=== PATIENT | female | born 1935 | race Caucasian/White ===

== ENCOUNTER 2016-12-14 13:47 | Inpatient (IN) | payer MEDICARE, MEDICAID ==
[~2016-12-14] VITALS: Ht 165.1 cm; Wt 53.5 kg
--- NOTE | 2016-12-14 13:50 | NUR ---
BIBRA 89 FROM HOME C/O GENERALIZED WEAKNESS AND SOB, PATIENT IS AAO4. APPEARS IN NO APPARENT DISTRESS. RESPIRATION EVEN AND UNLABORED. ON O2 VIA NC @2LPM. SKIN IS WARM TO TOUCH AND NON FDIAPHORETIC. AFEBRILE. VSS. 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 PATIENT DID NOT HAVE HD TODAY.
--- NOTE | 2016-12-14 14:26 | NUR ---
DESULFURIZER HAND AT BEDSIDE
[2016-12-14] MEDS ORDERED: VALS80TA2 PO (14:39)
[2016-12-14] MEDS ORDERED: AMIO200T2 PO (14:39)
[2016-12-14] MEDS ORDERED: RASA1TAB4 PO (14:39)
[2016-12-14] MEDS ORDERED: BUME1TAB4 PO (14:39)
[2016-12-14] MEDS ORDERED: CALC500T52 PO (14:39)
[2016-12-14] MEDS ORDERED: BUME1TAB16 PO (14:39)
[2016-12-14] MEDS ORDERED: UBIQ200C PO (14:39)
[2016-12-14] MEDS ORDERED: PRAM0.253 PO (14:39)
[2016-12-14] MEDS ORDERED: ACID1TAB12 PO (14:39)
[2016-12-14] MEDS ORDERED: ONDA4TAB5 PO (14:39)
[2016-12-14] MEDS ORDERED: CINA30TA PO (14:39)
[2016-12-14] MEDS ORDERED: SEVE800T8 PO (14:39)
[2016-12-14 14:48] LABS: CALCIUM, SERUM 9.1 mg/dL (8.5-10.1); CARBON DIOXIDE 29 mmol/L (21-32); CHLORIDE 96 mmol/L (98-107); CREATININE 3.5 mg/dL (0.6-1.3); GLUCOSE 98 mg/dL (74-106); POTASSIUM 4.4 mmol/L (3.5-5.1); SODIUM SERUM 129 mmol/L (136-145); UREA NITROGEN, BLOOD 30 mg/dL (7-18)
[2016-12-14 14:53] LABS: ALBUMIN 2.3 g/dL (3.4-5.0); ALKALINE PHOSPHATASE 126 U/L (46-116); ASPARTATE AMINOTRANSFERASE 17 U/L (15-37); BILIRUBIN,DIRECT 0.1 mg/dL (0.0-0.2); BILIRUBIN,TOTAL 0.4 mg/dL (0.2-1.0); TOTAL PROTEIN, SERUM 5.8 g/dL (6.4-8.2)
[2016-12-14 15:05] LABS: EOSINOPHILS % (AUTO) 0.3 % (0.0-6.0); HEMATOCRIT 29 % (33-45); HEMOGLOBIN 8.8 g/dL (11.5-14.8); LYMPHOCYTES # (AUTO) 1.1 /CMM (0.8-4.8); LYMPHOCYTES % (AUTO) 9.2 % (20.0-44.0); MEAN CORPUSCULAR HEMOGLOBIN 28 PG (26.0-33.0); MEAN CORPUSCULAR HGB CONC 31 g/dl (31.0-36.0); MEAN CORPUSCULAR VOLUME 92 fL (82-100); MONOCYTES # (AUTO) 0.6 /CMM (0.1-1.30); NEUTROPHILS # (AUTO) 10.5 /CMM (1.8-8.9); NEUTROPHILS % (AUTO) 85.5 % (43.0-81.0); PLATELET COUNT (AUTO) 333 /CMM (150-450); RDW COEFFICIENT OF VARIATION 17.1 (11.5-15.0); RED BLOOD CELL COUNT(AUTO) 3.11 MIL/uL (4.0-5.2); WHITE BLOOD COUNT (AUTO) 12.3 K/uL (4.3-11.0)
[2016-12-14 15:16] LABS: ALANINE AMINOTRANSFERASE 6 U/L (12-78)
--- NOTE | 2016-12-14 15:38 | NUR ---
PAGED CHRISSY PINON
--- NOTE | 2016-12-14 15:41 | NUR ---
NURSING WEAVE DEFECT CHARTING CLERK NOTIFIED ME THAT PATIENT IS ASSIGNED TO JOSE 119-2 HOWEVER BED WILL NOT BE AVAIALABLE UNTIL 1700
[2016-12-14 16:03] LABS: APPEARANCE,URINE Clear (CLEAR); BILIRUBIN,URINE Negative (NEGATIVE); BLOOD, URINE Small Ery/uL (NEGATIVE); COLOR,URINE Yellow (YELLOW); KETONES,URINE Trace (NEGATIVE); LEUKOCYTE ESTERASE ,URINE Small (NEGATIVE); NITRITE, URINE Negative (NEGATIVE); PROTEIN,URINE >=300 mg/dl (NEGATIVE); UGLUCOSE Negative (NEGATIVE); UROBILINOGEN,URINE 0.2 EU/dL (0.2)
[2016-12-14 16:07] LABS: INR 1.15 (0.87-1.13); PROTHROMBIN TIME 12.1 SECS (9.5-12.7)
[2016-12-14 16:15] LABS: BACTERIA,URINE Few /HPF (None Seen); SQUAMOUS EPITHELIAL CELL,UR Few /HPF (None Seen)
--- NOTE | 2016-12-14 16:33 | NUR ---
REPORT GIVEN TO SAROJ CARLISLE FOR ANDRA
--- NOTE | 2016-12-14 17:00 | NUR ---
ADMISSION NOTE RECEIVED PATIENT FROM [facility] IN ER VIA [facility]. DAUGHTER KAMILAH AT PATIENT'S BEDSIDE PROVIDING HISTORY. A+O X2, FOLLOWS SIMPLE COMMANDS. O2 NC 2L, SAT 95%, breathing even and unlabored no chest pain. L chest wall pacemaker, A pacing- 60bpm. generalized edema. wound assessment documented, photos in chart. L wrist iv patent. swallowing without aspiration. oriented to unit, discussed plan of care.
--- NOTE | 2016-12-14 18:19 | NUR ---
PT'S DAUGHTER KAMILAH SAID PATIENTS TAKES SINEMET 50/200 1 TAB TID, MED NOT IN RECON. NOTIFIED CHRISSY WITH 1 NEW TELEPHONE ORDER TO CONTINUE THAT HOME MED.
[2016-12-14 18:45] VITALS: BP 121/53
--- NOTE | 2016-12-14 19:30 | NUR ---
JOSE RN OPENING NOTES: RECEIVED PT ON BED AWAKE ALOX2-3 AND VERBALLY RESPONSIVE ON O2 VIA NC AT 2LPM, TOLERATED WELL, NOT IN APPARENT DISTRESS. CURRENTLY HAVING DIALYSIS AT THIS TIME, WITH DAUGHTER KAMILAH AT BEDSIDE. AFIB CONTROLLED ON MONITOR A PACING AT 60 BPM. IRMA AV SHUNT, WITH IV ACCES ON L WRIST G20 INTACT, KEPT SL. SAFETY MEASURES ENSURED. CALL LIGHT WITHIN REACH. CONTINUOUSLY MONITORED PATIENT.
[2016-12-14 20:00] VITALS: BP 152/61
[2016-12-14 20:29] VITALS: BP 152/61
--- NOTE | 2016-12-14 20:30 | NUR ---
RN NOTES: HD DONE, PATIENT NOT IN APPARENT DISTRESS. VITALS DOCUMENTED. 2LITERS OUTPUT. CONTINUOUSLY MONITORED.
--- NOTE | 2016-12-14 22:00 | NUR ---
RN NOTES: NOTED IV ACCESS INFILTRATED. PATIENT IS A HARD STICK UNABLE TO INSERT AFTER 2 ATTEMPTS. FAMILY AT BEDSIDE VERY CONCERNED. CALLED DR SARAH HARRIS IF OK TO GET MIDLINE ORDERS. ORDER OBTAINED. ALTAGRACIA PICC RN IN TO PERFORM MIDLINE INSERTION. SUCCESSFUL INSERTION NOTED. CONTINUOUSLY MONITORED SITE.
[2016-12-15] VITALS (8 sets, daily range): BP systolic 122–144; BP diastolic 49–63
[2016-12-15 06:31] LABS: HEMATOCRIT 28 % (33-45); HEMOGLOBIN 8.6 g/dL (11.5-14.8); MEAN CORPUSCULAR HEMOGLOBIN 28 PG (26.0-33.0); MEAN CORPUSCULAR HGB CONC 31 g/dl (31.0-36.0); MEAN CORPUSCULAR VOLUME 92 fL (82-100); PLATELET COUNT (AUTO) 279 /CMM (150-450); RDW COEFFICIENT OF VARIATION 17.4 (11.5-15.0); RED BLOOD CELL COUNT(AUTO) 3.03 MIL/uL (4.0-5.2); WHITE BLOOD COUNT (AUTO) 10.3 K/uL (4.3-11.0)
[2016-12-15 06:37] LABS: CALCIUM, SERUM 8.6 mg/dL (8.5-10.1); CARBON DIOXIDE 31 mmol/L (21-32); CHLORIDE 99 mmol/L (98-107); CREATININE 2.8 mg/dL (0.6-1.3); GLUCOSE 89 mg/dL (74-106); MAGNESIUM 1.7 mg/dL (1.8-2.4); PHOSPHORUS 3.4 mg/dL (2.5-4.9); POTASSIUM 4.1 mmol/L (3.5-5.1); SODIUM SERUM 134 mmol/L (136-145); UREA NITROGEN, BLOOD 23 mg/dL (7-18)
[2016-12-15 06:51] LABS: CHOLESTEROL 160 mg/dL (<200); HDL CHOLESTEROL 107 mg/dL (40-60); LDL 45 mg/dL (0-99); TRIGLYCERIDES 47 mg/dL (30-150)
--- NOTE | 2016-12-15 07:00 | NUR ---
RN NOTES: PATIENT NOT IN APPARENT DISTRESS. SKIN CARE RENDERED. AM LABS DRAWN, PENDING. FAMILY REMAINED AT BEDSIDE.CONTINUOUSLY MONITORED. ENDORSED TO AM SHIFT RN.
--- NOTE | 2016-12-15 07:20 | NUR ---
JOSE INITIAL NOTE RECEIVED PT IN BED, AWAKE, A/O X4, ABLE TO MAKE NEEDS KNOWN, ABLE TO FOLLOW COMMANDS, PT IS ON 2L NC, SATING WELL, NO S/S OF RESP. DISTRESS OR SOB NOTED AT THIS TIME, PT IS ON TELE MONITOR SHOWING A PACING W/BBB @60 BPM, NO C/O OF CHEST PAIN OR DISCOMFORT AT THIS TIME, PT HAS MULTIPLE SKIN ISSUES NOTED, TREATMENTS CARRIED OUT, PT HAS ALYSSA MIDLINE,RUNNING TKO, C/D/I/PATENT, FLUSHING WELL, NO S/S OF INFECTION/ INFILTRATION NOTED AT THIS TIME, IRMA AV SHUNT, DRESSING INTACT/CLEAN, DAUGHTERS AT BEDSIDE AT THIS TIME,ALL SAFETY MEASURES IN PLACE AT ALL TIMES, CALL LIGHT WITHIN EASY REACH, ALL NEEDS MET, WILL MONITOR PT CLOSELY FOR CHANGES
[2016-12-15 09:10] LABS: LYMPHOCYTES % (MANUAL) 5 % (16-48); MONOCYTES % (MANUAL) 6 % (0-11.0); NEUTROPHILS % (MANUAL) 89 (42-76)
--- NOTE | 2016-12-15 12:36 | NUR ---
JOSE NOTE MANUALLY ADMINISTERED MEDICATION, D/T SCANNER BROKEN, NOTIFIED IT X 4.
[2016-12-15 12:56] LABS: IRON, SERUM 27 ug/dl (50-175); TOTAL IRON BINDING CAPACITY 136 ug/dl (250-450)
[2016-12-15 13:10] LABS: FERRITIN 194 ng/mL (8-388)
--- NOTE | 2016-12-15 14:42 | NUR ---
consuelo note informed dr. henry regarding new consult. Addendum: 12/15/16 at 1444 by DUNG CHAN RN wrong pt
[2016-12-15 17:42] LABS: ABG BASE EXCESS 10.3 mmol/L; ABG OXYGEN SATURATION 94.4 % (92.0-98.5); ABG PCO2 72.6 mmHg (35.0-45.0); ABG PH 7.337 (7.350-7.450); ABG PO2 103.5 mmHg (75.0-100.0); AaDO2 25.1 mmHg; COHb 0.2 % (0.5-1.5); MetHb 0.3 % (0.0-1.5); O2Hb 93.9 % (94.0-97.0); SITE, ABG Left Radial; VENT MODE, BG 3/L NASAL CANNULA
--- NOTE | 2016-12-15 19:33 | NUR ---
RN INITIAL NOTE; PT ON THE BED RESTING , FAMILY AT THE BED SIDE . A/O X 3 , HARD OF HEARING . BREATHING EVEN AND UNLABORED ON 2 LPM VIA NC . TELE MONITOR SHOWING A-PACING 60 . ALYSSA MIDLINE INTACT AND PATENT . IRMA AV SHUNT INTACT . BRUIT AND THRILL PRESENT . PT IS ANURIC . CONTINENT TO BOWEL . BED IN THE LOWEST AND LOCKED POSITION . SAFETY MEASURES APPLIED. DENIED ANY PAIN AT THIS TIME . WILL CONTINUE TO MONITOR .
[2016-12-16] VITALS (8 sets, daily range): BP systolic 146–167; BP diastolic 47–65
--- NOTE | 2016-12-16 01:05 | NUR ---
RN NOTE; PRN ZOFRAN 4 MG IV GIVEN FOR C/O NAUSEA . TOLERATED WELL AT THIS TIME . WILL REASSESS.
[2016-12-16 06:32] LABS: HEMATOCRIT 29 % (33-45); HEMOGLOBIN 9.2 g/dL (11.5-14.8); MEAN CORPUSCULAR HEMOGLOBIN 29 PG (26.0-33.0); MEAN CORPUSCULAR HGB CONC 32 g/dl (31.0-36.0); MEAN CORPUSCULAR VOLUME 91 fL (82-100); PLATELET COUNT (AUTO) 303 /CMM (150-450); RDW COEFFICIENT OF VARIATION 17.7 (11.5-15.0); RED BLOOD CELL COUNT(AUTO) 3.19 MIL/uL (4.0-5.2); WHITE BLOOD COUNT (AUTO) 11.1 K/uL (4.3-11.0)
--- NOTE | 2016-12-16 07:13 | NUR ---
RN EOS NOTE; PT REMAINED STABLE DURING THE SHIFT. NO ANY DISTRESS NOTED . ALL NEEDS ATTENDED PROMPTLY. ATB CONTINUE . WILL ENDORSE TO NEXT SHIFT RN FOR CONTINUITY OF CARE .
--- NOTE | 2016-12-16 07:30 | NUR ---
INDEPENDENT JEWELER AM NOTE; PT IN BED, ASLEEP, RESPONDS TO NAME AND TOUCH, FAMILY AT THE BED SIDE . A/O X 3 , HARD OF HEARING . BREATHING EVEN AND UNLABORED ON 2 LPM VIA NC . TELE MONITOR SHOWING A-PACING 60 . DENIED ANY PAIN AT THIS TIME . ALYSSA MIDLINE INTACT AND PATENT . IRMA AV SHUNT INTACT. BRUIT AND THRILL PRESENT . PT IS OLIGURIC, CONTINENT OF BOWEL . 2 GM NA, GLUTEN, LAST HD 12/15/16 2.5 L OUT. BED IN THE LOWEST AND LOCKED POSITION . SAFETY MEASURES APPLIED. WILL CONTINUE TO MONITOR .
[2016-12-16 08:31] LABS: CARBON DIOXIDE 34 mmol/L (21-32); CHLORIDE 97 mmol/L (98-107); CREATININE 2.6 mg/dL (0.6-1.3); GLUCOSE 82 mg/dL (74-106); MAGNESIUM 1.8 mg/dL (1.8-2.4); POTASSIUM 4.4 mmol/L (3.5-5.1); SODIUM SERUM 133 mmol/L (136-145); UREA NITROGEN, BLOOD 20 mg/dL (7-18)
--- NOTE | 2016-12-16 09:30 | NUR ---
MULTIPLE DRUM SANDER NOTES ADMINISTERED DUE MEDS.
[2016-12-16 12:20] LABS: BAND % (MANUAL) 1 % (0.0-5.0); EOSINOPHILS % (MANUAL) 2 % (0-4); LYMPHOCYTES % (MANUAL) 13 % (16-48); MONOCYTES % (MANUAL) 6 % (0-11.0); NEUTROPHILS % (MANUAL) 78 (42-76)
--- NOTE | 2016-12-16 13:09 | NUR ---
ELECTRIC MOTOR FITTER NOTES STARTED ZOSYN IV.
--- NOTE | 2016-12-16 16:37 | NUR ---
BENCH CARPENTER NOTES STARTED ISIAH RAZA.
--- NOTE | 2016-12-16 18:30 | NUR ---
DIMENSION WAREHOUSE SUPERVISOR NOTES PATIENT RESTING COMFORTABLY IN BED, NOT IN ANY DISTRESS, DENIES PAIN. ALYSSA MIDLINE IN PLACE, FLUSHES WELL, SITE CLEAR, CDI DRESSING. ALL NEEDS MET. NO OTHER SIGNIFICANT CHANGE IN CONDITION. CALL LIGHT WITHIN REACH. FAMILY AT BEDSIDE. SAFETY MEASURES IN PLACE. WILL ENDORSE TO NEXT SHIFT FOR ANDRA.
--- NOTE | 2016-12-16 19:05 | NUR ---
SERVICE ORDER EXPEDITER OPENING NOTES: RECEIVED PT IN BED RESTING COMFORTABLY WITH FAMILY AT BEDSIDE. PT IS ON 2LPM VIA NC AND IS TOLERATING WELL. PT HAS ALYSSA MIDLINE AND IRMA AV SHUNT WELL. CALL LIGHT WITHIN PT'S REACH. NO S/S OF DISTRESS NOTED AT THIS TIME. BED KEPT IN LOW, LOCKED POSITION, AND SIDE RAILS X 2 UP. WILL CONTINUE TO MONITOR PT.
--- NOTE | 2016-12-16 22:00 | NUR ---
PT REFUSES BIPAP
--- NOTE | 2016-12-16 22:10 | NUR ---
PREPRESS SUPERVISOR NOTES: PT ALONG WITH DAUGHTER AT BEDSIDE REFUSED BIPAP. PT IS CLAUSTROPHOBIC AND DAUGHTER SAID SHE WILL NOT COOPERATE.
[2016-12-17] VITALS: BP 162/75
--- NOTE | 2016-12-17 | NUR ---
LINE O SCRIBE OPERATOR NOTES: PT DENIES OF ANY PAIN. NO S/S OF DISTRESS NOTED AT THIS TIME. WILL CONTINUE TO MONITOR PT.
[2016-12-17 04:00] VITALS: BP 168/57
--- NOTE | 2016-12-17 05:51 | NUR ---
PLATER SUPERVISOR NOTES: RECHECKED BP AND IS NOW 160/63 HR 62. PT STILL DENIES OF ANY DISCOMFORT OR PAIN.
[2016-12-17 06:27] LABS: HEMATOCRIT 31 % (33-45); HEMOGLOBIN 9.7 g/dL (11.5-14.8); MEAN CORPUSCULAR HEMOGLOBIN 29 PG (26.0-33.0); MEAN CORPUSCULAR HGB CONC 31 g/dl (31.0-36.0); MEAN CORPUSCULAR VOLUME 91 fL (82-100); PLATELET COUNT (AUTO) 328 /CMM (150-450); RDW COEFFICIENT OF VARIATION 18.1 (11.5-15.0); RED BLOOD CELL COUNT(AUTO) 3.41 MIL/uL (4.0-5.2); WHITE BLOOD COUNT (AUTO) 11.6 K/uL (4.3-11.0)
--- NOTE | 2016-12-17 06:36 | NUR ---
MANAGER PEST NOTES: PT COMPLAINED OF NAUSEA. PT WAS ADMINISTERED ONDANSETRON IV. WILL CONTINUE TO MONITOR PT.
[2016-12-17 07:02] LABS: CALCIUM, SERUM 9.4 mg/dL (8.5-10.1); CARBON DIOXIDE 32 mmol/L (21-32); CHLORIDE 95 mmol/L (98-107); GLUCOSE 78 mg/dL (74-106); MAGNESIUM 1.7 mg/dL (1.8-2.4); PHOSPHORUS 3.6 mg/dL (2.5-4.9); POTASSIUM 4.5 mmol/L (3.5-5.1); SODIUM SERUM 131 mmol/L (136-145); UREA NITROGEN, BLOOD 24 mg/dL (7-18)
--- NOTE | 2016-12-17 07:15 | NUR ---
GERONTOLOGY AIDE CLOSING NOTES: ALL NEEDS WERE ATTENDED AND ANTICIPATED FOR. PT IS IN BED RESTING WITH DAUGHTER AT BEDSIDE. PT IS ON 2LPM VIA NC AND IS TOLERATING WELL. PT HAS ALYSSA MIDLINE. MIDLINE IS FLUSHING WELL. PT ALSO HAS IRMA AV SHUNT WELL. CALL LIGHT WITHIN PT'S REACH. NO S/S OF DISTRESS NOTED AT THIS TIME. BED KEPT IN LOW, LOCKED POSITION, AND SIDE RAILS X 2 UP. ENDORSED TO AM NURSE FOR ANDRA.
--- NOTE | 2016-12-17 07:40 | NUR ---
RN NOTES REPORT RECV'D FROM NOC RN. PT AWAKE. NONVERBAL. VENT SETTINGS AC 12, TV 5, FIO2 30%, PEEP 5. NON LABORED BREATHING. SUCTION NEEDED. HOB ELEVATED. MALFUNCTIONING HD CATH. TELE NSR 80'S. MULTIPLE SACRAL AND THIGH PRESSURE SORES SPECIALTY MATRESS ORDERED AND MEPILEX DRSGS CDI. WBC 11.6. WOUND CARE NURSE NOTIFIED. RH 20G IV PATENT. BED IN LOW LOCKED POSITION. WILL CONT TO MONITOR CLOSELY.
--- NOTE | 2016-12-17 07:59 | NUR ---
INSIDE TRUCKER INITIAL NOTE RN RECEIVED PT IN BED RESTING COMFORTABLY WITH DAUGHTER AT BEDSIDE. PT IS ON 2LPM VIA NC AND IS TOLERATING WELL. PT HAS ALYSSA MIDLINE AND IRMA AV SHUNT WELL. CALL LIGHT WITHIN PT'S REACH. NO S/S OF DISTRESS NOTED AT THIS TIME. BED IN LOW, LOCKED POSITION, AND SIDE RAILS X 2 UP. RN WILL CONTINUE TO MONITOR PT THROUGHOUT THE DAY . Addendum: 12/17/16 at 0802 by DEBI TREVIÑO RN PT IS ON TELE MONITOR AND IS A PACING WITH BBB.
[2016-12-17 08:00] VITALS: BP 141/48
[2016-12-17 10:18] LABS: LYMPHOCYTES % (MANUAL) 14 % (16-48); MONOCYTES % (MANUAL) 6 % (0-11.0); NEUTROPHILS % (MANUAL) 80 (42-76)
[2016-12-17 12:00] VITALS: BP_SYST 120; BP_SYST 141; BP_DIAS 54; BP_DIAS 55
[2016-12-17 16:00] VITALS: BP_SYST 151; BP_DIAS 44; BP_DIAS 72
--- NOTE | 2016-12-17 19:20 | NUR ---
RN NOTES RECEIVED PT ASLEEP ON BED. DAUGHTER AT BEDSIDE. PT IS AOX 3 ABLE TO VERBALIZED NEEDS. RESPONSIVE TO TACTILE AND VERBAL STIMULI. NO ACUTE RESP DISTRESS. TELE MONITOR REVEALS A- PACING WITH BBB HR 60'S. DENIES PAIN. NOTED LEFT FOREARM SKIN TEAR OUT OF DRESSING PLACED STERILE STRIPS. IV SITE ON ALYSSA MIDLINE INTACT AND PATENT. AND IRMA AV SHUNT WITH POSITIVE BRUIT AND THRILL. . KEPT PT CLEAN AND DRY. WILL MONITORED FREQ.
--- NOTE | 2016-12-17 19:26 | NUR ---
CUSHION SPRING ASSEMBLER CLOSING NOTES: ALL NEEDS MEET ATTENDED PT IS IN BED RESTING PT DAUGHTER AT BEDSIDE. PT IS ON 2LPM VIA NC AND IS TOLERATING WELL. PT HAS ALYSSA MIDLINE. MIDLINE IS FLUSHING WELL. PT ALSO HAS IRMA AV SHUNT WELL HD TODAY 1L REMOVED . CALL LIGHT WITHIN PT'S REACH. NO S/S OF DISTRESS NOTED AT THIS TIME. BED KEPT IN LOW, LOCKED POSITION, AND SIDE RAILS X 2 UP. ENDORSED TO PM NURSE FOR ANDRA.
[2016-12-17 20:00] VITALS: BP_SYST 152; BP_DIAS 45; BP_DIAS 75
[2016-12-18] VITALS: BP 141/42
[2016-12-18 04:00] VITALS: BP 138/41
--- NOTE | 2016-12-18 07:00 | NUR ---
RN NOTE RECEIVED PT ON BED, A/Ox3, ON O2 2L N/C , RESPIRATION EVEN AND UNLABORED, NO SOB NOTED, L UA MIDLINE CDI, SUPPORTIVE FAMILY AT THE BEDSIDE, CALL LIGHT WITHIN EASY REACH. BED LOCKED AND IN LOWEST POSITION , SIDE RAILS X 3 UP. CONTINUE TO MONITOR PT CLOSELY AND NOTIFY MD FOR ANY SIGNIFICANT CHANGES.
--- NOTE | 2016-12-18 07:07 | NUR ---
RN NOTES PT ASLEEP WELL ON BED. WITH O2 2LPM VIA NC SATING 98%. NO ACUTE RESP DISTRESS. AFEBRILE. VS STABLE. DAUGHTER AT BEDSIDE. BREATH SOUND CLEAR.IV SITE REMAINED INTACT AND PATENT. USED BEDPAN FOR BLADDER/ NO BOWEL AT THIS TIME. SUPPOSITORY GIVEN ORDERED PER DAUGHTER REQUESTED. KEPT PT CLEAN AND DRY. WILL ENDORSED CONTINUITY OF CARE TO AM NURSE.
[2016-12-18 07:10] LABS: HEMATOCRIT 30 % (33-45); HEMOGLOBIN 9.2 g/dL (11.5-14.8); MEAN CORPUSCULAR HEMOGLOBIN 28 PG (26.0-33.0); MEAN CORPUSCULAR HGB CONC 31 g/dl (31.0-36.0); MEAN CORPUSCULAR VOLUME 91 fL (82-100); PLATELET COUNT (AUTO) 270 /CMM (150-450); RDW COEFFICIENT OF VARIATION 17.3 (11.5-15.0); RED BLOOD CELL COUNT(AUTO) 3.25 MIL/uL (4.0-5.2); WHITE BLOOD COUNT (AUTO) 13.3 K/uL (4.3-11.0)
[2016-12-18 07:51] LABS: CALCIUM, SERUM 9.1 mg/dL (8.5-10.1); CARBON DIOXIDE 30 mmol/L (21-32); CHLORIDE 94 mmol/L (98-107); GLUCOSE 75 mg/dL (74-106); POTASSIUM 4.7 mmol/L (3.5-5.1); SODIUM SERUM 130 mmol/L (136-145); UREA NITROGEN, BLOOD 25 mg/dL (7-18)
[2016-12-18 08:00] VITALS: BP 148/64
[2016-12-18 09:01] LABS: LYMPHOCYTES % (MANUAL) 5 % (16-48); MONOCYTES % (MANUAL) 3 % (0-11.0); NEUTROPHILS % (MANUAL) 92 (42-76)
[2016-12-18 09:02] LABS: BASOPHILS % (MANUAL) 0 % (0.0-2.0); EOSINOPHILS % (MANUAL) 0 % (0-4)
[2016-12-18 12:00] VITALS: BP 158/58
--- NOTE | 2016-12-18 14:00 | NUR ---
RN NOTES SUPPORTIVE FAMILY AT THE BEDSIDE, PT HAS NOT HAVE BM YET, BETTY ALVARADO TOWER OBSERVER NOTIFIED, NEW ORDER GIVEN FOE CT OF ABDOMEN, CONTINUE TO MONITOR PT CLOSELY.
[2016-12-18 16:00] VITALS: BP 162/52
--- NOTE | 2016-12-18 18:30 | NUR ---
RN NOTES PT TWYLA ANY DISTRESS AT THIS TIME , SUPPORTIVE DAUGHTER AT THE BEDSIDE , NO RESULTS FROM FLEETS ENEMA YET , WILL ENDORCE TO BUS GREASER NURSE FOR CONTINUITY OF CARE .
--- NOTE | 2016-12-18 19:45 | NUR ---
DRY KILN OPERATOR HELPER DISCUSSED W/FAMILY WHERE TO TAKE BP PT HAS AV FISTULA ON RIGHT ARM AND MIDLINE ON LEFT ARM. AGREED TO TAKE BP ON LEG. PT DAUGHTER THEN SPOKE TO CHARGE NURSE THAT BP SHOULD NOT BE TAKEN ON LEG PER STEELSCOPE OPERATOR. RETOOK BP OVER MIDLINE PER FAMILY REQUEST. CONTINUE TO MONITOR.
[2016-12-18 20:00] VITALS: BP 133/56
--- NOTE | 2016-12-18 20:00 | NUR ---
RN NOTEs - RECEIVED PT ON BED, A/Ox3, ON O2 2L N/C , RESPIRATION EVEN AND UNLABORED, NO SOB NOTED, ALYSSA MIDLINE CDI, SUPPORTIVE FAMILY AT THE BEDSIDE, CALL LIGHT WITHIN EASY REACH. PT HAS NOT HAD A BOWEL MOVEMENT SINCE 0 BED LOCKED AND IN LOWEST POSITION, SIDE RAILS X 3 UP. CONTINUE TO MONITOR PT CLOSELY AND NOTIFY MD FOR ANY SIGNIFICANT CHANGES.
--- NOTE | 2016-12-18 22:00 | NUR ---
pt had small amount of mucoid stool, but no bowel movement, pt was given some prune juice and some tea to try to help pt have a bowel movement.
[2016-12-19] VITALS (8 sets, daily range): BP systolic 101–146; BP diastolic 43–78
[2016-12-19 07:28] LABS: EOSINOPHILS # (AUTO) 0.1 /CMM (0.0-0.7); EOSINOPHILS % (AUTO) 0.4 % (0.0-6.0); HEMATOCRIT 30 % (33-45); HEMOGLOBIN 9.2 g/dL (11.5-14.8); LYMPHOCYTES # (AUTO) 1.1 /CMM (0.8-4.8); LYMPHOCYTES % (AUTO) 7.8 % (20.0-44.0); MEAN CORPUSCULAR HEMOGLOBIN 28 PG (26.0-33.0); MEAN CORPUSCULAR HGB CONC 31 g/dl (31.0-36.0); MEAN CORPUSCULAR VOLUME 91 fL (82-100); MONOCYTES # (AUTO) 0.7 /CMM (0.1-1.30); MONOCYTES % (AUTO) 5.2 % (2.0-12.0); NEUTROPHILS # (AUTO) 11.7 /CMM (1.8-8.9); NEUTROPHILS % (AUTO) 86.6 % (43.0-81.0); PLATELET COUNT (AUTO) 260 /CMM (150-450); RDW COEFFICIENT OF VARIATION 17.5 (11.5-15.0); RED BLOOD CELL COUNT(AUTO) 3.27 MIL/uL (4.0-5.2); WHITE BLOOD COUNT (AUTO) 13.5 K/uL (4.3-11.0)
--- NOTE | 2016-12-19 07:45 | NUR ---
Tele/RN - Initial Notes Received pt awake in bed with daughters assisting pt to bed abernathy. Pt alert and oriented x3, with confusion. On tele AV-pacing 61 with BBB. Safety and comfort measures in place. Will continue to monitor pt closely.
[2016-12-19 07:50] LABS: CALCIUM, SERUM 9.5 mg/dL (8.5-10.1); CARBON DIOXIDE 29 mmol/L (21-32); CHLORIDE 93 mmol/L (98-107); CREATININE 3.5 mg/dL (0.6-1.3); POTASSIUM 4.8 mmol/L (3.5-5.1); SODIUM SERUM 128 mmol/L (136-145); UREA NITROGEN, BLOOD 31 mg/dL (7-18)
[2016-12-19 07:51] LABS: GLUCOSE 50 mg/dL (74-106)
--- NOTE | 2016-12-19 08:10 | NUR ---
Tele/RN - Notes Upon reviewing AM labs, glucose level 50. Fingerstick blood glucose obtained with result 57. Pt awake and responsive with daughter's at bedside. Given pt orange juice mixed with sugar. Will reassess accordingly.
[2016-12-19 08:51] LABS: ABG BASE EXCESS 4.6 mmol/L; ABG OXYGEN SATURATION 89.3 % (92.0-98.5); ABG PCO2 59.6 mmHg (35.0-45.0); ABG PO2 62.7 mmHg (75.0-100.0); AaDO2 66.6 mmHg; MetHb 0.3 % (0.0-1.5); O2Hb 88.1 % (94.0-97.0); SITE, ABG Left Radial; VENT MODE, BG Nasal Cannula
--- NOTE | 2016-12-19 09:00 | NUR ---
Tele/RN - Notes ABG results relayed to Dr Bhagat, with no new orders received at this time.
--- NOTE | 2016-12-19 09:05 | NUR ---
Tele/RN - Notes BP medication held, pt will have Hemodialysis today.
--- NOTE | 2016-12-19 09:20 | NUR ---
Tele/RN - Notes Fingerstick blood glucose reassessed, 62. Pt given another orange juice mixed with sugar. Pt awake and alert. Will reassess accordingly.
--- NOTE | 2016-12-19 11:05 | NUR ---
Tele/RN- Notes Blood sugar reassessed, 72.
--- NOTE | 2016-12-19 13:00 | NUR ---
Tele/RN - Notes Pt on hemodialysis at this time. Daughters at bedside. Pt in no acute distress.
--- NOTE | 2016-12-19 15:30 | NUR ---
Tele/RN - Notes Hemodialysis completed with 1.5 L output. Vital signs stable.
[2016-12-20] VITALS (10 sets, daily range): BP systolic 112–154; BP diastolic 44–68
--- NOTE | 2016-12-20 01:39 | NUR ---
CREPE SOLE SCOURER PT GIVEN FINAL DOSE OF LACTULOSE SHE DID NOT HAVE BM. CONTINUE TO MONITOR.
--- NOTE | 2016-12-20 07:02 | NUR ---
RELATIONS MGR PT HAD WALNUT SIZE BOWEL MOVEMENTS. ALL DOSES OF LACTULOSE ADMINISTERED. PTS DAUGHTER HANDLES ALL PT CARE INCLUDING REPOSITIONING AND BEDPANS.
[2016-12-20 07:28] LABS: HEMATOCRIT 29 % (33-45); HEMOGLOBIN 9.1 g/dL (11.5-14.8); MEAN CORPUSCULAR HEMOGLOBIN 28 PG (26.0-33.0); MEAN CORPUSCULAR HGB CONC 31 g/dl (31.0-36.0); MEAN CORPUSCULAR VOLUME 91 fL (82-100); PLATELET COUNT (AUTO) 258 /CMM (150-450); RDW COEFFICIENT OF VARIATION 18.4 (11.5-15.0); RED BLOOD CELL COUNT(AUTO) 3.23 MIL/uL (4.0-5.2); WHITE BLOOD COUNT (AUTO) 16.5 K/uL (4.3-11.0)
[2016-12-20 07:37] LABS: CALCIUM, SERUM 9.5 mg/dL (8.5-10.1); CARBON DIOXIDE 32 mmol/L (21-32); CHLORIDE 96 mmol/L (98-107); CREATININE 3.1 mg/dL (0.6-1.3); GLUCOSE 67 mg/dL (74-106); POTASSIUM 4.4 mmol/L (3.5-5.1); SODIUM SERUM 130 mmol/L (136-145); UREA NITROGEN, BLOOD 24 mg/dL (7-18)
--- NOTE | 2016-12-20 08:03 | NUR ---
CHIEF LEGAL OFFICER INITIAL NOTE RN RECEIVED PT IN BED RESTING COMFORTABLY WITH DAUGHTER AT BEDSIDE. PT IS ON 2LPM VIA NC AND IS TOLERATING WELL. PT HAS ALYSSA MIDLINE AND IRMA AV SHUNT WELL. CALL LIGHT WITHIN PT'S REACH. NO S/S OF DISTRESS NOTED AT THIS TIME. BED IN LOW, LOCKED POSITION, AND SIDE RAILS X 2 UP. RN WILL CONTINUE TO MONITOR PT THROUGHOUT THE DAY. LOUIE PERFORMED RN AWAITING RESULTS
[2016-12-20 08:46] LABS: BAND % (MANUAL) 1 % (0.0-5.0); EOSINOPHILS % (MANUAL) 1 % (0-4); LYMPHOCYTES % (MANUAL) 5 % (16-48); MONOCYTES % (MANUAL) 1 % (0-11.0); NEUTROPHILS % (MANUAL) 92 (42-76)
--- NOTE | 2016-12-20 11:20 | NUR ---
RN NOTE PATIENT DISIMPACTED MEDIUM SIZE ROUND STOOL REMOVED RN ALSO ADMINISTERED PRN SUPPOSITORY PATIENT ABDOMEN DISTENDED PATIENT STATES DISCOMFORT. PATIENT ALSO GIVEN ZOFRAN FOR NAUSEA AFTER MEDICATION ADMINISTRATION. RN WILL CONTINUE TO FOLLOW .
[2016-12-20 13:25] LABS: APPEARANCE,URINE CLOUDY (CLEAR); BILIRUBIN,URINE NEGATIVE (NEGATIVE); BLOOD, URINE TRACE Ery/uL (NEGATIVE); COLOR,URINE YELLOW (YELLOW); KETONES,URINE NEGATIVE (NEGATIVE); LEUKOCYTE ESTERASE ,URINE 2+ (NEGATIVE); NITRITE, URINE NEGATIVE (NEGATIVE); PROTEIN,URINE 2+ mg/dl (NEGATIVE); UGLUCOSE NEGATIVE (NEGATIVE); UROBILINOGEN,URINE 0.2 EU/dL (0.2)
[2016-12-20 14:26] LABS: BACTERIA,URINE Few /HPF (None Seen); SQUAMOUS EPITHELIAL CELL,UR Moderate /HPF (None Seen); YEAST,URINE Few /HPF (None Seen)
[2016-12-20 14:27] LABS: CALCIUM OXALATE CRYSTALS,UR RARE /HPF (None Seen)
--- NOTE | 2016-12-20 16:06 | NUR ---
RN NOTE PATIENT HAVING SOME DIFFICULTY WITH BOWEL MOVEMENT SMALL AMOUNT , RN CONTINUE MONITOR ALSO PATIENT HAS SCHEDULED 1 X DOSE VANCOMYCIN PER PHARMACY ADMINISTRATION LATE DUE TO PHARMACY MIXING THE MEDICATION RN CONTACTED PHARMACY AND AWAITING MEDICATION RN , UPDATED THE PATIENTS FAMILY IN REGARDS TO THE PLAN RN WILL CONTINUE TO MONITOR PATIENT
--- NOTE | 2016-12-20 19:12 | NUR ---
RN NOTE PATIENT STABLE THROUGHOUT THE DAY PATIENT HAS HAD MULTIPLE BOWEL MOVEMENTS ALL SMALL IN NATURE , PATIENT STATES SOME RELIEF , PATIENT ALSO RECEIVED A THORACENTESIS TODAY WITH 700ML REMOVED , PATIENT STILL ON 2L NASAL CANNULA AND IS STABLE AT THIS TIME DAUGHTERS AT BEDSIDE . RN WILL ENDORSE CONTINUATION OF CARE TO PM RN
--- NOTE | 2016-12-20 19:30 | NUR ---
RN OPENING NTOES; RECEIVED PT ON BED AWAKE ALERT X1-2. ON O2 VIA NC AT 2LPM, NOT IN APPARENT DISTRESS. APACING ON MONITOR SR AT 67 BPM. IV ACCES ON ALYSSA MIDLINE INTACT FLUSHING WELL. IRMA AV SHUNT, WITH BRUITS AND THRILLS. WITH DAUGHTER KAMILAH AT BEDSIDE. DAUGHTER REPORTED SHE HAS HAD FREQUENT MEDIUM TO LARGE BOWEL MOVEMENTS SINCE 6PM. RENDERED SKIN CARE PATIENT REQUESTING TO BE ON BED FIGUEROA FOR BOWEL MOVEMENT. REPORTED PATIENT WAS GIVEN LAXATIVES IN THE MORNING. TO MONITOR BM AND OUTPUT. INSTRUCTED AND ENCOURAGED PATIENT TO HAVE INCREASE IN ORAL INTAKE. SAFETY MEASURES ENSURED.
--- NOTE | 2016-12-20 20:00 | NUR ---
RN NOTES; PATIENT CONTINUOUSLY HAVING BOWEL MOVEMENTS. EXPLAINED TO KAMILAH PATIENT'S DAUGHTER AND CAREGIVER THAT THERE IS NEW ORDER FOR ENEMA. KAMILAH REFUSING PATIENT HAS HER BOWELS MOVING ALREADY AND SHE HAS HAD APPROXIMATELY 8 BM'S JUST TONIGHT. CONCEDED TO PATIENT/ FAMILY'S REQUEST AT THIS TIME. STOOL NOW NOTED TO BE VERY SOFT ALMOST LIQUID OF LARGE AMOUNTS. CONTINUOUSLY MONITORED.
[2016-12-21] VITALS: BP 119/38
[2016-12-21 04:00] VITALS: BP 123/39
[2016-12-21 06:38] LABS: BASOPHILS % (AUTO) 0.1 % (0.0-2.0); EOSINOPHILS # (AUTO) 0.1 /CMM (0.0-0.7); EOSINOPHILS % (AUTO) 0.6 % (0.0-6.0); HEMATOCRIT 29 % (33-45); LYMPHOCYTES # (AUTO) 0.9 /CMM (0.8-4.8); LYMPHOCYTES % (AUTO) 4.7 % (20.0-44.0); MEAN CORPUSCULAR HEMOGLOBIN 28 PG (26.0-33.0); MEAN CORPUSCULAR HGB CONC 31 g/dl (31.0-36.0); MEAN CORPUSCULAR VOLUME 92 fL (82-100); MONOCYTES # (AUTO) 0.5 /CMM (0.1-1.30); MONOCYTES % (AUTO) 2.5 % (2.0-12.0); NEUTROPHILS # (AUTO) 17.2 /CMM (1.8-8.9); NEUTROPHILS % (AUTO) 92.1 % (43.0-81.0); PLATELET COUNT (AUTO) 268 /CMM (150-450); RDW COEFFICIENT OF VARIATION 18.5 (11.5-15.0); RED BLOOD CELL COUNT(AUTO) 3.16 MIL/uL (4.0-5.2); WHITE BLOOD COUNT (AUTO) 18.6 K/uL (4.3-11.0)
--- NOTE | 2016-12-21 06:45 | NUR ---
RN CLOSING NOTES: PATIENT REMAINED IN BED NOT IN APPARENT DISTRESS. KEPT ON O2 THERAPY. IV ACCESS REMAINED INTACT. SKIN CARE RENDERED. SAFETY MEASURES ENSURED. DAUGHTER AT BEDSIDE. AM LABS DRAWN, RESULTS PENDING. CONTINUOUSLY MONITORED. TO ENDORSE TO AM SHIFT RN.
--- NOTE | 2016-12-21 07:05 | NUR ---
RN NOTES RECV'D REPORT FROM NOC CARLA KYLE. PT A&OX3. NO DISTRESS AT PRESENT TIME. VENT TRACH ABLE TO VERBALIZE SOMEWHAT. PORTEX #8 AC 12, TV 500, FIO2 30%, PEEP 5. HOB ELEVATED. PEG NO RESIDUALS NOVASOURCE 40ML/HR RUNNING. RUE 20G PIV TKO. LAB GLUCOSE 5:55AM = 47. 0600 FINGERSTICK = 152 AND RECHECKED AT 0730 = 157. PT DENIES SYMPOTMS OF HYPOGLYCEMIA. SPECIALTY BED. WBC 18 IV ABX. ELIQUIS. PENDING REPLACEMENT OF HD CATH. TELE ST 103. MRSA NARES ISOLATION PRECAUTIONS. BED IN LOW LOCKED POSITION. WILL CONT TO MONITOR CLOSELY.
[2016-12-21 07:09] LABS: CALCIUM, SERUM 9.7 mg/dL (8.5-10.1); CARBON DIOXIDE 30 mmol/L (21-32); CHLORIDE 96 mmol/L (98-107); CREATININE 3.5 mg/dL (0.6-1.3); POTASSIUM 4.5 mmol/L (3.5-5.1); SODIUM SERUM 130 mmol/L (136-145); UREA NITROGEN, BLOOD 31 mg/dL (7-18); VANCOMYCIN,TROUGH 17 ug/ml (12-20)
--- NOTE | 2016-12-21 07:15 | NUR ---
ONLINE COMMUNICATIONS MANAGER INITIAL NOTE RN RECEIVED PT IN BED RESTING COMFORTABLY WITH DAUGHTER AT BEDSIDE. PT IS ON 2LPM VIA NC AND IS TOLERATING WELL. PT HAS ALYSSA MIDLINE AND IRMA AV SHUNT WELL. CALL LIGHT WITHIN PT'S REACH. NO S/S OF DISTRESS NOTED AT THIS TIME. BED IN LOW, LOCKED POSITION, AND SIDE RAILS X 2 UP. RN WILL CONTINUE TO MONITOR PT THROUGHOUT THE DAY. PTS FAMILY STATED PATIENT HAD MULTIPLE BOWEL MOVEMENTS THROUGHOUT THE NIGHT. PATIENTS ABDOMEN SIGNIFICANTLY SMALLER
[2016-12-21 07:18] LABS: GLUCOSE 47 mg/dL (74-106)
--- NOTE | 2016-12-21 07:34 | NUR ---
RN NOTE RN RECEIVED CALL IN REGARDS TO LOW CBG LEVELS. PATIENT CBG CHECKED MANUALLY AND FOUND TO BE 39 RN PROVIDED 2 ORANGE JUICE WITH TWO PACKS OF SUGAR WHILE AWAITING MD RETURN CALL. GARDEN IMPLEMENT MECHANIC NOTIFIED AND CHARGE NURSE NOTIFIED
--- NOTE | 2016-12-21 07:46 | NUR ---
RN NOTE BETTY ALVARADO HAND CULTIVATOR. NOTIFIED IN REGARDS TO LOW CBG , AND PLAN OF CARE PATIENT IS ASYMPTOMATIC AT THIS TIME RN WILL CONTINUE TK FOLLOW
[2016-12-21 08:00] VITALS: BP 176/54
--- NOTE | 2016-12-21 10:32 | NUR ---
RN NOTE PATIENT ASPIRATION SPECIMEN THROWN OUT YESTERDAY UNABLE TO SEND OFF TO THE LAB FOR CULTURE , MD BETTY ALVARADO SUPERVISOR VINE FRUIT FARMING ASSOCIATE NOTIFIED AND STATES SHE WILL UPDATE THE TEAM WITHING A HR
--- NOTE | 2016-12-21 19:49 | NUR ---
RN CLOSING NOTE PATIENT STABLE THROUGHOUT THE DAY PATIENT HAS HAD MINIMAL BOWEL MOVEMENTS ALL SMALL IN NATURE , PATIENT STATES RELIEF ,AND EXPRESSED THAT SHE NO LONGER WANTS STOOL SOFTNER PATIENT STILL ON 2L NASAL CANNULA AND IS STABLE AT THIS TIME DAUGHTERS AT BEDSIDE . RN WILL ENDORSE CONTINUATION OF CARE TO PM RN
[2016-12-21 20:00] VITALS: BP 138/74
--- NOTE | 2016-12-21 20:00 | NUR ---
RN NOTES RECEIVED PATIENT AWAKE IN BED WITH NO DISTRESS NOTED. BREATHING EVEN AND UNLABORED. O2 @2LPM VIA NASAL CANNULA WELL TOLERATED. HOB ELEVATED. ALERT AND ORIENTED. VERBALLY ABLE TO COMMUNICATE NEEDS. FAMILY AT BEDSIDE. NO COMPLAINT OF PAIN OF THIS TIME. ABDOMEN SOFT AND NON TENDER. BOWEL SOUNDS PRESENT IN ALL FOUR QUADRANTS. KEPT CLEAN AND DRY. WILL CONTINUE TO MONITOR.
--- NOTE | 2016-12-22 06:38 | NUR ---
RN CLOSING NOTES RESTING COMFORTABLY IN BED, EYES CLOSE. NO SIGNIFICANT CHANGE OF CONDITION. REFUSED BED BATH. WILL ENDORSE TO AM SHIFT FOR CONTINUITY OF CARE.
--- NOTE | 2016-12-22 07:10 | NUR ---
RN INITIAL NOTES: REC'D PT AWAKE ON BED, A/O X 2 W/ PERIOD OF FORGETFULNESS, NOT IN ANY DISTRESS. HAS ALYSSA MIDLINE, SL, FLUSHED, PATENT & INTACT W/ NO S/SX OF INFECTION/INFILTRATION NOTED. HAS IRMA AV SHUNT W/ + THRILL & BRUIT. PROVIDED COMFORT & SAFETY MEASURES. BED KEPT LOW & IN LOCKED POS. CALL LIGHT PLACED W/IN REACH. DAUGHTER AT BEDSIDE. WILL CONTINUE TO MONITOR AND ATTEND NEEDS.
[2016-12-22 07:31] LABS: HEMATOCRIT 31 % (33-45); HEMOGLOBIN 9.4 g/dL (11.5-14.8); MEAN CORPUSCULAR HEMOGLOBIN 28 PG (26.0-33.0); MEAN CORPUSCULAR HGB CONC 31 g/dl (31.0-36.0); MEAN CORPUSCULAR VOLUME 92 fL (82-100); PLATELET COUNT (AUTO) 289 /CMM (150-450); RDW COEFFICIENT OF VARIATION 18.4 (11.5-15.0); RED BLOOD CELL COUNT(AUTO) 3.33 MIL/uL (4.0-5.2); WHITE BLOOD COUNT (AUTO) 18.8 K/uL (4.3-11.0)
[2016-12-22 07:48] LABS: CARBON DIOXIDE 35 mmol/L (21-32); CHLORIDE 97 mmol/L (98-107); GLUCOSE 75 mg/dL (74-106); POTASSIUM 4.2 mmol/L (3.5-5.1); SODIUM SERUM 132 mmol/L (136-145); UREA NITROGEN, BLOOD 25 mg/dL (7-18)
[2016-12-22 08:00] VITALS: BP 148/42
[2016-12-22 08:38] LABS: BAND % (MANUAL) 2 % (0.0-5.0); EOSINOPHILS % (MANUAL) 1 % (0-4); LYMPHOCYTES % (MANUAL) 5 % (16-48); MONOCYTES % (MANUAL) 3 % (0-11.0); NEUTROPHILS % (MANUAL) 89 (42-76)
--- NOTE | 2016-12-22 10:27 | NUR ---
CLARIFIED WITH DR. CARLIN ABOUT PLEURAL FLUIDS,PER MD ONLY FOR THERAPEUTIC PURPOSES AND D/C LABS WORK UP.
[2016-12-22 16:00] VITALS: BP 140/40
--- NOTE | 2016-12-22 17:00 | NUR ---
RN NOTES: PT DAUGHTER CONCERNED THAT PT SEEMS TO SLEEP MORE TODAY AND PT IS VERBALIZING THAT SHE FELT SHE IS OVERMEDICATED. ASSESSED PT CONDITION, PT ABLE TO RESPOND TO VERBAL & TACTILE STIMULI, NOT IN ANY FORM OF DISTRESS, VS WNL. DTR MADE AWARE WHILE SHE WAS AWAY, PT HAD PHYSICAL THERAPY THIS AFTERNOON. WILL CONTINUE TO MONITOR.
--- NOTE | 2016-12-22 18:50 | NUR ---
RN CLOSING NOTES: NO ACUTE CHANGES W/IN SHIFT. PT TOLERATED 2-3LPM/NC, NO SOB. ALYSSA MIDLINE AND IRMA AV SHUNT KEPT IN PLACE AND INTACT W/ NO S/SX OF INFECTION/ INFILTRATION NOTED. HAD 2X LOOSE BM TODAY BUT PER DR. CHASE CONTINUE GIVING ROUTINE LAXATIVES (SENNA AND COLACE) TO THE PT AND MIRALAX PRN. DTR IS AWARE. KEPT WELL RESTED. NEEDS ATTENDED. BED KEPT LOW & IN LOCKED POS. CALL LIGHT W/IN REACH. WILL ENDORSE TO PM RN FOR ANDRA. Addendum: 12/22/16 at 1953 by NAY TRACY RN ADDENDUM: 5 AND 6 PM GIVEN TO THE PT PER DTR REQUEST, MEDICATIONS WERE CRUSHED W/ APPLE SAUCE. PER DTR TO DC OSCAL MEDICATION. ENDORSED TO PM RN.
--- NOTE | 2016-12-22 19:35 | NUR ---
MS RN INITIAL NOTE PT RECEIVED RESTING IN BED WITH DAUGHTERS AT BEDSIDE. A/O X 2 WITH EPISODES OF LETHARGY AND CONFUSION. ON 2L OF O2 VIA NASAL CANNULA AND SATURATING WELL. BREATHING IS REGULAR, EVEN AND UNLABORED. NO C/O PAIN OR DISCOMFORT AT THIS TIME. IV SITE ALYSSA MIDLINE IN PLACE, CLEAN, PATENT AND FLUSHING WELL. R AV SHUNT THRILL AND BRUIT FELT AND AUSCULTATED. BED IN LOWEST POSITION AND LOCKED IN PLACE. CALL LIGHT WITHIN REACH. WILL CONTINUE TO MONITOR.
[2016-12-22 20:00] VITALS: BP 137/53
[2016-12-23 04:00] VITALS: BP_SYST 120; BP_SYST 136; BP_DIAS 71; BP_DIAS 80
--- NOTE | 2016-12-23 06:58 | NUR ---
MS RN CLOSING NOTE PT REMAINED STABLE DURING SHIFT. DAUGHTER AT BEDSIDE. KEPT PT CLEAN AND DRY. NO ACUTE DISTRESS NOTED. REPOSITIONED Q2H. ASSISTED PT TO BEDPAN. IV SITE AND AV FISTULA IN PLACE. ALL SAFETY MEASURES IN PLACE. CALL LIGHT WITHIN REACH. WILL ENDORSE TO NEXT SHIFT FOR CONTINUITY OF CARE.
--- NOTE | 2016-12-23 07:10 | NUR ---
RN INITIAL NOTES: REC'D PT ASLEEP ON BED, AROUSABLE BY VERBAL AND TACTILE STIMULI, A/O X 2 W/ PERIODS OF FORGETFULNESS, NOT IN ANY DISTRESS. HAS ALYSSA MIDLINE, SL, FLUSHED, PATENT & INTACT W/ NO S/SX OF INFECTION/INFILTRATION NOTED. HAS IRMA AV SHUNT W/ + THRILL & BRUIT. PROVIDED COMFORT & SAFETY MEASURES. BED KEPT LOW & IN LOCKED POS. CALL LIGHT PLACED W/IN REACH. DAUGHTER AT BEDSIDE. PT'S OWN MEDICATION (SINEMET AND MIRAPEX) SENT TO PHARMACY PER DTR'S REQUEST, REC'D BY ISABEL. WILL CONTINUE TO MONITOR AND ATTEND NEEDS.
[2016-12-23 07:30] LABS: EOSINOPHILS # (AUTO) 0.2 /CMM (0.0-0.7); EOSINOPHILS % (AUTO) 1.3 % (0.0-6.0); HEMATOCRIT 29 % (33-45); HEMOGLOBIN 8.9 g/dL (11.5-14.8); LYMPHOCYTES # (AUTO) 1.3 /CMM (0.8-4.8); LYMPHOCYTES % (AUTO) 7.9 % (20.0-44.0); MEAN CORPUSCULAR HEMOGLOBIN 28 PG (26.0-33.0); MEAN CORPUSCULAR HGB CONC 30 g/dl (31.0-36.0); MEAN CORPUSCULAR VOLUME 92 fL (82-100); MONOCYTES # (AUTO) 0.6 /CMM (0.1-1.30); MONOCYTES % (AUTO) 3.5 % (2.0-12.0); NEUTROPHILS % (AUTO) 87.3 % (43.0-81.0); PLATELET COUNT (AUTO) 265 /CMM (150-450); RDW COEFFICIENT OF VARIATION 18.1 (11.5-15.0); RED BLOOD CELL COUNT(AUTO) 3.19 MIL/uL (4.0-5.2)
[2016-12-23 07:48] LABS: CALCIUM, SERUM 10.3 mg/dL (8.5-10.1); CARBON DIOXIDE 34 mmol/L (21-32); CHLORIDE 97 mmol/L (98-107); CREATININE 3.3 mg/dL (0.6-1.3); GLUCOSE 70 mg/dL (74-106); POTASSIUM 4.7 mmol/L (3.5-5.1); SODIUM SERUM 133 mmol/L (136-145); UREA NITROGEN, BLOOD 29 mg/dL (7-18)
[2016-12-23 08:00] VITALS: BP 130/55
--- NOTE | 2016-12-23 09:00 | NUR ---
RN NOTES: PT IS SCHED TO HAVE HD TODAY. WILL HOLD ANTI-HTN MEDS AT THIS TIME. WILL CONTINUE TO MONITOR. Addendum: 12/23/16 at 1459 by NAY TRACY RN ADDENDUM: CALLED MEGAN THOMPSON RN AND VERIFIED W/ HIM IF PT IS SCHED TO BE DIALYZE TODAY, HE SAID IT WILL BE TOMORROW PER 'S ORDER. PT & DTR MADE AWARE.
--- NOTE | 2016-12-23 10:00 | NUR ---
RN NOTES: PER DTR, DC PLACEMENT OF CHOICE - ROEL KENNEY. ZI HERNÁNDEZ MADE AWARE. ALSO APPLICATION SECURITY ENGINEER MADE AWARE THAT PT'S DTR WANTED TO DC OSCAL MEDICATION. PER BETTY, HE WILL REVIEW PT'S CHART.
[2016-12-23 16:00] VITALS: BP 136/71
--- NOTE | 2016-12-23 17:02 | NUR ---
RN NOTES: BLADDER SCAN DONE >227. AFTER DOING SCAN, PT PEED USING BEDPAN. PT'S DAUGHTER AT BEDSIDE. WILL CONTINUE TO MONITOR.
--- NOTE | 2016-12-23 18:57 | NUR ---
RN CLOSING NOTES: NO ACUTE CHANGES W/IN SHIFT. PT TOLERATED 2LPM/NC, NO SOB. ALYSSA MIDLINE KEPT PATENT & INTACT W/ NO S/SX OF INFECTION/ INFILTRATION NOTED. IRMA AVF KEPT IN PLACE. KEPT WELL RESTED. NEEDS ATTENDED. BED KEPT LOW & IN LOCKED POS. CALL LIGHT W/IN REACH. WILL ENDORSE TO PM RN FOR ANDRA.
--- NOTE | 2016-12-23 19:30 | NUR ---
RN NOTES: -RECEIVED AWAKE LYING COMFORTABLY IN BED, DAUGHTER PRESENT AT BED SIDE,ON 02 AT 2L/MIN VIA NC,RESPONDING TO VERBAL COMMAND,A/OX1,WITH PERIODS OF FORGETFULNESS,NO SIGN OF RESPIRATORY DEPRESSION OR SOB,FALL,SAFETY AND ASPIRATION PRECAUTION OBSERVE, CALL LIGHT WITHIN EASY REACH,ALYSSA MID LINE INTACT,NO SIGN OF INFILTRATION NOTED,IRMA AV SHUNT(+ FOR THRILL AND BRUIT),CALLS AND NEEDS ATTENDED.
[2016-12-23 20:00] VITALS: BP 141/63
--- NOTE | 2016-12-23 22:00 | NUR ---
RN NOTES: PER DAUGHTER SHE WAS ABLE TO PASS URINE IN THE BED FIGUEROA, ABDOMEN CHECK, SOFT AND NOT DISTENDED, ABLE TO PEE AROUND 30-40CC OF URINE,INSTRUCT DAUGHTER TO CALL IF PATIENT HAS ANY PAIN OR DISCOMFORT, AT THIS TIME.SHE IS COMFORTABLY LYING IN BED.WILL CONTINUE TO MONITOR, CALL LIGHT WITHIN EASY REACH.
[2016-12-24 04:00] VITALS: BP 121/77
--- NOTE | 2016-12-24 04:28 | NUR ---
RN NOTES: DAUGHTER INSTRUCT NOT TO WAKE UP HER MOTHER FOR MORNING CARE.SHE REQUEST IT TO BE DONE IN THE MORNING ONLY HER MOTHER IS IN DEEP SLEEP, NO SIGN OF RESPIRATORY DISTRESS NOTED.KEPT ON CLOSE WATCH.
[2016-12-24 07:16] LABS: BASOPHILS % (AUTO) 0.1 % (0.0-2.0); HEMATOCRIT 29 % (33-45); LYMPHOCYTES # (AUTO) 1.1 /CMM (0.8-4.8); LYMPHOCYTES % (AUTO) 7.2 % (20.0-44.0); MEAN CORPUSCULAR HEMOGLOBIN 28 PG (26.0-33.0); MEAN CORPUSCULAR HGB CONC 31 g/dl (31.0-36.0); MEAN CORPUSCULAR VOLUME 91 fL (82-100); MONOCYTES # (AUTO) 0.4 /CMM (0.1-1.30); MONOCYTES % (AUTO) 2.9 % (2.0-12.0); NEUTROPHILS # (AUTO) 13.4 /CMM (1.8-8.9); NEUTROPHILS % (AUTO) 89.8 % (43.0-81.0); PLATELET COUNT (AUTO) 292 /CMM (150-450); RDW COEFFICIENT OF VARIATION 17.6 (11.5-15.0); RED BLOOD CELL COUNT(AUTO) 3.19 MIL/uL (4.0-5.2); WHITE BLOOD COUNT (AUTO) 14.9 K/uL (4.3-11.0)
[2016-12-24 07:30] LABS: CALCIUM, SERUM 10.4 mg/dL (8.5-10.1); CARBON DIOXIDE 32 mmol/L (21-32); CHLORIDE 96 mmol/L (98-107); CREATININE 3.4 mg/dL (0.6-1.3); GLUCOSE 67 mg/dL (74-106); SODIUM SERUM 131 mmol/L (136-145); UREA NITROGEN, BLOOD 34 mg/dL (7-18)
--- NOTE | 2016-12-24 07:30 | NUR ---
RN NOTES: MORNING CARE DONE, CLEAN AND CHANGE,Z GUARD APPLIED ON [place] AREA,BLADDER SCAN DONE =257,ENCOURAGE TO PEE, ENDORSED FOR CONTINUITY OF CARE, FOR HD TODAY.
[2016-12-24 07:33] LABS: VANCOMYCIN,RANDOM 24 ug/ml (18-26)
[2016-12-24 07:37] LABS: ALANINE AMINOTRANSFERASE < 6 U/L (12-78); ALBUMIN 1.9 g/dL (3.4-5.0); ALKALINE PHOSPHATASE 109 U/L (46-116); ASPARTATE AMINOTRANSFERASE 22 U/L (15-37); BILIRUBIN,TOTAL 0.4 mg/dL (0.2-1.0); MAGNESIUM 2.3 mg/dL (1.8-2.4); PHOSPHORUS 4.8 mg/dL (2.5-4.9); TOTAL PROTEIN, SERUM 5.3 g/dL (6.4-8.2)
[2016-12-24 08:00] VITALS: BP 159/53
--- NOTE | 2016-12-24 08:04 | NUR ---
RN MS NOTES PATIENT ALERT AND ORIENTED X2-3, DAUGHTERS AT BEDSIDE, NO DISTRESS NOTED, BREATHING EVEN AND UNLABORED ON O2 AT 2LPM VIA NC, DENIES PAIN OR DISCOMFORT, ALYSSA MIDLINE PATENT AND FLUSHES WELL, NEEDS ATTENDED AND MET, CALL LIGHT WITHIN REACH, SAFETY MEASURES IN PLACED, BLADDER SCAN DONE BY REQUISITION APPROVER NURSE WHICH SHOWS 256 RESIDUAL, OFFERED BEDPAN AND WILL CONTINUE TO MONITOR.
--- NOTE | 2016-12-24 08:37 | NUR ---
RN MS NOTES BP MEDS HELD REQUESTED BY FAMILY DUE TO PATIENT'S HEMODIALYSIS SCHEDULE TODAY.
--- NOTE | 2016-12-24 09:30 | NUR ---
RN MS NOTES PATIENT'S HEMODIALYSIS STARTED, PER INFORMATION CLERK CASHIER, HOLD AM MEDICATIONS FOR NOW TIL AFTER DIALYSIS.
--- NOTE | 2016-12-24 14:00 | NUR ---
RN MS NOTES PATIENT ALERT AND ORIENTED, NO DISTRESS NOTED, FAMILY AT BEDSIDE, HEMODIALYSIS COMPLETED WITH 1500CC OUTPUT, PATIENT TRANSFERRED TO ROOM 201, REPORT GIVEN TO FANY KYLE. BETTY PINON MADE AWARE OF TRANSFER AND BLADDER SCAN RESULT OF 256 THIS AM, PER PRIMER INSERTING MACHINE OPERATOR, INSERT A STRAIGHT CATHETER, ENDORSED TO FANY KYLE.
--- NOTE | 2016-12-24 14:09 | NUR ---
MS ROPE CUTTER NOTE RECEIVED PATIENT FROM [place]. RECEIVED REPORT FROM SAROJ BRODERICK. PATIENT IS ALERT AND ORIENTED x2-3. NO PAIN AT THIS TIME. NO SOB OR DISTRESS NOTED. ON 2L/MIN OF OXYGEN VIA NASAL CANNULA. ON 2 GM SODIUM DIET. ASPIRATION PRECAUTIONS IN PLACE. HAS EDEMA. RIGHT UPPER AV FISTULA, LEFT CHESTWALL PACEMAKER, AND LEFT UPPER MIDLINE INTACT. DISCHARGE PLANNING TOMORROW 12/25. IF URINE OUTPUT MORE THAN 300 ML, USE BLADDER SCANNER AND STRAIGHT CATH PER MD ORDER. HAD DIALYSIS TODAY, 1.5L OUTPUT. WILL CONTINUE TO MONITOR PATIENT THROUGHOUT SHIFT
[2016-12-24 16:00] VITALS: BP 130/48
--- NOTE | 2016-12-24 18:40 | NUR ---
MS RN CLOSING NOTE PATIENT IS ALERT AND ORIENTED x2-3. NO PAIN AT THIS TIME. NO SOB OR DISTRESS NOTED. CALL LIGHT WITHIN REACH AT ALL TIMES. SAFETY MEASURES IMPLEMENTED. ALL DUE MEDICATIONS GIVEN ORDERED. FAMILY AT BEDSIDE. BLADDER SCANNING TO BE DONE EVERY 4 HOURS, IF MORE THAN 300 ML OF URINE OUTPUT MUST BE STRAIGHT CATH PER ZI ALVARADO. HAS RIGHT AV FISTULA NO BP ON RIGHT ARM OR BILATERAL LEGS. HAD DIALYSIS TODAY-1.5 OUTPUT. ABLE TO COMMUNICATE NEEDS. LEFT UPPER MIDLINE INTACT AND PATENT NO FLUIDS AT THIS TIME. WILL ENDORSE TO SUPERVISOR FIBER LOCKING FOR ANDRA
--- NOTE | 2016-12-24 19:30 | NUR ---
MS RN NOTE RECEIVED PATIENT AWAKE, ALERT AND ORIENTED X2. NO RESPIRATORY DISTRESS NOTED. RECEIVING 2L OXYGEN VIA NASAL CANNULA. NO S/S OF PAIN OR DISCOMFORT. DAUGHTERS AT BEDSIDE. IV SITE INTACT, WITH FLUIDS RUNNING ORDERED. BED LOCKED AND IN LOWEST POSITION. SIDE RAILS UP, CALL LIGHT WITHIN REACH. WILL CONTINUE TO MONITOR.
[2016-12-24 20:00] VITALS: BP 134/73
[2016-12-24 22:00] VITALS: BP 134/73
[2016-12-25] VITALS (29 sets, daily range): BP systolic 96–174; BP diastolic 17–96
--- NOTE | 2016-12-25 | NUR ---
MS RN NOTE BLADDER SCAN DONE. 120ML OF URINE SCANNED.
--- NOTE | 2016-12-25 05:00 | NUR ---
MS RN NOTE BLADDER SCANNED. 128ML OF URINE SCANNED.
[2016-12-25 06:35] LABS: EOSINOPHILS % (AUTO) 0.1 % (0.0-6.0); HEMATOCRIT 31 % (33-45); HEMOGLOBIN 9.4 g/dL (11.5-14.8); LYMPHOCYTES # (AUTO) 0.9 /CMM (0.8-4.8); MEAN CORPUSCULAR HEMOGLOBIN 28 PG (26.0-33.0); MEAN CORPUSCULAR HGB CONC 30 g/dl (31.0-36.0); MEAN CORPUSCULAR VOLUME 92 fL (82-100); MONOCYTES # (AUTO) 0.5 /CMM (0.1-1.30); MONOCYTES % (AUTO) 3.7 % (2.0-12.0); NEUTROPHILS # (AUTO) 11.3 /CMM (1.8-8.9); NEUTROPHILS % (AUTO) 89.2 % (43.0-81.0); PLATELET COUNT (AUTO) 314 /CMM (150-450); RDW COEFFICIENT OF VARIATION 17.6 (11.5-15.0); RED BLOOD CELL COUNT(AUTO) 3.38 MIL/uL (4.0-5.2); WHITE BLOOD COUNT (AUTO) 12.7 K/uL (4.3-11.0)
[2016-12-25 06:40] LABS: CALCIUM, SERUM 9.9 mg/dL (8.5-10.1); CARBON DIOXIDE 29 mmol/L (21-32); CHLORIDE 98 mmol/L (98-107); CREATININE 2.9 mg/dL (0.6-1.3); GLUCOSE 64 mg/dL (74-106); POTASSIUM 4.6 mmol/L (3.5-5.1); SODIUM SERUM 133 mmol/L (136-145); UREA NITROGEN, BLOOD 28 mg/dL (7-18)
--- NOTE | 2016-12-25 06:55 | NUR ---
MS RN NOTE PATIENT STABLE. DAUGHTERS AT BEDSIDE. NO RESPIRATORY DISTRESS OR SOB NOTED. NO S/S OF PAIN OR DISCOMFORT. ALL NEEDS MET AND ATTENDED TO. WILL ENDORSE TO DAY SHIFT FOR ANDRA.
--- NOTE | 2016-12-25 07:18 | NUR ---
RN OPEN NOTES RECEIVED REPORT FROM DINKEY ENGINE FIRER NURSE. WILL CONTINUE TO MONITOR AND ASSESS PATIENT THROUGH OUT MY SHIFT
--- NOTE | 2016-12-25 09:30 | NUR ---
DR CARLIN AT BEDSIDE. NEW ORDERS RECEIVED (ABG AND CHEST XRAY STAT)
[2016-12-25 10:13] LABS: ABG PCO2 72.3 mmHg (35.0-45.0); ABG PH 7.217 (7.350-7.450); ABG PO2 73.1 mmHg (75.0-100.0); AaDO2 55.9 mmHg; COHb 0.6 % (0.5-1.5); MetHb 0.3 % (0.0-1.5); O2Hb 91.2 % (94.0-97.0); SITE, ABG Left Radial; VENT MODE, BG Nasal Cannula
--- NOTE | 2016-12-25 10:20 | NUR ---
PATIENT TRANSFERRED TO ICU, ROOM [address] CARLIN ORDER
--- NOTE | 2016-12-25 10:20 | NUR ---
REPORT GAVE TO DIETARY ASSISTANT AT BEDSIDE
--- NOTE | 2016-12-25 10:30 | NUR ---
ICU/RN: Pt received from Med/surg via bed requiring BiPAP per Dr Bhagat's orders. Pt noted to be A&OX2, pale, lethargic, skin cool to touch, breathing with accessory muscle use. Lung sounds diminished with rhochi throughout. ALYSSA Midline flushed and patent; R UA AV shunt + bruit and thrill. L CW pacemaker noted, V-pacing at 60 bpm. Abd distention noted, pt denies constipation. Bilat lower extremiy +4 noted, off loaded. Daughters at bedside; updated and educated on POC and unit. Verbalized understanding. Alarm sounds audible. Will cont to monitor pt.
--- NOTE | 2016-12-25 10:45 | NUR ---
PT PLACED ON BIPAP PER DR. CARLIN UPON TRANSFER TO ICU. MEPILEX PLACED UNDER MASK, NO SKIN BREAKDOWN NOTED. BIPAP ALARMS CHECKED, AUDIBLE. BIPAP IN RED OUTLET.
--- NOTE | 2016-12-25 10:50 | NUR ---
ICU/RN: Dr Nichols at bedside; updated on pt status, abn labs, abd distention and edema. Per MD, will schedule for HD later today.
--- NOTE | 2016-12-25 12:08 | NUR ---
ICU/RN: PO meds held dt pt lethargy; high risk for aspiration. Remains on bipap, tolerating current settings. No distress noted.
[2016-12-25 12:50] LABS: ABG BASE EXCESS 1.4 mmol/L; ABG OXYGEN SATURATION 91.9 % (92.0-98.5); ABG PCO2 61.3 mmHg (35.0-45.0); ABG PH 7.288 (7.350-7.450); ABG PO2 71.1 mmHg (75.0-100.0); AaDO2 70.8 mmHg; COHb 0.3 % (0.5-1.5); O2Hb 91.6 % (94.0-97.0); SITE, ABG Left Radial; VENT MODE, BG BIPAP ST15/5 12
--- NOTE | 2016-12-25 14:50 | NUR ---
ICU/RN: Jagdeep Mclean, HOOKER LASTER at bedside, lengthy dw family regarding POC. Family in agreement with plan. No need for FC, NGT insertion at this time, per HOOKER LASTER, "Leave her be, do not insert anything at this time." Continue current monitoring. Pt comfortable, VSS.
--- NOTE | 2016-12-25 15:00 | NUR ---
ICU/RN: Pt off HD; 2500cc out. Hemodynamically stable. Family at bedside and updated.
--- NOTE | 2016-12-25 16:00 | NUR ---
ICU/RN: Wound care and hygienic care rendered. Pt has weeping edema on L upper extremity. No BM noted. Kept clean and dry. Daughters at bedside.
--- NOTE | 2016-12-25 17:00 | NUR ---
ICU/RN: Pt in bed, awake and alert, communicating needs via notepad. Pt with periods of restlessness and agitation, attempting to pull out mask. Family at bedside providing reassurance to pt. Family planning to meet and discuss code status.
--- NOTE | 2016-12-25 17:51 | NUR ---
ICU/RN: Spoke with Jagdeep Mclean NP. Pt is restless, anxious and agitated, states that she wants BiPAP off and "I want to be done with it." Family is currently discussing code status and probable comfort care, is currently waiting for pt's son to arrive prior to making final decision along with pt. New order for Ativan noted and carried out. Family updated on POC. Will administer as ordered and reassess effectiveness.
--- NOTE | 2016-12-25 18:30 | NUR ---
ICU/RN: Pt coughing out thick clear secretions; suctioned airway for clearance. Oral care rendered.
--- NOTE | 2016-12-25 19:12 | NUR ---
ICU/RN: Pt resting in bed, calm, comfortable, no distress noted, VS WNL. ALYSSA ML patent and intact. Bilat heels offloaded. Endorsed to pm rn for ANDRA.
--- NOTE | 2016-12-25 19:38 | NUR ---
OPERATING ROOM REGISTERED NURSE NOTES RECEIVED PT IN BED, ASLEEP. A/OX 2-3. ON BIPAP AT ORDERED SETTINGS, VU WELL. TELE READS SR WITH BBB AND V-PACING WITH LCW PACEMAKER. IRMA AV SHUNT PRESENT WITH PRESSURE DRESSINGS IN PLACE. ALYSSA MIDLINE, SALINE LOCKED. HOB ELEVATED, SIDE RAILS X3. CALL LIGHT WITHIN REACH. ALL NEEDS MET. TURNED AND REPOSITIONED. Addendum: 12/26/16 at 0633 by ELIZABETH DURANT RN CORRECTION: PACEMAKER IS A-PACING.
[2016-12-26] VITALS (50 sets, daily range): BP systolic 84–162; BP diastolic 28–92
--- NOTE | 2016-12-26 01:00 | NUR ---
MANAGER OF EXHIBITIONS AND COLLECTIONS NOTES PT IS ASLEEP. DAUGHTER AT BEDSIDE. TURNED AND REPOSITIONED, NO S/S OF PAIN OR DISTRESS.
[2016-12-26 04:50] LABS: BASOPHILS # (AUTO) 0.1 /CMM (0.0-0.2); BASOPHILS % (AUTO) 0.6 % (0.0-2.0); EOSINOPHILS % (AUTO) 0.1 % (0.0-6.0); HEMATOCRIT 28 % (33-45); HEMOGLOBIN 8.4 g/dL (11.5-14.8); LYMPHOCYTES % (AUTO) 8.5 % (20.0-44.0); MEAN CORPUSCULAR HEMOGLOBIN 28 PG (26.0-33.0); MEAN CORPUSCULAR HGB CONC 30 g/dl (31.0-36.0); MEAN CORPUSCULAR VOLUME 91 fL (82-100); MONOCYTES # (AUTO) 0.5 /CMM (0.1-1.30); MONOCYTES % (AUTO) 4.4 % (2.0-12.0); NEUTROPHILS # (AUTO) 9.7 /CMM (1.8-8.9); NEUTROPHILS % (AUTO) 86.4 % (43.0-81.0); PLATELET COUNT (AUTO) 329 /CMM (150-450); RDW COEFFICIENT OF VARIATION 17.9 (11.5-15.0); RED BLOOD CELL COUNT(AUTO) 3.05 MIL/uL (4.0-5.2); WHITE BLOOD COUNT (AUTO) 11.3 K/uL (4.3-11.0)
[2016-12-26 05:17] LABS: CALCIUM, SERUM 9.9 mg/dL (8.5-10.1); CARBON DIOXIDE 30 mmol/L (21-32); CHLORIDE 101 mmol/L (98-107); CREATININE 2.5 mg/dL (0.6-1.3); GLUCOSE 54 mg/dL (74-106); MAGNESIUM 2.2 mg/dL (1.8-2.4); PHOSPHORUS 4.2 mg/dL (2.5-4.9); POTASSIUM 4.6 mmol/L (3.5-5.1); SODIUM SERUM 135 mmol/L (136-145); UREA NITROGEN, BLOOD 26 mg/dL (7-18)
--- NOTE | 2016-12-26 05:40 | NUR ---
BLAST FURNACE TENDER NOTES PT IS ASLEEP. DAUGHTER AT BEDSIDE. PT TURNED AND REPOSITIONED. OFFLOADED EXTREMITIES. NO BOWEL MOVEMENT OR URINE OUTPUT.
--- NOTE | 2016-12-26 06:35 | NUR ---
CASH APPLICATIONS SPECIALIST NOTES PT IS MILDLY AGITATED. ONE FAMILY MEMBER REQUESTED ATIVAN PRN BUT ANOTHER FAMILY MEMBER IS REFUSING IN ORDER FOR THE PT TO BE ALERT DURING THE DAY. FAMILY IS DISCUSSING THE ISSUE AT THIS TIME AT THE BEDSIDE.
--- NOTE | 2016-12-26 06:58 | NUR ---
SYSTEMS REQUIREMENTS PLANNER NOTES FAMILY HAS NOT REACHED A DECISION ABOUT THE ATIVAN PRN DOSE. CURRENTLY CHANGE OF SHIFT. WASTED THE DRAWN UP 0.5 MG ATIVAN DOSE, WITNESSED BY NANCY KYLE.
--- NOTE | 2016-12-26 07:35 | NUR ---
RN NOTES RECEIVED PT RESTING IN BED, CURRENTLY ON BIPAP AT PRESCRIBED SETTINGS, TOLERATING WELL. DAUGHTER AT BEDSIDE, PT IS AWAKE, ALERT TO NAME AND PLACE. TELE READS SR WITH BBB AND V-PACING WITH LEFT CW PACEMAKER. IRMA AV SHUNT PRESENT WITH PRESSURE DRESSINGS IN PLACE. ALYSSA MIDLINE, ONGOING IV NS TKO. HOB ELEVATED, SIDE RAILS X3. REPOSITIONED FOR COMFORT, SAFETY MAINTAINED, CALL LIGHT WITHIN REACH. WILL CONT TO MONITOR.
[2016-12-26 10:12] LABS: ABG BASE EXCESS 1.6 mmol/L; ABG OXYGEN SATURATION 90.8 % (92.0-98.5); ABG PCO2 65.2 mmHg (35.0-45.0); ABG PH 7.272 (7.350-7.450); ABG PO2 65.2 mmHg (75.0-100.0); AaDO2 57.5 mmHg; COHb 0.6 % (0.5-1.5); MetHb 0.3 % (0.0-1.5); SITE, ABG Left Radial; VENT MODE, BG N/C 2 L/MIN
--- NOTE | 2016-12-26 10:30 | NUR ---
RN NOTES REPORTED TO DR CARLIN ABG RESULT, PER MONITOR PT ON O2@2LPM VIA NC, THEN CHECK ABG @1300. ALL ORDERS READ BACK NOTED AND CARRIED OUT. LUCILLE HENDERSON AWARE.
--- NOTE | 2016-12-26 11:08 | NUR ---
RN NOTES DR NEWMAN AT BEDSIDE, PT WAS SEEN AND EVALUATED. DAUGHTERS AND SON AT BEDSIDE, PLAN OF CARE DISCUSSED WITH PT AND FAMILY MEMBERS. FAMILY MEMBERS ABLE TO EXPRESS THEIR CONCERNS.
--- NOTE | 2016-12-26 15:27 | NUR ---
RN NOTES MILANA FROM [employer] AT BEDSIDE TO CHECK PATIENTS PACEMAKER. HD STILL ONGOING. PER JODIE ADKINS AFTER HD.
--- NOTE | 2016-12-26 15:31 | NUR ---
RN NOTES HD COMPLETED, 1.3L OUT. BP 113/69 HR 71 BPM AT THIS TIME
[2016-12-26 16:47] LABS: ABG BASE EXCESS 3.6 mmol/L; ABG OXYGEN SATURATION 92.9 % (92.0-98.5); ABG PCO2 51.4 mmHg (35.0-45.0); ABG PH 7.376 (7.350-7.450); ABG PO2 74.7 mmHg (75.0-100.0); AaDO2 64.3 mmHg; COHb 0.4 % (0.5-1.5); MetHb 0.1 % (0.0-1.5); O2Hb 92.4 % (94.0-97.0); SITE, ABG Left Radial; VENT MODE, BG nasal cannula
--- NOTE | 2016-12-26 16:52 | NUR ---
RN NOTES DR CARLIN NOTIFIED OF ABG RESULT, PER DR CARLIN OKAY TO KEEP PT ON O2@2LPM VIA NC, THEN BIPAP AT NIGHT. FAMILY NOTIFIED AT BEDSIDE
--- NOTE | 2016-12-26 18:38 | NUR ---
RN NOTES PT RESTING IN BED, HOB ELEVATED. AWAKE ALERT ORIENTED TO NAME, PLACE, AND IMMEDIATE SURROUNDINGS. FAMILY AT BEDSIDE. ON O2@2LPM VIA NC, TOLERATING WELL SATING 99% AT THIS TIME. VS CONTINUOUSLY MONITORED. DENIES PAIN AT THIS TIME. KEPT PT CLEAN AND COMFORTABLE, ALL DUE MEDS GIVEN. NEEDS ATTENDED AND MET, WILL ENDORSE TO [facility] NURSE FOR CONTINUITY OF CARE.
--- NOTE | 2016-12-26 19:58 | NUR ---
FULL ROLL INSPECTOR. INITIAL ASSESSMENT. RECEIVED THE PT REST ON THE BED. AWAKE, ALERT. OXYGEN 2L VIA NASAL CANNULA. SAT 98%. AWARD CLERK SHOWING CONTROLLED AFIB. IV RT UPPER ARM AV SHUNT.LT UPPER ARM MID LINE. HOB ELEVATED. FC PATENT TURN AND REPOSITION Q2H. WILL CONTINUE TO MONITOR VITALS.
[2016-12-27] VITALS (43 sets, daily range): BP systolic 81–183; BP diastolic 25–104
--- NOTE | 2016-12-27 03:52 | NUR ---
MOUNTED POLICE. AM CARE, ORAL CARE, BED BATH GIVEN. LINEN CHANGED, REMAINING SAME BIPAP SETTING TOLERATED WELL. SAT 98%NO ACUTE DISTRESS NOTED. OVEN EQUIPMENT REPAIRER SHOWING NSR. IV LT UPPER ARM MID LINE. DRESSING INTACT. HOB ELEVATED. TURN AND REPOSITION Q2H. WILL CONTINUE TO MONITOR VITALS.
[2016-12-27 04:58] LABS: BASOPHILS % (AUTO) 0.4 % (0.0-2.0); HEMATOCRIT 29 % (33-45); HEMOGLOBIN 8.8 g/dL (11.5-14.8); LYMPHOCYTES # (AUTO) 1.1 /CMM (0.8-4.8); MEAN CORPUSCULAR HEMOGLOBIN 28 PG (26.0-33.0); MEAN CORPUSCULAR HGB CONC 30 g/dl (31.0-36.0); MEAN CORPUSCULAR VOLUME 91 fL (82-100); MONOCYTES # (AUTO) 0.6 /CMM (0.1-1.30); MONOCYTES % (AUTO) 5.5 % (2.0-12.0); NEUTROPHILS # (AUTO) 9.6 /CMM (1.8-8.9); NEUTROPHILS % (AUTO) 84.1 % (43.0-81.0); PLATELET COUNT (AUTO) 282 /CMM (150-450); RDW COEFFICIENT OF VARIATION 17.5 (11.5-15.0); WHITE BLOOD COUNT (AUTO) 11.4 K/uL (4.3-11.0)
[2016-12-27 05:12] LABS: CALCIUM, SERUM 9.9 mg/dL (8.5-10.1); CARBON DIOXIDE 32 mmol/L (21-32); CHLORIDE 102 mmol/L (98-107); CREATININE 2.2 mg/dL (0.6-1.3); GLUCOSE 75 mg/dL (74-106); MAGNESIUM 1.9 mg/dL (1.8-2.4); PHOSPHORUS 3.4 mg/dL (2.5-4.9); POTASSIUM 4.1 mmol/L (3.5-5.1); SODIUM SERUM 138 mmol/L (136-145); UREA NITROGEN, BLOOD 20 mg/dL (7-18)
--- NOTE | 2016-12-27 08:00 | NUR ---
ICU/RN INITIAL NOTES,AM RECEIVED REPORT FROM NIGHT NURSE. PT RESTING IN BED, PLACED ON NASAL CANULA FROM BIPAP, TOLERATING WELL, NO ACUTE DISTRESS NOTED, ABG SCHEDULED FOR 1000. PT IS CONFUSED, FOLLOWS COMMANDS. DAUGHTER AT BEDSIDE. PT ON TELE, PACEMAKER IN PLACE. SWALLOW EVAL ORDERED. NPO EXCEPT MEDS AT THIS TIME. POSSIBLE HD AGAIN TODAY. ALL NEEDS WILL BE MET, SAFETY MEASURES TAKEN, BED IN LOW POSITION, SIDE RAILS UP, CALL LIGHT WITHIN REACH.
[2016-12-27 10:15] LABS: ABG BASE EXCESS 5.2 mmol/L; ABG OXYGEN SATURATION 93.7 % (92.0-98.5); ABG PCO2 59.9 mmHg (35.0-45.0); ABG PH 7.345 (7.350-7.450); ABG PO2 77.9 mmHg (75.0-100.0); AaDO2 51.1 mmHg; COHb 0.3 % (0.5-1.5); O2Hb 93.4 % (94.0-97.0); SITE, ABG Left Radial; VENT MODE, BG NASAL CANNULA
--- NOTE | 2016-12-27 13:00 | NUR ---
ICU/RN: HEMODIALYSIS STARTED, VSS. WILL CONTINUE TO MONITOR. BP MEDICATIONS HELD.
--- NOTE | 2016-12-27 17:30 | NUR ---
ICU/RN: PT BATHE, LINENS CHANGED, TURNED AND REPOSITIONED. FAMILY AT BEDSIDE. EDUCATED AND ANSWERED QUESTIONS
--- NOTE | 2016-12-27 18:41 | NUR ---
ICU/RN ENDING NOTES,AM REPORT WILL BE ENDORSED TO NIGHT NURSE FOR CONTINUATION OF CARE. PT ON NASAL CANULA, NO ACUTE DISTRESS NOTED. SINUS ON TELE CONVERTS TO A PACING AT TIMES. FAMILY AT BEDSIDE. HD DONE TODAY, 1 LITER OUT. PT NOW ON MECHANICAL SOFT DIET, TOLERATING WELL. ALL NEEDS MET, SAFETY MEASURES TAKEN, BED IN LOW POSITION, SIDE RAILS UP, CALL LIGHT WITHIN REACH. WILL CONTINUE CARE
--- NOTE | 2016-12-27 22:00 | NUR ---
GYPSUM CALCINER -REC'D PT. CONFUSED,FIDGETY, ATTEMPTING TO TAKE OFF ICU WIRING. PT. WAS JUST PLACED ON BIPAP. I:E=20/5, RATE OF 12 & 30%. LUNG WATSON ARE CLEAR ON AUSC. PT'S DAUGHTER IS AT PT'S BS, ASSISTING W/ADL'S. HEART MONITOR SHOWS A PACING/60-70'S. VSS. LOW GRADE TEMPS=99'S. LUE MIDLINE/HL'D & RUE AV FISTULA. GOOD BRUIT & GOOD THRILL. CONT. POC.
[2016-12-28] VITALS (14 sets, daily range): BP systolic 46–154; BP diastolic 27–84
--- NOTE | 2016-12-28 03:17 | NUR ---
PT IS CONFUSED AND PULLS/REMOVES BIPAP. DAUGHTER IS IN ROOM AND DIDN'T WANT THE BIPAP TO BE ON FOR THE REMAINDER OF THE NIGHT.
[2016-12-28 04:49] LABS: EOSINOPHILS # (AUTO) 0.1 /CMM (0.0-0.7); EOSINOPHILS % (AUTO) 0.8 % (0.0-6.0); HEMATOCRIT 30 % (33-45); LYMPHOCYTES # (AUTO) 1.5 /CMM (0.8-4.8); LYMPHOCYTES % (AUTO) 12.8 % (20.0-44.0); MEAN CORPUSCULAR HEMOGLOBIN 28 PG (26.0-33.0); MEAN CORPUSCULAR HGB CONC 30 g/dl (31.0-36.0); MEAN CORPUSCULAR VOLUME 91 fL (82-100); MONOCYTES # (AUTO) 0.8 /CMM (0.1-1.30); NEUTROPHILS # (AUTO) 9.3 /CMM (1.8-8.9); NEUTROPHILS % (AUTO) 79.4 % (43.0-81.0); PLATELET COUNT (AUTO) 267 /CMM (150-450); RDW COEFFICIENT OF VARIATION 17.4 (11.5-15.0); RED BLOOD CELL COUNT(AUTO) 3.26 MIL/uL (4.0-5.2); WHITE BLOOD COUNT (AUTO) 11.7 K/uL (4.3-11.0)
[2016-12-28 04:56] LABS: CALCIUM, SERUM 9.7 mg/dL (8.5-10.1); CREATININE 1.9 mg/dL (0.6-1.3); GLUCOSE 90 mg/dL (74-106); UREA NITROGEN, BLOOD 16 mg/dL (7-18)
[2016-12-28 05:01] LABS: CARBON DIOXIDE 33 mmol/L (21-32); CHLORIDE 102 mmol/L (98-107); SODIUM SERUM 141 mmol/L (136-145)
--- NOTE | 2016-12-28 06:30 | NUR ---
PROCUREMENT CLERK - PT. DID WELL ON O2/2L/NC FOR THE LAST COUPLE HRS. NO S/S OF DISCOMFORT/DISTRESS. PT. DID REFUSE TO KEEP ON SBP. VSS. PT'S DAUGHTER REMAINS AT BS & REQUESTED THAT STAFF KEEP PT. OFF OF BIPAP FOR LAST REMAINDER OF NIGHT. PT. WAS ADM. A PARTIAL BEDBATH AROUND 2300. LINENS CHANGED & ERIC/ORAL CARE ADM. PT. VOIDED IN BEDPAN X 2, BUT RECEIVES DIALYSIS ALSO. AM LABS DRAWN & SENT. PENDING RESULTS. CONT. POC.
--- NOTE | 2016-12-28 07:05 | NUR ---
RN NOTES RECEIVED PT ON BED, A/Ox1, CONFUSED , ON O2 2L N/C , RESPIRATION EVEN AND UNLABORED ,O2 SA 98%.NO SOB NOTED, SUPPORTIVE FAMILY AT THE BEDSIDE, ON TELE SR WITH BBB ,HR IN 60'S . R UPPER ARM AV SHUNT WITH + TRILL AND BRUIT , L UPPER ARM MIDLINE SITE CDI, SR UP x3, CALL LIGHT WITHIN EASY REACH, CONTINUE TO MONITOR PT CLOSELY AND NOTIFY MD FOR ANY SIGNIFICANT CHANGES
[2016-12-28 09:30] LABS: ABG BASE EXCESS 8.7 mmol/L; ABG OXYGEN SATURATION 93.5 % (92.0-98.5); ABG PCO2 65.8 mmHg (35.0-45.0); ABG PH 7.354 (7.350-7.450); ABG PO2 77.9 mmHg (75.0-100.0); AaDO2 44.1 mmHg; COHb 0.3 % (0.5-1.5); MetHb 0.3 % (0.0-1.5); O2Hb 92.9 % (94.0-97.0); SITE, ABG Left Radial; VENT MODE, BG NC AT 2LPM
--- NOTE | 2016-12-28 11:25 | NUR ---
RN NOTES PT STABLE, VSS STABLE , SUPPORTIVE FAMILY AT THE BEDSIDE , NURSING JET AIRCRAFT SERVICER NOTIFIED REGARDING JO[facility] STATUS. CONTINUE TO MONITOR .
--- NOTE | 2016-12-28 12:35 | NUR ---
RN NOTES PT TRANSFERRED TO ROOM 101 IN STABLE CONDITION , REPORT GIVEN TO LEANDER KYLE IN [place] FOR ANDRA,
--- NOTE | 2016-12-28 19:15 | NUR ---
pt in stable condition.no s/s of distress ,all m.d orders noted.safety precautions in place.bed in low and lock position
--- NOTE | 2016-12-28 21:21 | NUR ---
RN:TD; PT RECEIVED IN BED ALERT TO SELF AND ABLE TO FOLLOW COMMANDS. PER PREVIOUS SHIFT PT DOES HAVE PERIODS OF CONFUSION. PT CALM AND COMFORTABLE AT THIS TIME. PT DAUGHTER AT THE BEDSIDE AND VERY INVOLVED IN PT CARE. PT HAS LEFT UPPER ARM MIDLINE THAT IS INTACT. PT TO BE PLACED ON NOCTURNAL BIPAP PER PULMONARY MD ORDERS. PT CURRENTLY TOLERATING BIPAP. NO ACUTE DISTRESS NOTED. VS. FALL/ASPIRATION PRECAUTIONS IN PLACE. WILL CONTINUE TO MONITOR CLOSELY AND PERFORM Q1H ROUNDING.
[2016-12-29] VITALS (8 sets, daily range): BP systolic 134–182; BP diastolic 50–68
--- NOTE | 2016-12-29 00:29 | NUR ---
RN:TD: PT RESTING IN BED. ALL NEEDS ATTENDED TO. PT TOLERATING CURRENT BIPAP SETTINGS. DAUGHTER REMAINS AT THE BEDSIDE. PT REPOSITIONED FOR COMFORT. BP ELEVATED 180'S PER PREVIOUS SHIFT DR DAMON AWARE OF ELEVATED BP AND DOES NOT WANT TO BE CONTACTED UNLESS THE BP BECOMES EXTREMELY ELEVATED (>220). WILL ENDORSE TO ONCOMING SHIFT. Addendum: 12/29/16 at 0033 by TIEN SOLO RN ERROR BP PARAMETERS FOR DIFFERENT PATIENT. Addendum: 12/29/16 at 0045 by TIEN SOLO RN BP RETAKEN 168/68
--- NOTE | 2016-12-29 02:24 | NUR ---
RN:TD: PT TAKEN OFF BIPAP PER FAMILY REQUEST. PT TOLERATING 2 L NC. PER PULMONARY MD OK TO REMOVE BIPAP AFTER PATIENT WEARS THE MASK FOR 5 HOURS. ORDERS FOLLOWED. O2 SAT WNL.
--- NOTE | 2016-12-29 03:50 | NUR ---
RN:TD: PT DAUGHTER VERY INSISTENT THAT SHE PROVIDES ALL ADL'S AND PT CLEANING. OFFERED MULTIPLE TIMES TO ASSIST WITH CLEANING BUT DAUGHTER DECLINES. PT CONTINUES TO BE RESTING IN BED WITH OUT DISTRESS.
--- NOTE | 2016-12-29 06:16 | NUR ---
RN:TD: OFFERED BED BATH AND LINEN CHANGE TO PT. PT AND HER DAUGHTER DECLINED. NO CHANGES IN CONDITION. OTHER DAUGHTER AT THE BEDSIDE AND UPDATED REGARDING POC.
[2016-12-29 06:39] LABS: BASOPHILS % (AUTO) 0.2 % (0.0-2.0); HEMATOCRIT 29 % (33-45); HEMOGLOBIN 9.1 g/dL (11.5-14.8); LYMPHOCYTES # (AUTO) 1.7 /CMM (0.8-4.8); MEAN CORPUSCULAR HEMOGLOBIN 28 PG (26.0-33.0); MEAN CORPUSCULAR HGB CONC 31 g/dl (31.0-36.0); MEAN CORPUSCULAR VOLUME 91 fL (82-100); MONOCYTES # (AUTO) 0.7 /CMM (0.1-1.30); MONOCYTES % (AUTO) 5.9 % (2.0-12.0); NEUTROPHILS # (AUTO) 9.1 /CMM (1.8-8.9); NEUTROPHILS % (AUTO) 78.9 % (43.0-81.0); PLATELET COUNT (AUTO) 261 /CMM (150-450); RDW COEFFICIENT OF VARIATION 17.7 (11.5-15.0); WHITE BLOOD COUNT (AUTO) 11.5 K/uL (4.3-11.0)
[2016-12-29 06:58] LABS: CALCIUM, SERUM 10.8 mg/dL (8.5-10.1); CARBON DIOXIDE 33 mmol/L (21-32); CHLORIDE 100 mmol/L (98-107); CREATININE 2.4 mg/dL (0.6-1.3); GLUCOSE 78 mg/dL (74-106); POTASSIUM 4.3 mmol/L (3.5-5.1); SODIUM SERUM 137 mmol/L (136-145); UREA NITROGEN, BLOOD 25 mg/dL (7-18)
--- NOTE | 2016-12-29 08:00 | NUR ---
TD/RN AM SHIFT INITIAL NOTES RECEIVED PT AWAKE SITTING IN BED WITH PT'S DAUGHTERS AT BEDSIDE. NO ACUTE CHANGE OF CONDITION OR FEVER NOTED. PT A/O X ALERT X 2, DENIES PAIN. ON 2L O2 VIA N/C SATURATING @ 95%, LUNG SOUNDS CLEAR. ON TELE MONITORING WITH SINUS RHYTHM, AV PACING, HR 66. IV SITE FLUSHED, PATENT WITH POSITIVE BLOOD RETURN, NO S/S OF INFECTION, SL. AV SHUNT ON RIGHT UPPER ARM (+) OF THRILL & BRUIT. PT IS COMFORTABLE AT THIS TIME. SCHEDULED AM MEDS TO BE GIVEN EXCEPT FOR DIOVAN, WILL CONFIRM WITH HD NURSE IF PT WILL HAVE DIALYSIS TREATMENT TODAY. CL WITHIN REACHED AND SAFETY MAINTAINED. ON GOING MONITORING.
--- NOTE | 2016-12-29 08:30 | NUR ---
TD/RN ROUNDS - DR. MOJICA PT SEEN & EXAMINED BY DR. MOJICA. NO NEW ORDERS RECEIVED AT THIS TIME. MONITORING CONTINUED.
--- NOTE | 2016-12-29 12:00 | NUR ---
TELE1/RN NOON ROUNDS PT WITH FAMILY MEMBERS AT BEDSIDE. NO ACUTE CHANGE OF CONDITION. PT IS COMFORTABLE. MONITORING CONTINUED.
--- NOTE | 2016-12-29 15:13 | NUR ---
TELE1/RN PHYSICAL THERAPY EVALUATION PT BEING BEEN BY PHYSICAL THERAPIST FOR EVALUATION. MONITORING. Addendum: 12/29/16 at 1537 by MARC BALDERAS RN ADDENDUM: PER PHYSICAL THERAPIST EVALUATION PT NEEDS TOTAL/FULL ASSIST IN MOBILITY. NOTED.
--- NOTE | 2016-12-29 15:33 | NUR ---
TELE1/RN ROUNDS - Aris LAY. PT SEEN & EXAMINED BY DR. VALENCIA, NO NEW ORDERS RECEIVED AT THIS TIME. PER DR. VALENCIA, PT WILL HAVE DIALYSIS TREATMENT TOMORROW. MONITORING.
--- NOTE | 2016-12-29 16:00 | NUR ---
TELE1/RN AFTERNOON ROUNDS PT SEEN & EXAMINED BY DR. NEWMAN. NO NEW ORDERS RECEIVED. NO ACUTE CHANGE OF CONDITION. PT IS COMFORTABLE, PT'S DAUGHTERS AT BEDSIDE. ON GOING MONITORING.
--- NOTE | 2016-12-29 19:21 | NUR ---
TELE1/RN AM SHIFT END NOTES NO ACUTE CHANGE OF CONDITION NOTED DURING THE SHIFT. ALL NEEDS MET. PT ENDORSED TO PM NURSE TO CONTINUE CARE. CL WITHIN REACHED AND SAFETY MAINTAINED.
[2016-12-30] VITALS: BP 154/44
[2016-12-30 04:00] VITALS: BP 153/50
[2016-12-30 05:46] LABS: BASOPHILS % (AUTO) 0.4 % (0.0-2.0); EOSINOPHILS % (AUTO) 0.2 % (0.0-6.0); HEMATOCRIT 29 % (33-45); HEMOGLOBIN 8.8 g/dL (11.5-14.8); LYMPHOCYTES # (AUTO) 1.7 /CMM (0.8-4.8); LYMPHOCYTES % (AUTO) 15.4 % (20.0-44.0); MEAN CORPUSCULAR HEMOGLOBIN 27 PG (26.0-33.0); MEAN CORPUSCULAR HGB CONC 30 g/dl (31.0-36.0); MEAN CORPUSCULAR VOLUME 91 fL (82-100); MONOCYTES # (AUTO) 0.5 /CMM (0.1-1.30); MONOCYTES % (AUTO) 4.4 % (2.0-12.0); NEUTROPHILS # (AUTO) 8.7 /CMM (1.8-8.9); NEUTROPHILS % (AUTO) 79.6 % (43.0-81.0); PLATELET COUNT (AUTO) 260 /CMM (150-450); RDW COEFFICIENT OF VARIATION 17.4 (11.5-15.0); RED BLOOD CELL COUNT(AUTO) 3.21 MIL/uL (4.0-5.2); WHITE BLOOD COUNT (AUTO) 10.9 K/uL (4.3-11.0)
[2016-12-30 05:58] LABS: CALCIUM, SERUM 10.9 mg/dL (8.5-10.1); CARBON DIOXIDE 32 mmol/L (21-32); CHLORIDE 99 mmol/L (98-107); CREATININE 2.9 mg/dL (0.6-1.3); GLUCOSE 86 mg/dL (74-106); POTASSIUM 4.6 mmol/L (3.5-5.1); SODIUM SERUM 135 mmol/L (136-145); UREA NITROGEN, BLOOD 34 mg/dL (7-18)
--- NOTE | 2016-12-30 07:18 | NUR ---
END OF SHIFT SUMMERY: PT IS A&O X 1. ON REVIEW TRAINER,A-PACING. ON 2L NC, SATURATING WELL. NO COMPLAINS OF PAIN OR DISTRESS NOTED. WILL ENDORSE PT TO AM SHIFT NURSE TO FOLLOW UP AND CONTINUE THE CARE.
[2016-12-30 08:00] VITALS: BP 171/52
--- NOTE | 2016-12-30 08:00 | NUR ---
TELE1/RN AM SHIFT INITIAL NOTES RECEIVED PT ASLEEP IN BED, AROUSEABLE, WITH PT'S DAUGHTERS AT BEDSIDE. NO ACUTE CHANGE OF CONDITION OR RESPIRATORY DISTRESS NOTED. PT ALERT FOLLOWS COMMAND, DENIES ANY SYMPTOMS. ON 2L O2 VIA N/C SATURATING @ 97%, LUNG SOUNDS CLEAR. ON TELE MONITORING WITH SINUS RHYTHM, V PACING, HR 61. IV SITE FLUSHED, PATENT WITH POSITIVE BLOOD RETURN, NO S/S OF INFECTION, SL. AV SHUNT ON RIGHT UPPER ARM (+) OF THRILL & BRUIT. PT IS COMFORTABLE AT THIS TIME. SCHEDULED AM MEDS TO BE GIVEN EXCEPT FOR DIOVAN, WILL HAVE DIALYSIS TREATMENT TODAY. CL WITHIN REACHED AND SAFETY MAINTAINED. ON GOING MONITORING.
[2016-12-30 09:25] LABS: ABG BASE EXCESS 6.5 mmol/L; ABG OXYGEN SATURATION 94.1 % (92.0-98.5); ABG PCO2 73.9 mmHg (35.0-45.0); ABG PH 7.289 (7.350-7.450); ABG PO2 85.3 mmHg (75.0-100.0); AaDO2 27.1 mmHg; COHb 0.3 % (0.5-1.5); MetHb 0.1 % (0.0-1.5); O2Hb 93.7 % (94.0-97.0); SITE, ABG Left Radial; VENT MODE, BG nasal cannula
--- NOTE | 2016-12-30 09:44 | NUR ---
PT PLACED ON BIPAP DUE TO ABG RESULTS. SPOKE WITH DR. MOJICA, PATIENT TO REMAIN IN [place] UNTIL DR. MONTALVO ASSESS'S PATIENT AND DETERMINES ICU OR REMAIN JO[place] STATUS.
--- NOTE | 2016-12-30 09:45 | NUR ---
TELE1/RN BACK ON BI-PAP ABG RESULTS, PCO2 73.9 DR. MOJICA AND CHARGE NURSE AWARE. PT PLACED BACK TO BI-PAP AT THIS TIME FOR 1-2 HOURS AND WILL RE-CHECK ABG. PT IS ASYMPTOMATIC. MONITORING CONTINUED.
--- NOTE | 2016-12-30 11:15 | NUR ---
TELE1/BENZENE WASHER TX PT STARTED ON DIALYSIS TX. BP 159/59, HR 62. ON GOING MONITORING.
--- NOTE | 2016-12-30 11:22 | NUR ---
TELE1/RN BACK ON N/C PT PLACED BACK ON 2L O2 VIA N/C. MONITORING.
[2016-12-30 12:00] VITALS: BP 145/59
--- NOTE | 2016-12-30 14:00 | NUR ---
TELE1/RN HD TX COMPETED PT TOLERATED HD TX, REMOVED 2L OF FLUID. BP 125/65, HR 66. MONITORING.
[2016-12-30 16:00] VITALS: BP 125/44
--- NOTE | 2016-12-30 19:26 | NUR ---
TELE1/RN AM SHIFT END NOTES ALL NEEDS MET. PT ON 1.5L O2 VIA N/C SATURATING WELL. ENDORSED TO PM NURSE TO CONTINUE CARE. CL WITHIN REACHED AND SAFETY MAINTAINED.
[2016-12-30 20:00] VITALS: BP 179/49
[2016-12-31] VITALS (9 sets, daily range): BP systolic 138–209; BP diastolic 46–85
[2016-12-31 08:00] LABS: BASOPHILS % (AUTO) 0.1 % (0.0-2.0); EOSINOPHILS % (AUTO) 0.1 % (0.0-6.0); HEMATOCRIT 30 % (33-45); HEMOGLOBIN 9.3 g/dL (11.5-14.8); LYMPHOCYTES # (AUTO) 1.7 /CMM (0.8-4.8); LYMPHOCYTES % (AUTO) 15.9 % (20.0-44.0); MEAN CORPUSCULAR HEMOGLOBIN 28 PG (26.0-33.0); MEAN CORPUSCULAR HGB CONC 31 g/dl (31.0-36.0); MEAN CORPUSCULAR VOLUME 90 fL (82-100); MONOCYTES # (AUTO) 0.4 /CMM (0.1-1.30); MONOCYTES % (AUTO) 3.6 % (2.0-12.0); NEUTROPHILS # (AUTO) 8.4 /CMM (1.8-8.9); NEUTROPHILS % (AUTO) 80.3 % (43.0-81.0); PLATELET COUNT (AUTO) 280 /CMM (150-450); RDW COEFFICIENT OF VARIATION 17.4 (11.5-15.0); RED BLOOD CELL COUNT(AUTO) 3.32 MIL/uL (4.0-5.2); WHITE BLOOD COUNT (AUTO) 10.4 K/uL (4.3-11.0)
[2016-12-31 08:21] LABS: CALCIUM, SERUM 10.5 mg/dL (8.5-10.1); CARBON DIOXIDE 33 mmol/L (21-32); CHLORIDE 99 mmol/L (98-107); CREATININE 2.4 mg/dL (0.6-1.3); GLUCOSE 84 mg/dL (74-106); POTASSIUM 4.6 mmol/L (3.5-5.1); SODIUM SERUM 136 mmol/L (136-145); UREA NITROGEN, BLOOD 29 mg/dL (7-18)
--- NOTE | 2016-12-31 09:00 | NUR ---
PT DAUGHTER @ BEDSIDE BP 149/51. DAUGHTER ASKING TO WAIT ON GIVING BP MEDICATIONS DUE TO POSSIBLE HD TODAY. EXPLAINED PT HAD HD YESTERDAY AND PT BECOMES HYPOTENSIVE. DAUGHTER ASKING IF WE CAN WAIT ON GIVEN MEDICATIONS. SHE EXPLAINED PT CERTIFIED CREDIT COUNSELOR WANT BP TO BE IN 150'S.
--- NOTE | 2016-12-31 10:00 | NUR ---
PT FAMILY @ BEDSIDE REFUSED KVNG B/P
--- NOTE | 2016-12-31 20:00 | NUR ---
PT RECEIVED FROM AM SHIFT, AWAKE ,ALERT , ORIENTED X1-2, DAUGHTERS AT BEDSIDE. ON NASAL CANULA, NO S/S OF SOB, SBP ELEVATED, 217. NO S/SOF HYPERTENSION NOTED. PER FAMILY, FAMILY REFUSED MORNING BP MEDICATION DIOVAN. WILL CONTINUE TO MONITOR, ACCREDITATION SPECIALIST PAIKULDIP.
--- NOTE | 2016-12-31 21:00 | NUR ---
SPOKE TO MD BUTTERFIELD, AWARE OF ELEVATED SBP 217, MD WITH NEW ORDER TO GIVE MISSING MORNING DOSE OF DIOVAN. FAMILY MADE AWARE AND AGREEN. MEDICATION ADMINISTERED
--- NOTE | 2016-12-31 23:50 | NUR ---
RN NOTES 5240 DR. GREER ZAPATA CALLED BACK ; UPDATED HIM ON CURRENT BP OF 177/61 AFTER GIVING THE DIOVAN AT 2042. NO NEW ORDERS MADE. STATED "THAT'S OK". DUNCAN, PRIMARY RN NOTIFIED
[2017-01-01] VITALS (7 sets, daily range): BP systolic 138–177; BP diastolic 49–72
--- NOTE | 2017-01-01 | NUR ---
SBP STILL 170'S, SPOKE TO MD BUTTERFIELD, WITH NO NEW ORDER AT THIS TIME, WILL CONTINUE MONITORING. FAMILY MADE AWARE
[2017-01-01 06:20] LABS: BASOPHILS % (AUTO) 0.3 % (0.0-2.0); EOSINOPHILS # (AUTO) 0.2 /CMM (0.0-0.7); EOSINOPHILS % (AUTO) 1.7 % (0.0-6.0); HEMATOCRIT 28 % (33-45); HEMOGLOBIN 8.9 g/dL (11.5-14.8); LYMPHOCYTES # (AUTO) 1.8 /CMM (0.8-4.8); MEAN CORPUSCULAR HEMOGLOBIN 28 PG (26.0-33.0); MEAN CORPUSCULAR HGB CONC 31 g/dl (31.0-36.0); MEAN CORPUSCULAR VOLUME 89 fL (82-100); MONOCYTES # (AUTO) 0.5 /CMM (0.1-1.30); NEUTROPHILS # (AUTO) 7.4 /CMM (1.8-8.9); PLATELET COUNT (AUTO) 240 /CMM (150-450); RDW COEFFICIENT OF VARIATION 17.4 (11.5-15.0); RED BLOOD CELL COUNT(AUTO) 3.19 MIL/uL (4.0-5.2); WHITE BLOOD COUNT (AUTO) 9.8 K/uL (4.3-11.0)
--- NOTE | 2017-01-01 08:00 | NUR ---
RN NOTE PATIENT FOUND TO HAVE A STAGE 2 PRESSURE INJURY. PHOTO IN CHART SHOWS PATIENT HAD A DEVELOPED PRESSURE INJURY ON ADMISSION, REASSEMBLING AT LEAST STAGE ONE. NEW PHOTO HAS BEEN TAKEN TODAY, REVIEWED WITH WOUND CARE NURSE LYNNE. NEW ORDERS INPUT. PLAN TO CHANGE PATENT'S BED TO ISOFLEX TODAY AND PROVIDE WOUND CARE ORDERED. PLAN TO CONTINUE TO REPOSITION PATIENT Q2H. DISCUSSED PLAN OF CARE WITH PATIENT FAMILY AT BED SIDE. THEY VERBALIZED UNDERSTANDING, EXPRESSED APPRECIATION FOR NURSING CARE.
[2017-01-01 09:52] LABS: CARBON DIOXIDE 32 mmol/L (21-32); CHLORIDE 98 mmol/L (98-107); CREATININE 2.9 mg/dL (0.6-1.3); GLUCOSE 77 mg/dL (74-106); POTASSIUM 4.7 mmol/L (3.5-5.1); SODIUM SERUM 133 mmol/L (136-145); UREA NITROGEN, BLOOD 40 mg/dL (7-18)
--- NOTE | 2017-01-01 10:09 | NUR ---
WOUND CARE CONSULT: PT PRESENTS WITH SKIN TEAR TO RT UPPER ARM AND STAGE 2 ULCER TO SACRUM WITH SURROUNDING RASH. ADMISSION PHOTO SHOWS SACRAL SCARRING AND REDNESS. PT IS INCONTINENT. ALL SKIN PROTECTION MEASURES AND WOUND RECOMMENDATIONS DISCUSSED WITH NURSING STAFF. LIYAH ISOFLEX LOW AIRLOSS BED TO BE PLACED. WILL SEE PRN. ANTONIO IN AGREEMENT WITH PLAN OF CARE. Addendum: 01/01/17 at 1011 by LYNNE ASHBY WNDNU Amended: Links added.
--- NOTE | 2017-01-01 12:35 | NUR ---
RN NOTE NOTIFIED DR. NEWMAN THAT PATIENT'S BLOOD PRESSURE WAS 205/73 ON FIRST TRY AND 175/68 ON SECOND RECORDING. PATIENT DENIES CHEST PAIN AND DENIES DISCOMFORT, NO NEW ABNORMALITIES SEEN ON TELEMETRY READING. PATIENT IS DUE TO RECEIVE DIALYSIS AT THIS TIME. SAID TO ASSESS VITAL SIGNS AFTER DIALYSIS AND NOTIFY HIM OF READING/ CHANGES. WILL CONTINUE TO MONITOR.
--- NOTE | 2017-01-01 14:45 | NUR ---
RN NOTE SEEN AND EXAMINED BY DR. NEWMAN AND DR. Anthony VALENCIA. S/P DIALYSIS BP 138/68, HR 80. MD'S AWARE. PATIENT HAS 3/10 CHEST PAIN RELIEVED BY SLOW DEEP BREATHING ON 2 L O2, SAT 90%. DR. NEWMAN GAVE VERBAL ORDER FOR LACTULOSE 10G 1 TIME PO AND 1 MINERAL ENEMA R/T CONSTIPATION > 1 WEEK.
--- NOTE | 2017-01-01 19:01 | NUR ---
RN NOTE ON ISOFLEX BED AT THIS TIME. PATIENT DENIES PAIN. BP CONTROLLED. BREATHING EVEN AND UNLABORED. VERBALIZING NEEDS. ALL DUE MEDS ADMINISTERED. DR. NEWMAN GAVE TO TO D/C OSCAL PER FAMILY REQUEST. NO BM THIS SHIFT. WILL INFORM NIGHT NURSE. CALL LIGHT IN REACH. FAMILY AT BED SIDE 24HR.
--- NOTE | 2017-01-01 19:30 | NUR ---
RN OPENING NOTES: RECEIVED PATIENT ON BED AWAKE ALOX3 AND VERBALLY RESPONSIVE. ABLE TO MAKE NEEDS KNOWN. ON O2 VIA NC AT 2LPM, NOT IN APPARENT DISTRESS. TOLERATED WELL. SINUS RHYTHM ON THE MONITOR WITH OCCASIONAL A-PACING AT 79 BPM AT THIS TIME. IV ACCESS ON ALYSSA MIDLINE PATENT AND INTACT, KEPT SL AT THIS TIME. IRMA AV SHUNT INTACT, NOTED WITH BRUITS AND THRILLS. FAMILY AT BEDSIDE VERBALIZED PATIENT HAS NOT HAD A BOWEL MOVEMENT FOR THE PAST "11 DAYS". ALSO PER FAMILY PATIENT ALREADY GOT AN ENEMA THIS AFTERNOON. TO MONITOR FOR BOWEL MOVEMENT. SAFETY MEASURES ENSURED. CALL LIGHT IN REACH. CONTINUOUSLY MONITORED PATIENT.
--- NOTE | 2017-01-01 22:35 | NUR ---
RN NOTES: GIVEN PATIENT LACTULOSE FOR COMPLAINTS OF CONSTIPATION AT 2225 AND THEN RECEIVED ORDER FROM DR CHASE FOR MAG CITRATE, AT THIS TIME PATIENT'S DAUGHTER DOES NOT WANT THE PATIENT TO GET THE MEDICATION SHE WOULD LIKE TO SEE THE EFFECT OF LACTULOSE FIRST AND IF STILL NOT EFFECTIVE WOULD AGREE TO TAKE THE MAG CITRATE. TO REASSESS PATIENT IN A FEW HOURS. TO HOLD MEDICATION FOR NOW.
[2017-01-02] VITALS: BP 167/61
[2017-01-02 04:00] VITALS: BP 142/47
[2017-01-02 06:38] LABS: BASOPHILS % (AUTO) 0.1 % (0.0-2.0); EOSINOPHILS % (AUTO) 0.1 % (0.0-6.0); HEMATOCRIT 28 % (33-45); HEMOGLOBIN 8.5 g/dL (11.5-14.8); LYMPHOCYTES # (AUTO) 1.6 /CMM (0.8-4.8); LYMPHOCYTES % (AUTO) 15.4 % (20.0-44.0); MEAN CORPUSCULAR HEMOGLOBIN 27 PG (26.0-33.0); MEAN CORPUSCULAR HGB CONC 31 g/dl (31.0-36.0); MEAN CORPUSCULAR VOLUME 90 fL (82-100); MONOCYTES # (AUTO) 0.6 /CMM (0.1-1.30); MONOCYTES % (AUTO) 5.7 % (2.0-12.0); NEUTROPHILS # (AUTO) 7.9 /CMM (1.8-8.9); NEUTROPHILS % (AUTO) 78.7 % (43.0-81.0); PLATELET COUNT (AUTO) 267 /CMM (150-450); RDW COEFFICIENT OF VARIATION 16.7 (11.5-15.0); WHITE BLOOD COUNT (AUTO) 10.1 K/uL (4.3-11.0)
[2017-01-02 06:45] LABS: CALCIUM, SERUM 10.9 mg/dL (8.5-10.1); CARBON DIOXIDE 35 mmol/L (21-32); CHLORIDE 99 mmol/L (98-107); CREATININE 2.4 mg/dL (0.6-1.3); GLUCOSE 84 mg/dL (74-106); POTASSIUM 3.9 mmol/L (3.5-5.1); SODIUM SERUM 138 mmol/L (136-145); UREA NITROGEN, BLOOD 29 mg/dL (7-18)
--- NOTE | 2017-01-02 06:45 | NUR ---
RN CLOSING NOTES: PATIENT AWAKE AND ALERT OFF BIPAP NOW; NOT IN APPARENT DISTRESS. STILL NO BM NOTED, PATIENT AND FAMILY AGREES TO TAKE MAG CITRATE. ABLE TO TOLERATE 120 CC OF IT FOR NOW BUT COMPLAINED OF NAUSEA. ZOFRAN GIVEN, PATIENT FELT LESS NAUSEOUS AFTER. INSTRUCTED TO WORK ON MAG CITRATE SLOWLY WITH FEW SIPS. SAFETY MEASURES ENSURED. AM LABS PENDING. CONTINUOUSLY MONITORED. ENDORSED TO AM SHIFT RN.
--- NOTE | 2017-01-02 07:33 | NUR ---
RN INITIAL NOTE PT A/OX3 DAUGHTER @ BEDSIDE. TELE SR A-PACING. 2 L NC NO C/O SOB. IV ALYSSA MIDLINE. PT CLEAN WARM AND DRY. ALL SAFETY MEASURES IN PLACE. WILL CONTINUE TO MONITOR.
[2017-01-02 08:00] VITALS: BP_SYST 142; BP_SYST 160; BP_DIAS 47; BP_DIAS 51
[2017-01-02 09:50] LABS: ABG BASE EXCESS 10.7 mmol/L; ABG OXYGEN SATURATION 89.2 % (92.0-98.5); ABG PCO2 53.6 mmHg (35.0-45.0); ABG PH 7.446 (7.350-7.450); ABG PO2 57.3 mmHg (75.0-100.0); AaDO2 35.5 mmHg; O2Hb 88.3 % (94.0-97.0); SITE, ABG Left Radial; VENT MODE, BG NASAL CANNULA
--- NOTE | 2017-01-02 09:52 | NUR ---
JODIE REPORTED TO WITH NO CHANGES.
[2017-01-02 12:00] VITALS: BP 160/59
[2017-01-02 16:00] VITALS: BP 178/63
[2017-01-02 16:47] VITALS: BP 178/67
--- NOTE | 2017-01-02 17:53 | NUR ---
TICKET MARKER NOTE PT DC TO [facility] WITH DAUGHTERS @ BEDSIDE. CALLED AND GAVE REPORT @ 1526 TO BLANCA KYLE. REPORT GIVEN TO EMT AND DC INSTRUCTIONS GIVEN WELL. RX PICKED UP FROM PHARMACY AND GIVEN TO DAUGHTER. DC MIDLINE. PT STABLE. PT CLEAN AND DRY. EXIT CARE DONE AND MEDICATION GIVEN. CALLED PHARMACY FOR ELIQUIS AND STATED THEY WILL BE BRINGING IT DONE. PT LEFT BEFORE MEDICATION COULD BE GIVEN. PT TRANSPORTED VIA AMBULANCE. PHOTS TAKEN AND PUT IN CHART. CATAPRES GIVEN PER CALEB ROQUE ORDER.
== END 2017-01-02 17:53 | DRG 871 ==
LOC: ER 13:48 → TELE-TD 16:07 → TELE1 12-15 12:30 → MEDSG1 12-21 12:59 → MEDSG2 12-24 14:05 → ICU 12-25 10:32 → TELE-TD 12-28 12:24 → TELE1 12-29 08:57
PROVIDERS: ADMIT Nurse Practitioner Acute Care; ATTEND Nurse Practitioner Acute Care
DX: A41.9 Sepsis, unspecified organism (principal); I50.33 Acute on chronic diastolic (congestive) heart failure; J69.0 Pneumonitis due to inhalation of food and vomit; J90 Pleural effusion, not elsewhere classified; G93.41 Metabolic encephalopathy; J96.02 Acute respiratory failure with hypercapnia; J96.01 Acute respiratory failure with hypoxia; E87.2 Acidosis; R53.2 Functional quadriplegia; N18.6 End stage renal disease; E44.0 Moderate protein-calorie malnutrition; D68.59 Other primary thrombophilia; I12.0 Hypertensive chronic kidney disease with stage 5 chronic kidney disease or end stage renal disease; I13.2 Hypertensive heart and chronic kidney disease with heart failure and with stage 5 chronic kidney disease, or end stage renal disease; E87.1 Hypo-osmolality and hyponatremia; I31.3 Pericardial effusion (noninflammatory); B37.49 Other urogenital candidiasis; R18.8 Other ascites; K56.7 Ileus, unspecified; D63.8 Anemia in other chronic diseases classified elsewhere; Z99.2 Dependence on renal dialysis; E87.5 Hyperkalemia; F02.80 Dementia in other diseases classified elsewhere, unspecified severity, without behavioral disturbance, psychotic disturbance, mood disturbance, and anxiety; G20 Parkinson's disease; K57.90 Diverticulosis of intestine, part unspecified, without perforation or abscess without bleeding; K59.00 Constipation, unspecified; I08.3 Combined rheumatic disorders of mitral, aortic and tricuspid valves; Z96.643 Presence of artificial hip joint, bilateral; Z87.891 Personal history of nicotine dependence; Z79.01 Long term (current) use of anticoagulants; M77.9 Enthesopathy, unspecified; I70.8 Atherosclerosis of other arteries; I70.0 Atherosclerosis of aorta; I48.91 Unspecified atrial fibrillation; E16.2 Hypoglycemia, unspecified
CPT/HCPCS: 36415; 36569; 36600; 71010-TC; 71250-TC; 74000-TC; 76942-TC; 80048-TC; 80053-TC; 80061-TC; 80076-TC; 80202-TC; 81000-TC; 82728-TC; 82803-TC; 82962-TC; 83540-TC; 83605-TC; 83735-TC; 83880; 84100-TC; 85025-TC; 85730-TC; 87040-TC; 87081-TC; 87086-TC; 90935-TC; 92611-TC; 93307-TC; 94660; 94762-TC; 94799-TC; 97110-TC; 97112-TC; 97530-TC; A4216; A4606; A6248; A6253; A6402; A6403; J0885; J1940; J1956; J2060; J2185; J2248; J2405; J2543; J3370; J7030; J7050; J7060; P9047; Z7610

== ENCOUNTER 2017-01-28 13:29 | Inpatient (IN) | payer MEDICARE, MEDICAID ==
[~2017-01-28] VITALS: Ht 165.1 cm; Wt 51.9 kg
[~2017-01-28 13:29] MED LIST: ACID1TAB12 PO; AMIO200T2 PO; BUME1TAB16 PO; BUME1TAB4 PO; CALC500T52 PO; CINA30TA PO; ONDA4TAB5 PO; PRAM0.253 PO; RASA1TAB4 PO; SEVE800T8 PO; UBIQ200C PO; VALS80TA2 PO
--- NOTE | 2017-01-28 13:44 | NUR ---
PT BIBRA FROM SNF TO ER BED 14. PER REPORT, AMS SINCE THIS AM. PER REPORT, PT USUALLY RESPONSIVE. PLACED ON MONITOR. STABLE VITALS. AWAITING MD CARR.
[2017-01-28] MEDS ORDERED: IV NS 0.9% 1,000 ML BAG IV ONE ×2 (14:00→17:00)
--- NOTE | 2017-01-28 14:00 | NUR ---
DR MEYERS AT BEDSIDE FOR EVAL.
[2017-01-28 14:18] LABS: ABG BASE EXCESS 9.9 mmol/L; ABG OXYGEN SATURATION 94.2 % (92.0-98.5); ABG PCO2 66.2 mmHg (35.0-45.0); ABG PH 7.361 (7.350-7.450); ABG PO2 77.3 mmHg (75.0-100.0); COHb 1.9 % (0.5-1.5); MetHb 0.3 % (0.0-1.5); O2Hb 92.1 % (94.0-97.0); SITE, ABG Left Radial; VENT MODE, BG NASAL CANNULA
--- NOTE | 2017-01-28 14:20 | NUR ---
IV LINE STARTED BLOOD DRAWN AND SENT TO LAB.
--- NOTE | 2017-01-28 14:29 | NUR ---
RADIOLOGY AT BEDSIDE FOR CHEST XRAY.
[2017-01-28 14:32] LABS: EOSINOPHILS # (AUTO) 0.2 /CMM (0.0-0.7); RDW COEFFICIENT OF VARIATION 19.3 (11.5-15.0); RED BLOOD CELL COUNT(AUTO) 2.41 MIL/uL (4.0-5.2)
--- NOTE | 2017-01-28 14:35 | NUR ---
PT TO RADIOLOGY FOR HEAD CT SCAN VIA [facility].
[2017-01-28 14:37] LABS: BASOPHILS # (AUTO) 0.1 /CMM (0.0-0.2); BASOPHILS % (AUTO) 1.4 % (0.0-2.0); EOSINOPHILS % (AUTO) 2.7 % (0.0-6.0); HEMATOCRIT 22 % (33-45); LYMPHOCYTES # (AUTO) 1.4 /CMM (0.8-4.8); LYMPHOCYTES % (AUTO) 19.3 % (20.0-44.0); MEAN CORPUSCULAR HEMOGLOBIN 29 PG (26.0-33.0); MEAN CORPUSCULAR HGB CONC 32 g/dl (31.0-36.0); MEAN CORPUSCULAR VOLUME 90 fL (82-100); MONOCYTES # (AUTO) 0.7 /CMM (0.1-1.30); MONOCYTES % (AUTO) 10.2 % (2.0-12.0); NEUTROPHILS # (AUTO) 4.7 /CMM (1.8-8.9); NEUTROPHILS % (AUTO) 66.4 % (43.0-81.0); PLATELET COUNT (AUTO) 344 /CMM (150-450); WHITE BLOOD COUNT (AUTO) 7.1 K/uL (4.3-11.0)
[2017-01-28 14:42] LABS: CALCIUM, SERUM 9.9 mg/dL (8.5-10.1); CARBON DIOXIDE 36 mmol/L (21-32); CHLORIDE 100 mmol/L (98-107); CREATININE 1.5 mg/dL (0.6-1.3); GLUCOSE 91 mg/dL (74-106); POTASSIUM 4.2 mmol/L (3.5-5.1); SODIUM SERUM 136 mmol/L (136-145); UREA NITROGEN, BLOOD 28 mg/dL (7-18)
[2017-01-28 14:44] LABS: INR 1.01 (0.87-1.13); PROTHROMBIN TIME 10.5 SECS (9.5-12.7)
[2017-01-28 14:52] LABS: ALANINE AMINOTRANSFERASE 6 U/L (12-78); ALBUMIN 2.3 g/dL (3.4-5.0); ALKALINE PHOSPHATASE 113 U/L (46-116); ASPARTATE AMINOTRANSFERASE 30 U/L (15-37); BILIRUBIN,DIRECT 0.1 mg/dL (0.0-0.2); BILIRUBIN,TOTAL 0.4 mg/dL (0.2-1.0); TOTAL PROTEIN, SERUM 6.5 g/dL (6.4-8.2)
[2017-01-28 16:03] LABS: TROPONIN I 0.049 ng/mL (0.00-0.056)
[2017-01-28 16:16] LABS: APPEARANCE,URINE Clear (CLEAR); BILIRUBIN,URINE Negative (NEGATIVE); BLOOD, URINE Trace-intact Ery/uL (NEGATIVE); COLOR,URINE Yellow (YELLOW); KETONES,URINE Negative (NEGATIVE); LEUKOCYTE ESTERASE ,URINE Small (NEGATIVE); NITRITE, URINE Negative (NEGATIVE); PH,URINE 8.5 (5.0-8.0); PROTEIN,URINE >=300 mg/dl (NEGATIVE); UGLUCOSE Negative (NEGATIVE); UROBILINOGEN,URINE 0.2 EU/dL (0.2)
[2017-01-28 16:24] LABS: BACTERIA,URINE Many /HPF (None Seen); RBC,URINE 0-2 /HPF (0-2); SQUAMOUS EPITHELIAL CELL,UR Few /HPF (None Seen); WBC,URINE TOO NUMEROUS TO COUN /HPF (0-3)
--- NOTE | 2017-01-28 16:37 | NUR ---
CALLED PANEL FOR PT ADMIT
[2017-01-28 16:54] LABS: THYROID STIMULATING HORMONE 1.362 uIU/mL (0.358-3.74)
[2017-01-28] MEDS ORDERED: CEFTRIAXONE 1GM BAG (ER ONLY) 50 ML IV ONE ×2 (17:00→17:05)
--- NOTE | 2017-01-28 17:15 | NUR ---
REPORT GIVEN TO SNEHA. PT AWAITING TRANSFER TO FLOOR.
--- NOTE | 2017-01-28 17:27 | NUR ---
Paged Dr. Barrientos for admission
--- NOTE | 2017-01-28 17:30 | NUR ---
FABRICATION DEPARTMENT SUPERVISOR NOTES RECEIVED PT FROM E.R. STAFF VIA TRISTA, AWAKE, NO SIGN OF PAIN, NOT IN DISTRESS, ACCOMPANIED BY DAUGHTERS, ASSISTED TO BED, MADE COMFORTABLE, ROOM SET UP ORIENTATION PROVIDED, FAMILY VERBALIZED UNDERSTANDING, REPOSITIONED FOR COMFORT, AWAITING ORDERS FROM DR. SMITH.
[2017-01-28 17:35] VITALS: BP 127/51
[2017-01-28] MEDS ORDERED: MAGNESIUM HYDROXIDE 30 ML UDC PO PRN (19:00)
[2017-01-28] MEDS ORDERED: ONDANSETRON HCL/PF 4 MG/2 ML VIAL IVP PRN (19:00)
[2017-01-28] MEDS ORDERED: MAG HYDROX/AL HYDROX/SIMETH 30 ML UDC PO PRN (19:00)
[2017-01-28] MEDS ORDERED: Z GUARD REMEDY 2 OZ OINT TP PRN (19:00)
[2017-01-28] MEDS ORDERED: HYDROCODONE/APAP 5/325MG 1 EACH TABLET PO PRN (19:00)
[2017-01-28] MEDS ORDERED: FUROSEMIDE 40 MG/4 ML VIAL IV ONE (19:00)
--- NOTE | 2017-01-28 19:00 | NUR ---
MOTOR BIKE MECHANIC NOTES PT IN BED, VERBALLY RESPONSIVE, NO COMPLAINT OF PAIN, NOT IN DISTRESS, KEPT COMFORTABLE IN BED, PM CARE RENDERED, BODY CHECK DONE, PT'S HISTORY PROVIDED BY PT'S DAUGHTER KAMILAH, AWAITING ADMISSION ORDERS FROM DR. SMITH.
[2017-01-28 20:00] VITALS: BP 136/55
[2017-01-28] MEDS ORDERED: FUROSEMIDE 40 MG/4 ML VIAL ONE (20:13)
[2017-01-28 20:45] VITALS: BP 136/55
[2017-01-28 21:01] LABS: AMYLASE 87 U/L (25-115); LIPASE 349 U/L (73-393)
[2017-01-28 21:14] LABS: CREATINE KINASE MB 0.7 ng/mL (0-3.6)
[2017-01-29] VITALS (14 sets, daily range): BP systolic 104–129; BP diastolic 41–62
--- NOTE | 2017-01-29 06:39 | NUR ---
END OF SHIFT SUMMERY: Pt is A&O X 2. forgetful sometimes. on 1 L NC saturating well. connected to telemetry monitor. A-pacing. denies pain. no episodes of N/V throughout shift. pt has a Hgb of 7. an order for one unit of blood transfusion is placed and delay occur to start the blood transfusion from the lab . charge nurse made aware. MRSA swab and stool sample obtained and sent to the lab. POC: lab studies , transfuse one unit of PRBC once it's ready. no acute distress noted, no questions or concerns at this time. Will endorse POC to the next shift nurse to continue the care.
[2017-01-29 06:40] LABS: BASOPHILS # (AUTO) 0.1 /CMM (0.0-0.2); EOSINOPHILS # (AUTO) 0.1 /CMM (0.0-0.7); HEMATOCRIT 22 % (33-45); LYMPHOCYTES # (AUTO) 1.3 /CMM (0.8-4.8); LYMPHOCYTES % (AUTO) 15.5 % (20.0-44.0); MEAN CORPUSCULAR HEMOGLOBIN 29 PG (26.0-33.0); MEAN CORPUSCULAR HGB CONC 31 g/dl (31.0-36.0); MEAN CORPUSCULAR VOLUME 92 fL (82-100); MONOCYTES # (AUTO) 0.7 /CMM (0.1-1.30); MONOCYTES % (AUTO) 8.9 % (2.0-12.0); NEUTROPHILS % (AUTO) 73.6 % (43.0-81.0); PLATELET COUNT (AUTO) 295 /CMM (150-450); RDW COEFFICIENT OF VARIATION 20.5 (11.5-15.0); RED BLOOD CELL COUNT(AUTO) 2.35 MIL/uL (4.0-5.2); WHITE BLOOD COUNT (AUTO) 8.1 K/uL (4.3-11.0)
[2017-01-29 06:58] LABS: HEMOGLOBIN 6.8 g/dL (11.5-14.8)
[2017-01-29 07:06] LABS: ALANINE AMINOTRANSFERASE 8 U/L (12-78); ALBUMIN 2.2 g/dL (3.4-5.0); ALKALINE PHOSPHATASE 113 U/L (46-116); ASPARTATE AMINOTRANSFERASE 18 U/L (15-37); BILIRUBIN,TOTAL 0.4 mg/dL (0.2-1.0); CARBON DIOXIDE 33 mmol/L (21-32); CHLORIDE 102 mmol/L (98-107); CREATININE 1.9 mg/dL (0.6-1.3); GLUCOSE 63 mg/dL (74-106); INR 0.98 (0.87-1.13); MAGNESIUM 2.4 mg/dL (1.8-2.4); PHOSPHORUS 5.3 mg/dL (2.5-4.9); POTASSIUM 3.7 mmol/L (3.5-5.1); PROTHROMBIN TIME 10.2 SECS (9.5-12.7); SODIUM SERUM 141 mmol/L (136-145); TOTAL PROTEIN, SERUM 6.3 g/dL (6.4-8.2); UREA NITROGEN, BLOOD 35 mg/dL (7-18)
--- NOTE | 2017-01-29 07:06 | NUR ---
pt had a critical lab value of Hgb and HCT of 6.8 and 22. MD. garces is contacted and ordered to transfuse 2 units of PRBC's . will endorse it to day shift nurse to follow up. Addendum: 01/29/17 at 0708 by TIFFANY HERNANDEZ RN Amended: Links added.
[2017-01-29 07:09] LABS: CHOLESTEROL 143 mg/dL (<200); HDL CHOLESTEROL 62 mg/dL (40-60); LDL 63 mg/dL (0-99); THYROID STIMULATING HORMONE 1.074 uIU/mL (0.358-3.74); TRIGLYCERIDES 76 mg/dL (30-150)
--- NOTE | 2017-01-29 07:57 | NUR ---
RN NOTES RECEIVED PT. PT IS STABLE AND RESTING IN BED. NO S/S OF DISTRESS OR SOB. PT IS ON 1L O2 VIA NC. DAUGHTERS REMAIN BEDSIDE. TELE MONITOR CHECKED, SR. IV ACCESS LOCTED ON LEFT FOREARM, 20G. AV FISTULA LOCATED ON IRMA, PACEMAKER PRESENT ON LEFT CHEST WALL. LAB RESULTS IN AM FOUND H/H TO BE SIGNIFICANTLY LOW. FOLLOWED UP W/ LAB, PT WAS FOUND TO BE POSITIVE FOR ANTIBODIES. PRBCS TO BE SENT OVER FROM [email or web address], ESTIMATED TIME OF ARRIVAL AT 1100. WILL F/U WITH LAB AGAIN REGARDING PRBCS. SAFETY MEASURES IN PLACE, CALL LIGHT WITHIN REACH. WILL CONTINUE TO MONITOR.
[2017-01-29 08:44] LABS: EOSINOPHILS % (MANUAL) 1 % (0-4); LYMPHOCYTES % (MANUAL) 31 % (16-48); MONOCYTES % (MANUAL) 6 % (0-11.0); NEUTROPHILS % (MANUAL) 62 (42-76)
[2017-01-29] MEDS: AMIODARONE HCL 200 MG TABLET PO SCH (09:00)
[2017-01-29] MEDS: SEVELAMER CARBONATE 800 MG TABLET PO SCH ×3 (09:00→17:40)
[2017-01-29] MEDS: VALSARTAN 80 MG TABLET PO SCH (09:00)
[2017-01-29] MEDS: PRAMIPEXOLE DI-HCL 0.25 MG TABLET PO SCH ×3 (09:00→17:38)
[2017-01-29] MEDS: BUMETANIDE (1 MG) 1 MG TABLET PO SCH ×2 (09:00→17:39)
[2017-01-29] MEDS: ACIDOPHILUS/BULGARICUS 1 EACH TAB.CHEW PO SCH (09:00)
--- NOTE | 2017-01-29 10:46 | NUR ---
WOUND CARE CONSULT: PT PRESENTS WITH STAGE 3 ULCER TO SACRUM, PRESENT ON ADMISSION. RECOMMENDATIONS MADE FOR WOUND CARE AND SKIN PROTECTION. DR GREER VALENCIA PREVIOUSLY FOLLOWED PT FOR WOUND. RECOMMEND SURGICAL FOLLOWUP. ALL SKIN PROTECTION AND WOUND RECOMMENDATIONS DISCUSSED WITH NURSING STAFF. FIRST STEP MATTRESS ORDERED. PT NOTED TO HAVE VERY FRAGILE SKIN AND GENERALIZED EDEMA. WILL SEE PRN. ANTONIO IN AGREEMENT WITH PLAN OF CARE. Addendum: 01/29/17 at 1052 by LYNNE ASHBY WNDNU Amended: Links added.
[2017-01-29] MEDS ORDERED: ONDANSETRON 4 MG TAB.RAPDIS PO PRN (11:00)
--- NOTE | 2017-01-29 11:33 | NUR ---
RN NOTES F/U WITH LAB REGARDING PRBCS FROM [facility]. WAS INFORMED THAT A SECOND ANTIBODY WAS IDENTIFIED, CAUSING A DELAY IN RECEIVING THE UNITS. ETA FOR PRBCS IS NOW AT 1300. WILL CONTINUE TO F/U WITH LAB.
[2017-01-29] MEDS: HYDROGEL DRESSING 90 GM TUBE TP SCH (13:14)
[2017-01-29] MEDS ORDERED: EPOETIN ALFA (10,000 UNIT) 10,000 UNIT/ML VIAL SQ ONE (14:30)
[2017-01-29] MEDS ORDERED: CEFTRIAXONE 1 G in IV D5W 50 ML IV SCH (17:00)
[2017-01-29] MEDS ORDERED: Medication Not On Formulary EA (Ubiquinol (Active-Q) 200 MG) PO SCH (18:00)
[2017-01-29] MEDS ORDERED: Rasagiline Mesylate 1 MG PO SCH (18:00)
[2017-01-29] MEDS: CALCIUM CARBONATE (1250) 500 MG TABLET PO SCH (18:00)
--- NOTE | 2017-01-29 18:52 | NUR ---
RN CLOSING NOTE PT RESTING IN BED, DAUGHTER AT BEDSIDE. A/OX4. NO S/S OF DISTRESS OR SOB. NO C/O PAIN AT THIS TIME. LAB CALLED TO UPDATE THAT BLOOD ARRIVED AT APPROXIMATELY 1600. AWAITING TO TRANSFUSE 2 UNITS PRBCS AND PERFORM DIALYSIS AT THE SAME TIME. DIALYSIS ARRIVED ON UNIT AT 1800. SAFETY MEASURES IN PLACE, CALL LIGHT WITHIN REACH. WILL ENDORSE TO [employer] FOR ANDRA.
--- NOTE | 2017-01-29 19:15 | NUR ---
MS RN NOTES RECEIVED PATIENT RESTING IN BED, A O X 2. RESP EVEN & NON LABORED. ON O2 AT 2 LPM VIA NC. NO DISTRESS NOTED. DENIED ANY PAIN. LEFT CHEST WAL PACEMAKER FUNCTIONING PROPERLY. IV ACCESS TO LFA, INTACT PATENT. IRMA AV FISTULA WITH HD RUNNING. DTR AT BEDSIDE. PER AM SHIFT RN, PT'S HGB IS CRITICAL LOW 6.8G.DL. 3 UNITS OF PRBC WAS ORDERED BY . PERSON DOING HD WILL ASSIST WITH BLOOD TRANSFUSION. 1ST UNIT BROUGHT FROM LAB BY AM RN. SAFETY MEASURES IN PLACE. BED IN LOW LOCKED POSITION. CALL LIGHT WITHIN REACH. WILL START BT SHORTLY. MONITORING FOR ANY CHANGE OF CONDITION.
--- NOTE | 2017-01-29 19:30 | NUR ---
BLOOD TRANSFUSION STARTED PATIENT LAYING IN BED COMFORTABLY WHILE DIALYSIS GOING ON. VS CHECKED & WNL. 1ST UNIT OF PRBC'S VERIFIED WITH SECOND RN, NO ANDRA NOTED. BT STARTED SLOWLY. NO ADVERSE REACTION NOTED. PT IN STABLE CONDITION. STAYED WITH THE PATIENT FOR 15 MINUTES. DTR & DIALYSIS PERSON AT BEDSIDE. WILL CHECK FREQUENTLY.
--- NOTE | 2017-01-29 19:45 | NUR ---
MS RN NOTES PATIENT COMFORTABLE IN BED WHILE DIALYSIS & BT GOING ON. NO ADVERSE REACTION NOTED.
--- NOTE | 2017-01-29 20:00 | NUR ---
2ND UNIT OF PRBC 2ND UNIT OF PRBC WAS PICKED UP FROM THE LAB, VERIFIED BY 2 RN NURSES, STARTED TRANSFUSING 2ND UNIT. NO COMPLICATIONS/ADVERSE REACTION NOTED. VS WNL.
--- NOTE | 2017-01-29 20:45 | NUR ---
BT ENDED TRANSFUSED 2ND UNIT OF BLOOD. PATIENT IN STABLE CONDITION, NO CONCERNS NOTED AT ALL. VERBALLY RESPONSIVE, VS WNL. MADE COMFORTABLE IN BED.
--- NOTE | 2017-01-29 20:53 | NUR ---
CORRECTION OF 2052 NOTE MADE AWARE.
--- NOTE | 2017-01-29 20:53 | NUR ---
SLIP TENDER NOTES BLOOD TRANSFUSION OF 2 UNITS FINISHED, MA MADE AWARE & ORDERED REPEAT CBC 1 HR AFTER 2 UNITS OF BT DONE. NOTED & CARRIED OUT. DTR AT BED SIDE. NO S/S OF BLOOD TRANSFUSION REACTION NOTED. MONITORING CLOSELY.
[2017-01-29 22:05] LABS: BASOPHILS % (AUTO) 0.4 % (0.0-2.0); EOSINOPHILS # (AUTO) 0.2 /CMM (0.0-0.7); EOSINOPHILS % (AUTO) 2.1 % (0.0-6.0); HEMATOCRIT 35 % (33-45); HEMOGLOBIN 11.4 g/dL (11.5-14.8); LYMPHOCYTES # (AUTO) 1.2 /CMM (0.8-4.8); LYMPHOCYTES % (AUTO) 10.5 % (20.0-44.0); MEAN CORPUSCULAR HEMOGLOBIN 29 PG (26.0-33.0); MEAN CORPUSCULAR HGB CONC 33 g/dl (31.0-36.0); MEAN CORPUSCULAR VOLUME 89 fL (82-100); MONOCYTES # (AUTO) 0.8 /CMM (0.1-1.30); MONOCYTES % (AUTO) 6.5 % (2.0-12.0); NEUTROPHILS # (AUTO) 9.4 /CMM (1.8-8.9); NEUTROPHILS % (AUTO) 80.5 % (43.0-81.0); PLATELET COUNT (AUTO) 293 /CMM (150-450); RDW COEFFICIENT OF VARIATION 19.4 (11.5-15.0); WHITE BLOOD COUNT (AUTO) 11.7 K/uL (4.3-11.0)
--- NOTE | 2017-01-29 23:00 | NUR ---
NOTIFIED AFTER LAB RESULTS RECEIVED WITH HGB 11.4, HCT 35, DR. NEWMAN MADE AWARE & ORDERED NOT TO GIVE 3RD UNIT OF PRBC'S YET. WILL REVIEW THE LABS IN AM. CHARGE NURSE AWARE.
--- NOTE | 2017-01-30 02:30 | NUR ---
MS RN NOTES PATIENT SLEEPING COMFORTABLY IN BED. DTR AT BED SIDE. ADL CARE PROVIDED.
--- NOTE | 2017-01-30 06:40 | NUR ---
MS RN CLOSING NOTES PATIENT SLEPT WELL AT NIGHT. NO SOB OR ACUTE DISTRESS/DISCOMFORT NOTED, DENIED ANY PAIN. A & O X 2 WITH FORGETFULNESS. ABLE TO MAKE NEEDS KNOWN. IV ACCESS TO LFA, HL, INTACT PATENT. IRMA AV FISTULA, THRILL & BRUIT CHECKED. LEFT CHEST WALL PACEMAKER REMAINS IN PLACE, NO MALFUNCTIONING NOTED. ON O2 VIA NC @2LPM. TURNED/REPOSITIONED IN BED PER PROTOCOL. KEPT CLEAN & DRY. DTR AT BEDSIDE. IN SEMI MARK POSITION FOR COMFORT. SIDE RAILS X2 UP. BED IN LOW LOCKED POSITION. CALL LIGHT WITHIN REACH. WILL ENDORSE TO AM SHIFT RN FOR CONTINUITY OF CARE.
[2017-01-30 06:50] LABS: BASOPHILS # (AUTO) 0.1 /CMM (0.0-0.2); BASOPHILS % (AUTO) 0.6 % (0.0-2.0); EOSINOPHILS # (AUTO) 0.3 /CMM (0.0-0.7); EOSINOPHILS % (AUTO) 2.7 % (0.0-6.0); HEMATOCRIT 30 % (33-45); LYMPHOCYTES # (AUTO) 1.5 /CMM (0.8-4.8); LYMPHOCYTES % (AUTO) 14.7 % (20.0-44.0); MEAN CORPUSCULAR HEMOGLOBIN 30 PG (26.0-33.0); MEAN CORPUSCULAR HGB CONC 34 g/dl (31.0-36.0); MEAN CORPUSCULAR VOLUME 90 fL (82-100); MONOCYTES # (AUTO) 0.8 /CMM (0.1-1.30); MONOCYTES % (AUTO) 8.1 % (2.0-12.0); NEUTROPHILS # (AUTO) 7.6 /CMM (1.8-8.9); NEUTROPHILS % (AUTO) 73.9 % (43.0-81.0); PLATELET COUNT (AUTO) 287 /CMM (150-450); RED BLOOD CELL COUNT(AUTO) 3.34 MIL/uL (4.0-5.2); WHITE BLOOD COUNT (AUTO) 10.3 K/uL (4.3-11.0)
[2017-01-30 07:01] LABS: CALCIUM, SERUM 10.3 mg/dL (8.5-10.1); CARBON DIOXIDE 32 mmol/L (21-32); CHLORIDE 103 mmol/L (98-107); CREATININE 1.9 mg/dL (0.6-1.3); GLUCOSE 107 mg/dL (74-106); MAGNESIUM 2.4 mg/dL (1.8-2.4); PHOSPHORUS 4.5 mg/dL (2.5-4.9); POTASSIUM 3.7 mmol/L (3.5-5.1); SODIUM SERUM 141 mmol/L (136-145); UREA NITROGEN, BLOOD 31 mg/dL (7-18)
--- NOTE | 2017-01-30 07:47 | NUR ---
RN NOTES RECEIVED PT. PT IS STABLE AND RESTING IN BED, DAUGHTERS BEDSIDE. A/OX3, NO S/S OF DISTRESS OR SOB. PT HAS NO C/O PAIN AT THIS MOMENT. PT RECEIVED TRANSFUSION OF 2 UNITS PRBCS PREVIOUS NIGHT. H/H AT 11.4/35 THIS MORNING. IV ACCESS LOCATED ON LEFT FOREARM, 20 G SL. SAFETY MEASURES IN PLACE, CALL LIGHT WITHIN REACH, WILL CONTINUE TO MONITOR.
[2017-01-30 08:00] VITALS: BP 131/62
[2017-01-30] MEDS: SEVELAMER CARBONATE 800 MG TABLET PO SCH ×3 (08:00→17:24)
[2017-01-30] MEDS: ACIDOPHILUS/BULGARICUS 1 EACH TAB.CHEW PO SCH (09:00)
[2017-01-30] MEDS: HYDROGEL DRESSING 90 GM TUBE TP SCH (09:00)
[2017-01-30] MEDS: PRAMIPEXOLE DI-HCL 0.25 MG TABLET PO SCH ×3 (09:44→17:04)
[2017-01-30] MEDS: BUMETANIDE (1 MG) 1 MG TABLET PO SCH ×2 (09:45→17:04)
[2017-01-30] MEDS: VALSARTAN 80 MG TABLET PO SCH (09:49)
[2017-01-30] MEDS: AMIODARONE HCL 200 MG TABLET PO SCH (09:50)
[2017-01-30] MEDS: CINACALCET HCL 30 MG TABLET PO SCH (10:30)
[2017-01-30] MEDS: HYDROGEL DRESSING 90 GM TUBE TP PRN (10:36)
[2017-01-30] MEDS ORDERED: MEROPENEM 500 MG in IV NS 0.9% 50 ML IV SCH ×4 (13:00)
[2017-01-30 16:00] VITALS: BP 129/84
--- NOTE | 2017-01-30 17:21 | NUR ---
RN NOTES IV ABX INFUSION NOT COMPLETED DUE TO INFILTRATION OF IV SITE. LEFT FOREARM IV ACCESS REMOVED, MIDLINE ORDER PLACED PER HOSPITALIST BETTY ALVARADO. PT PLACED ON CONTACT ISOLATION DUE TO URINE CULTURE RESULTS SHOWING KLEBSIELLA PNEUMONIAE INFECTION OF URINE.
[2017-01-30] MEDS: CALCIUM CARBONATE (1250) 500 MG TABLET PO SCH (17:24)
--- NOTE | 2017-01-30 17:25 | NUR ---
RN NOTES CONTACTED PHARMACY REGARDING PO RENVELA TABLETS. PT HAS DIFFICULTY SWALLOWING, QUESTIONED PHARMACY TO POTENTIAL REPLACEMENTS FOR RENVELA TABLETS. PHARMACY TO DC TABLETS AND PLACE ORDER FOR RENVELA POWDER AT SAME DOSE.
[2017-01-30] MEDS: SEVELAMER CARBONATE 0.8 GM POWD.PACK PO SCH (18:00)
[2017-01-30] MEDS: ACETAMINOPHEN 325 MG TABLET PO PRN (18:37)
[2017-01-30 19:30] VITALS: BP 142/53
--- NOTE | 2017-01-30 19:33 | NUR ---
RN NOTES PT IS IN BED SLEEPING. HAD A MILD C/O PAIN THAT WAS ADDRESSED WITH TYLENOL. DAUGHTER IS BEDSIDE FOR THE NIGHT. ALL PT NEEDS ANTICIPATED AND MET. SAFETY MEASURES IN PLACE, CALL LIGHT WITHIN REACH. WILL ENDORSE TO NURSING DIRECTOR FOR ANDRA.
[2017-01-30 20:00] VITALS: BP 142/59
--- NOTE | 2017-01-30 20:00 | NUR ---
MS/RN OPENING NOTES PATIENT IN BED, RESTING COMFORTABLY IN BED. ABLE TO FOLLOW SIMPLE COMMANDS, COOPERATIVE TO CARE , PARTICIPATED IN ADLS, REPOSITION FOR COMFORT. KEPT SKIN INTACT AND DRY. ON CONTACT ISOLATION DUE TO KLEBSIELLA URINE. AWAITING FOR MIDLINE TO BE INSERTED, INFORMED CHARGE NURSE AND BOXCAR WEIGHER MADE AWARE. INFORMED FAMILY REGARDING PROCEDURE AND DIALYSIS [place] AM. WILL CONTINUE TO MONITOR.
[2017-01-30] MEDS ORDERED: FEE PK DOSING 1 MIN EA MC ONE (20:35)
[2017-01-30] MEDS: GENTAMICIN 80 MG in IV D5W 50 ML IV SCH (23:54)
--- NOTE | 2017-01-31 00:42 | NUR ---
MS/RN NOTES PATIENT REQUESTED TO HAVE BIPAP ON, INFORM THE BENEFIT
--- NOTE | 2017-01-31 06:37 | NUR ---
MS/RN CLOSING NOTES PATIENT ABLE TO SLEEP DURING THE NIGHT, REPOSTION/TURN FOR COMFORT, DRESSING INTACT AND DRY ON SACRAL, RESPIRATIONS EVEN AND UNLABORED W/ 2 ; OXYGEN VIA NC. SKIN WARM TO TOUCH. FAMILY AT BEDSIDE. DIAPER CHANGE/ PROVIDE FLUIDS, COOPERATIVE TO CARE. WILL CONTINUE TO MONITOR.
--- NOTE | 2017-01-31 07:20 | NUR ---
MS RN INITIAL NOTES RECEIVED PT IN BED ASLEEP,ON ROOM AIR,NO SOB, NO APPARENT DISTRESS NOTED.KEPT CLEAN AND COMFORTABLE.CALL LIGHT WITHIN REACH. WILL CONTINUE TO MONITOR ACCORDINGLY
[2017-01-31 07:50] LABS: BASOPHILS % (AUTO) 0.4 % (0.0-2.0); EOSINOPHILS # (AUTO) 0.2 /CMM (0.0-0.7); EOSINOPHILS % (AUTO) 1.8 % (0.0-6.0); HEMATOCRIT 29 % (33-45); HEMOGLOBIN 9.4 g/dL (11.5-14.8); LYMPHOCYTES # (AUTO) 1.4 /CMM (0.8-4.8); LYMPHOCYTES % (AUTO) 14.3 % (20.0-44.0); MEAN CORPUSCULAR HEMOGLOBIN 29 PG (26.0-33.0); MEAN CORPUSCULAR HGB CONC 32 g/dl (31.0-36.0); MEAN CORPUSCULAR VOLUME 91 fL (82-100); MONOCYTES # (AUTO) 0.8 /CMM (0.1-1.30); MONOCYTES % (AUTO) 8.8 % (2.0-12.0); NEUTROPHILS # (AUTO) 7.2 /CMM (1.8-8.9); NEUTROPHILS % (AUTO) 74.7 % (43.0-81.0); PLATELET COUNT (AUTO) 281 /CMM (150-450); RDW COEFFICIENT OF VARIATION 20.4 (11.5-15.0); RED BLOOD CELL COUNT(AUTO) 3.23 MIL/uL (4.0-5.2); WHITE BLOOD COUNT (AUTO) 9.7 K/uL (4.3-11.0)
[2017-01-31 08:00] VITALS: BP 143/55
[2017-01-31] MEDS: SEVELAMER CARBONATE 0.8 GM POWD.PACK PO SCH ×3 (08:00→17:43)
[2017-01-31 08:03] LABS: CALCIUM, SERUM 10.4 mg/dL (8.5-10.1); CARBON DIOXIDE 32 mmol/L (21-32); CHLORIDE 103 mmol/L (98-107); CREATININE 2.6 mg/dL (0.6-1.3); GLUCOSE 99 mg/dL (74-106); POTASSIUM 4.1 mmol/L (3.5-5.1); SODIUM SERUM 140 mmol/L (136-145); UREA NITROGEN, BLOOD 39 mg/dL (7-18)
[2017-01-31] MEDS: VALSARTAN 80 MG TABLET PO SCH (09:00)
--- NOTE | 2017-01-31 09:00 | NUR ---
RN MS NOTES PT IN BED, AWAKE, VERBALLY RESPONSIVE, NOT IN DISTRESS, ON O2 AT 1LPM VIA N/C, PT SEEN BY ZI HERNÁNDEZ, ORDERED TO DO ABG, RESULTS RELAYED TO DR. CARLIN.
[2017-01-31 09:47] LABS: ABG BASE EXCESS 2.8 mmol/L; ABG OXYGEN SATURATION 90.4 % (92.0-98.5); ABG PCO2 69.2 mmHg (35.0-45.0); ABG PH 7.268 (7.350-7.450); ABG PO2 64.1 mmHg (75.0-100.0); AaDO2 53.9 mmHg; COHb 1.6 % (0.5-1.5); MetHb 0.2 % (0.0-1.5); O2Hb 88.8 % (94.0-97.0); SITE, ABG Left Radial; VENT MODE, BG 1L NC
--- NOTE | 2017-01-31 12:08 | NUR ---
RT PLACED PT ON BIPAP PER NURSING MANAGER AGENCY APPROVAL DUE TO ABGS SEE RESULTS. PT IS ON DIALYSIS, PLACE BIPAP 22/5 40% O2 14 RATE WILL CONTINUE TO MONITOR AND TAKE ANOTHER ABG AFTER DIALYSIS Addendum: 01/31/17 at 1211 by KUNAL GARZA RT Amended: Links added.
[2017-01-31] MEDS: HYDROGEL DRESSING 90 GM TUBE TP SCH (12:28)
[2017-01-31] MEDS: PRAMIPEXOLE DI-HCL 0.25 MG TABLET PO SCH ×3 (12:29→16:27)
[2017-01-31] MEDS: AMIODARONE HCL 200 MG TABLET PO SCH (12:29)
[2017-01-31] MEDS: ACIDOPHILUS/BULGARICUS 1 EACH TAB.CHEW PO SCH (12:29)
--- NOTE | 2017-01-31 12:30 | NUR ---
RN MS NOTES PT COMPLETED DIALYSIS, TOLERATED WELL, VITALS SIGNS STABLE.
[2017-01-31] MEDS: BUMETANIDE (1 MG) 1 MG TABLET PO SCH ×2 (12:33→17:43)
[2017-01-31 13:24] LABS: ABG BASE EXCESS 5.9 mmol/L; ABG OXYGEN SATURATION 95.6 % (92.0-98.5); ABG PCO2 72.8 mmHg (35.0-45.0); ABG PO2 90.6 mmHg (75.0-100.0); AaDO2 52.4 mmHg; COHb 1.4 % (0.5-1.5); MetHb 0.2 % (0.0-1.5); O2Hb 94.1 % (94.0-97.0); SITE, ABG Left Radial
--- NOTE | 2017-01-31 13:47 | NUR ---
RN MS NOTES REPEAT ABG RELAYED TO DR. CARLIN, ORDERS GIVEN TO DO ABG IN AM, PT WILL BE ON NOCTURNAL BIPAP 14/08, FOR DISTRESS TRANSFER TO ICU AND CALL FOR ORDERS.
--- NOTE | 2017-01-31 14:52 | NUR ---
RT PT REMOVED OFF BIPAP AFTER DIALYISIS ANOTHER ABG TAKEN, RASHAAD/JENNIFER INFORMED OF RESULTS, BIPAP ORDERED NOC ONLY 14/08 Addendum: 01/31/17 at 1457 by KUNAL GARZA RT Amended: Links added.
[2017-01-31 16:00] VITALS: BP 143/50
[2017-01-31] MEDS: ACETAMINOPHEN 325 MG TABLET PO PRN (16:28)
[2017-01-31] MEDS ORDERED: APIXABAN 2.5 MG TABLET PO ONE (17:00)
[2017-01-31] MEDS: CARBIDOPA/LEV CR 50/200 MG 1 UDTAB.SA PO SCH (17:42)
--- NOTE | 2017-01-31 18:12 | NUR ---
MS RN Closing notes Pt in bed resting comfortably,awake, responsive.On oxygen via n/c at 1l/min..O2sat 96%. Rt lung thoracentesis done under ultrasound guidance pt tolerated procedure well, no bleeding noted,no s/sx of pain or discomfort.Chest Xray done as ordered, sent specimen to the lab,endorsed to Mayur.Turned and repositioned q 2h, wound care done,kept clean and comfortable.Call light within reach.Will continue to monitor accordingly
[2017-01-31 20:00] VITALS: BP 154/62
--- NOTE | 2017-01-31 20:00 | NUR ---
MS/RN OPENING NOTES PATIENT IN BED, HOB ELEVATED, AWAKE, ALERT WI [employer] E[employer] CONTACT, ON OXYGEN VIA NC AT 1 LITER,FAMILY AT BEDSIDE. RECEIVED REPORT FROM AM RN RE PLAN OF CARE. PATIENT WILL BE ON BIPAP NOCTURNAL USE , RT MADE AWARE, HOME MEDICATIONS RECEIVED ELIQUIS AND RASAGILINE, CHEMICAL ECONOMIST JUDE INFORMED FOR HOME . WILL SENT HOME MED TO PHARMACY. PATIENT HAD S/P DIALYSIS WITH 1.3 L OUT , US GUIDED THORACENTESIS WAS DONE ALSO AND TOOK OUT1 LITER OUT. WILL CONTINUE TO PROVIDE CARE.
--- NOTE | 2017-01-31 21:35 | NUR ---
PLACED BIPAP AT NIGHT PER MD'S ORDER. NO RESPIRATORY DISTRESS AT THIS TIME, WILL CONTINUE TO MONITOR THE PT. SAROJ LANDA NOTIFIED.
--- NOTE | 2017-01-31 22:50 | NUR ---
ms/rn notes PATIENT REQUESTED TO HAVE BIPAP OFF FOR THE MEANTIME . WILL MONITOR.
[2017-02-01] MEDS: ACETAMINOPHEN 325 MG TABLET PO PRN ×2 (00:32→20:55)
--- NOTE | 2017-02-01 00:42 | NUR ---
ms/rn notes PATIENT REQUEST TO HAVE BIPAP , INFORMED THE BENEFIT OF HAVING IT ON.
--- NOTE | 2017-02-01 02:00 | NUR ---
MS/RN NOTES PATIENT REQUEST TO HAVE BIPAP OFF, CHECK OXYGENATION AT 94%, , REQUEST TO HAVE BIPAP DURING DAY PATIENT TAKE NAPS PER DAUGHTER WILL ENDORSE [place] AM .
--- NOTE | 2017-02-01 06:34 | NUR ---
MS/RN NOTES PATIENT IN BED, RESTING COMFORTABLY IN BED, DENIES PAIN, ABLE TO SLEEP FEW HOURS, CPAP OFF PER PATIENT REQUEST, MONITORED FOR ANY S/S OF DISCOMFORT, PROVIDE CARE, KEPT WARM, OXYGENATION AT 1 LT NC AT 96%, REPOSITION AND TURNED, REFUSE TO HAVE SPONGE BATH AT THIS TIME. PROVIDE SKIN CARE. ATTEND TO NEEDS, ROCKY CONTINUE TO MONITOR.
--- NOTE | 2017-02-01 07:44 | NUR ---
MS RN: INITIAL NOTE RECEIVED PT A/O2. ON CONTACT ISOLATION FOR URINE KLEBSILLA. ON 1L NC SATING AT 94%. PACEMAKER. BLE EDEMA. ON DIALYSIS. USES DIAPER AND ANURIC. DIET MECHANICAL SOFT. L HAND #20 WITH NO IV FLUIDS RUNNING. SITE CLEAR AND PATENT. NO DISTRESS. NO SOB. NO PAIN NOTED. FAMILY AT BED SIDE. RESTING COMFORTABLY IN BED. CALL LIGHT WITHIN REACH.
[2017-02-01 08:00] VITALS: BP 154/63
[2017-02-01] MEDS: SEVELAMER CARBONATE 0.8 GM POWD.PACK PO SCH ×3 (08:00→17:03)
[2017-02-01 08:13] LABS: CALCIUM, SERUM 10.2 mg/dL (8.5-10.1); CARBON DIOXIDE 36 mmol/L (21-32); CHLORIDE 101 mmol/L (98-107); CREATININE 2.2 mg/dL (0.6-1.3); GLUCOSE 88 mg/dL (74-106); MAGNESIUM 2.2 mg/dL (1.8-2.4); SODIUM SERUM 142 mmol/L (136-145); UREA NITROGEN, BLOOD 28 mg/dL (7-18)
[2017-02-01 08:27] LABS: BASOPHILS % (AUTO) 0.6 % (0.0-2.0); EOSINOPHILS # (AUTO) 0.3 /CMM (0.0-0.7); EOSINOPHILS % (AUTO) 3.2 % (0.0-6.0); HEMATOCRIT 30 % (33-45); HEMOGLOBIN 9.9 g/dL (11.5-14.8); LYMPHOCYTES # (AUTO) 1.6 /CMM (0.8-4.8); LYMPHOCYTES % (AUTO) 17.6 % (20.0-44.0); MEAN CORPUSCULAR HEMOGLOBIN 30 PG (26.0-33.0); MEAN CORPUSCULAR HGB CONC 33 g/dl (31.0-36.0); MEAN CORPUSCULAR VOLUME 92 fL (82-100); MONOCYTES # (AUTO) 0.6 /CMM (0.1-1.30); MONOCYTES % (AUTO) 7.1 % (2.0-12.0); NEUTROPHILS # (AUTO) 6.4 /CMM (1.8-8.9); NEUTROPHILS % (AUTO) 71.5 % (43.0-81.0); PLATELET COUNT (AUTO) 290 /CMM (150-450); RDW COEFFICIENT OF VARIATION 19.9 (11.5-15.0); RED BLOOD CELL COUNT(AUTO) 3.31 MIL/uL (4.0-5.2); WHITE BLOOD COUNT (AUTO) 8.9 K/uL (4.3-11.0)
[2017-02-01] MEDS: VALSARTAN 80 MG TABLET PO SCH (09:00)
[2017-02-01] MEDS: CARBIDOPA/LEV CR 50/200 MG 1 UDTAB.SA PO SCH ×3 (09:00→17:03)
[2017-02-01] MEDS ORDERED: APIXABAN 2.5 MG TABLET PO ONE (09:00)
--- NOTE | 2017-02-01 09:11 | NUR ---
MED ON HOLD DUE TO PT HAVING DIALYSIS.
--- NOTE | 2017-02-01 11:40 | NUR ---
OUTPUT WITH DIALYSIS 2.5L. BP 127/56, PULSE 78. NO DISTRESS NOTED. NO PAIN NOTED. NO SOB NOTED. HELD VALSARTAN, RENVELA, AND SINEMT PER FAMILY REQUEST.
[2017-02-01] MEDS: GENTAMICIN 80 MG in IV D5W 50 ML IV SCH (11:42)
[2017-02-01] MEDS: BUMETANIDE (1 MG) 1 MG TABLET PO SCH ×2 (11:42→17:04)
[2017-02-01] MEDS: CINACALCET HCL 30 MG TABLET PO SCH (11:43)
[2017-02-01] MEDS: PRAMIPEXOLE DI-HCL 0.25 MG TABLET PO SCH ×3 (11:43→17:03)
[2017-02-01] MEDS: ACIDOPHILUS/BULGARICUS 1 EACH TAB.CHEW PO SCH (11:43)
[2017-02-01] MEDS: AMIODARONE HCL 200 MG TABLET PO SCH (11:46)
[2017-02-01] MEDS: HYDROGEL DRESSING 90 GM TUBE TP SCH (11:48)
--- NOTE | 2017-02-01 12:00 | NUR ---
WOUND CARE DONE ORDERED.
[2017-02-01 12:35] LABS: ABG BASE EXCESS 8.6 mmol/L; ABG OXYGEN SATURATION 97.9 % (92.0-98.5); ABG PCO2 53.2 mmHg (35.0-45.0); ABG PH 7.428 (7.350-7.450); ABG PO2 114.9 mmHg (75.0-100.0); COHb 1.2 % (0.5-1.5); MetHb 0.7 % (0.0-1.5); SITE, ABG Right Radial; VENT MODE, BG NC 3 L
[2017-02-01 16:00] VITALS: BP 119/51
--- NOTE | 2017-02-01 16:15 | NUR ---
PER ZI DEL RIO TO FLORENCIO CONSENT FOR BEDSIDE EXCISIONAL DEBRIDEMENT OF SACRAL WOUND. CONSENT SIGNED BY DAUGHTER AT BEDSIDE.
[2017-02-01] MEDS: HOME MED - ELIQUIS 5MG PO SCH (17:04)
--- NOTE | 2017-02-01 18:49 | NUR ---
MS RN: CLOSING NOTE A/OX2. TOOK ALL MEDIATIONS ON TIME. NO ADVERSE REACTIONS NOTED. NO PAIN NOTED. NO SOB NOTED. ON 1L NC SATING AT 96%. ANURIC. USES DIAPER. DIALYSIS DONE IN AM- OUTPUT OF 2.1L. BEDREST. WOUND CHANGE DONE. BEDSIDE SACRAL DEBRIDEMENT DONE BY ZI DEL RIO. CONSENT SIGNED BY DAUGHTER BEFORE PROCEDURE. DRESSING INTACT. NO PAIN DURING AND AFTER DEBRIDEMENT. L HAND #20 WITH NO IV FLUIDS RUNNING. SITE CLEAR AND PATENT. RA AV FISTULA FOR DIALYSIS. DRESSING INTACT. ON CONTACT ISOLATION FOR KLEBSILA OF URINE. RESTING COMFORTABLY IN BED. CALL LIGHT WITHIN REACH.
[2017-02-01 20:00] VITALS: BP_SYST 145; BP_SYST 157; BP_DIAS 53; BP_DIAS 92
--- NOTE | 2017-02-01 20:02 | NUR ---
RT PT IN 1L NC, AWAKE ALERT, NO SOB SP02 97% 63 HR 14RR. WILL COME BACK AT 9PM FOR BIPAP NOC
--- NOTE | 2017-02-01 23:36 | NUR ---
Rt Bipap is on for 1hr 55mins pt back on 1 l nc sat 97% hr 64 rr 16 Addendum: 02/01/17 at 2338 by KUNAL GARZA RT Amended: Links added.
--- NOTE | 2017-02-02 06:50 | NUR ---
RN CLOSING NOTES NO SIGNIFICANT CHANGE OF CONDITION. DAUGHTER AT BEDSIDE. BIPAP ON FOR LESS THAN 2 HOURS. NO DISTRESS NOTED. KEPT CLEAN AND DRY. WILL ENDORSE TO AM SHIFT FOR CONTINUITY OF CARE.
[2017-02-02 07:05] LABS: BASOPHILS % (AUTO) 0.5 % (0.0-2.0); EOSINOPHILS # (AUTO) 0.4 /CMM (0.0-0.7); EOSINOPHILS % (AUTO) 3.8 % (0.0-6.0); HEMATOCRIT 31 % (33-45); HEMOGLOBIN 10.1 g/dL (11.5-14.8); LYMPHOCYTES # (AUTO) 1.8 /CMM (0.8-4.8); LYMPHOCYTES % (AUTO) 19.5 % (20.0-44.0); MEAN CORPUSCULAR HEMOGLOBIN 30 PG (26.0-33.0); MEAN CORPUSCULAR HGB CONC 32 g/dl (31.0-36.0); MEAN CORPUSCULAR VOLUME 92 fL (82-100); MONOCYTES # (AUTO) 0.7 /CMM (0.1-1.30); MONOCYTES % (AUTO) 7.7 % (2.0-12.0); NEUTROPHILS # (AUTO) 6.5 /CMM (1.8-8.9); NEUTROPHILS % (AUTO) 68.5 % (43.0-81.0); PLATELET COUNT (AUTO) 295 /CMM (150-450); RDW COEFFICIENT OF VARIATION 20.2 (11.5-15.0); WHITE BLOOD COUNT (AUTO) 9.4 K/uL (4.3-11.0)
[2017-02-02 07:08] LABS: CALCIUM, SERUM 10.5 mg/dL (8.5-10.1); CARBON DIOXIDE 37 mmol/L (21-32); CHLORIDE 105 mmol/L (98-107); GLUCOSE 83 mg/dL (74-106); POTASSIUM 3.7 mmol/L (3.5-5.1); SODIUM SERUM 146 mmol/L (136-145); UREA NITROGEN, BLOOD 27 mg/dL (7-18)
--- NOTE | 2017-02-02 07:20 | NUR ---
RN NOTES PT IS SLEEPING IN BED RESTING COMFORTABLY WITH DAUGHTER AT BEDSIDE. NO DISTRESS NOTED. IRMA AV FISTULA IN PLACE AND IV ON L HAND INTACT. SAFETY MEASURES ARE IN PLACE,CALL LIGHT IS IN REACH. WILL CONTINUE TO MONITOR.
[2017-02-02 08:00] VITALS: BP_SYST 148; BP_DIAS 52; BP_DIAS 57
[2017-02-02] MEDS: PRAMIPEXOLE DI-HCL 0.25 MG TABLET PO SCH ×2 (08:37→12:14)
[2017-02-02] MEDS: SEVELAMER CARBONATE 0.8 GM POWD.PACK PO SCH ×2 (08:37→12:13)
[2017-02-02] MEDS: HOME MED - ELIQUIS 5MG PO SCH (08:37)
[2017-02-02] MEDS: BUMETANIDE (1 MG) 1 MG TABLET PO SCH (08:38)
[2017-02-02] MEDS: CARBIDOPA/LEV CR 50/200 MG 1 UDTAB.SA PO SCH ×2 (08:38→12:13)
[2017-02-02] MEDS: ACIDOPHILUS/BULGARICUS 1 EACH TAB.CHEW PO SCH (08:38)
[2017-02-02] MEDS: VALSARTAN 80 MG TABLET PO SCH (08:38)
[2017-02-02] MEDS: AMIODARONE HCL 200 MG TABLET PO SCH (08:38)
[2017-02-02] MEDS: HYDROGEL DRESSING 90 GM TUBE TP PRN (08:40)
[2017-02-02] MEDS: ACETAMINOPHEN 325 MG TABLET PO PRN (08:40)
[2017-02-02] MEDS: HYDROGEL DRESSING 90 GM TUBE TP SCH (08:41)
[2017-02-02] MEDS ORDERED: CARB1TAB60 PO (10:35)
[2017-02-02] MEDS ORDERED: RXGEN XX (10:35)
[2017-02-02] MEDS ORDERED: GENTAMICIN 80 MG in IV D5W 50 ML IV PRN (12:30)
[2017-02-02] MEDS ORDERED: hydrALAZINE HCL 25 MG TABLET PO SCH (15:30)
[2017-02-02 16:00] VITALS: BP 155/72
--- NOTE | 2017-02-02 16:45 | NUR ---
RN NOTES PT WAS DISCHARGED IN STABLE CONDITION TO [facility] BY AMBULANCE. REPORT WAS GIVEN TO MULUGETA AT THE FACILITY. PTS IV AND ID BANDS WERE REMOVED. DISCHARGE PAPERS AND BELONGINGS LIST WERE SIGNED. PT WAS TOLD TO FOLLOW UP WITH PCP WITHIN 1 WEEK. PTS DAUGHTER STATED SHE WOULD MAKE APPOINTMENT ON HER OWN.
== END 2017-02-02 16:45 | DRG 264 ==
LOC: ER 13:30 → TELE 18:34 → MED 01-29 11:01
PROVIDERS: ADMIT Internal Medicine; ATTEND Internal Medicine
PROC: 30233N1 Transfusion of Nonautologous Red Blood Cells into Peripheral Vein, Percutaneous Approach (ICD-10-PCS; 2017-01-28)
PROC: 5A1D70Z Performance of Urinary Filtration, Intermittent, Less than 6 Hours Per Day (ICD-10-PCS; 2017-01-29)
PROC: 0W993ZX Drainage of Right Pleural Cavity, Percutaneous Approach, Diagnostic (ICD-10-PCS; 2017-01-31)
PROC: 0JB70ZZ Excision of Back Subcutaneous Tissue and Fascia, Open Approach (ICD-10-PCS; principal; 2017-02-01)
DX: I13.2 Hypertensive heart and chronic kidney disease with heart failure and with stage 5 chronic kidney disease, or end stage renal disease (principal); J96.01 Acute respiratory failure with hypoxia; G93.41 Metabolic encephalopathy; E87.4 Mixed disorder of acid-base balance; E44.0 Moderate protein-calorie malnutrition; J90 Pleural effusion, not elsewhere classified; D68.59 Other primary thrombophilia; L89.153 Pressure ulcer of sacral region, stage 3; E83.52 Hypercalcemia; N18.6 End stage renal disease; I50.33 Acute on chronic diastolic (congestive) heart failure; R53.2 Functional quadriplegia; J96.22 Acute and chronic respiratory failure with hypercapnia; N39.0 Urinary tract infection, site not specified; G20 Parkinson's disease; I27.20 Pulmonary hypertension, unspecified; Z99.2 Dependence on renal dialysis; Z88.2 Allergy status to sulfonamides; Z88.8 Allergy status to other drugs, medicaments and biological substances; Z91.018 Allergy to other foods; Z87.440 Personal history of urinary (tract) infections; Z86.73 Personal history of transient ischemic attack (TIA), and cerebral infarction without residual deficits; B96.1 Klebsiella pneumoniae [K. pneumoniae] as the cause of diseases classified elsewhere; Z79.899 Other long term (current) drug therapy; D64.9 Anemia, unspecified; G25.3 Myoclonus; I70.0 Atherosclerosis of aorta; G93.89 Other specified disorders of brain; I48.91 Unspecified atrial fibrillation
CPT/HCPCS: 36415; 36600; 70450-TC; 71010-TC; 76942-TC; 80048-TC; 80053-TC; 80061-TC; 80076-TC; 80170-TC; 81000-TC; 82150-TC; 82247-TC; 82272-TC; 82553-TC; 82746; 82803-TC; 83540-TC; 83605-TC; 83690-TC; 83735-TC; 84100-TC; 84443-TC; 84484-TC; 85025-TC; 85045-TC; 85652-TC; 85730-TC; 86850-TC; 86880-TC; 86921-TC; 87040-TC; 87081-TC; 87086-TC; 87186-TC; 88305-TC; 88312-TC; 90935-TC; 92526; 92611-TC; 94660; 97110-TC; 97116-TC; 97530-TC; A4216; A4606; A6248; A6402; J0696; J0885; J1580; J1940; J2185; J7030; J7050; J7060; P9016-BL

== ENCOUNTER 2017-02-11 09:34 | Inpatient (IN) | payer MEDICARE, MEDICAID ==
[~2017-02-11] VITALS: Ht 148.6 cm; Wt 48.1 kg
[2017-02-11] VITALS (26 sets, daily range): BP systolic 87–148; BP diastolic 32–97
[~2017-02-11 09:34] MED LIST changes: +CARB1TAB60 PO; +RXGEN XX
--- NOTE | 2017-02-11 10:25 | NUR ---
Recieved pt to ed bed 02, pt was bb private ems from [facility] for shortness of breath. 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 Pt arrived on cont o2 at 3lpm via nc satting at 98%. Skin is warm and non diaphoretic.. all needs are attended, will continue to monitor
[2017-02-11 10:32] LABS: BASOPHILS % (AUTO) 0.3 % (0.0-2.0); EOSINOPHILS # (AUTO) 0.1 /CMM (0.0-0.7); EOSINOPHILS % (AUTO) 1.6 % (0.0-6.0); HEMATOCRIT 30 % (33-45); HEMOGLOBIN 9.6 g/dL (11.5-14.8); LYMPHOCYTES # (AUTO) 1.3 /CMM (0.8-4.8); LYMPHOCYTES % (AUTO) 13.9 % (20.0-44.0); MEAN CORPUSCULAR HEMOGLOBIN 30 PG (26.0-33.0); MEAN CORPUSCULAR HGB CONC 32 g/dl (31.0-36.0); MEAN CORPUSCULAR VOLUME 93 fL (82-100); MONOCYTES # (AUTO) 0.6 /CMM (0.1-1.30); MONOCYTES % (AUTO) 6.8 % (2.0-12.0); NEUTROPHILS # (AUTO) 7.2 /CMM (1.8-8.9); NEUTROPHILS % (AUTO) 77.4 % (43.0-81.0); PLATELET COUNT (AUTO) 297 /CMM (150-450); RDW COEFFICIENT OF VARIATION 18.9 (11.5-15.0); RED BLOOD CELL COUNT(AUTO) 3.22 MIL/uL (4.0-5.2); WHITE BLOOD COUNT (AUTO) 9.3 K/uL (4.3-11.0)
[2017-02-11 10:34] LABS: ABG BASE EXCESS 6.6 mmol/L; ABG OXYGEN SATURATION 97.7 % (92.0-98.5); ABG PCO2 70.5 mmHg (35.0-45.0); ABG PH 7.308 (7.350-7.450); ABG PO2 115.7 mmHg (75.0-100.0); COHb 0.8 % (0.5-1.5); MetHb 0.4 % (0.0-1.5); O2Hb 96.5 % (94.0-97.0); SITE, ABG Left Radial; VENT MODE, BG NASAL CANNULA
[2017-02-11 10:53] LABS: INR 0.97 (0.87-1.13); PROTHROMBIN TIME 10.1 SECS (9.5-12.7)
[2017-02-11 10:54] LABS: CARBON DIOXIDE 36 mmol/L (21-32); CHLORIDE 99 mmol/L (98-107); CREATININE 1.7 mg/dL (0.6-1.3); GLUCOSE 118 mg/dL (74-106); POTASSIUM 3.4 mmol/L (3.5-5.1); SODIUM SERUM 137 mmol/L (136-145); UREA NITROGEN, BLOOD 34 mg/dL (7-18)
[2017-02-11] MEDS ORDERED: FUROSEMIDE 40 MG/4 ML VIAL ONE (10:55)
--- NOTE | 2017-02-11 10:58 | NUR ---
Medicated as ordered.
[2017-02-11] MEDS ORDERED: FUROSEMIDE 40 MG/4 ML VIAL IV ONE (11:00)
[2017-02-11 11:01] LABS: TROPONIN I 0.034 ng/mL (0.00-0.056)
[2017-02-11 11:07] LABS: ALANINE AMINOTRANSFERASE 8 U/L (12-78); ALBUMIN 2.2 g/dL (3.4-5.0); ALKALINE PHOSPHATASE 127 U/L (46-116); ASPARTATE AMINOTRANSFERASE 17 U/L (15-37); B-TYPE NATRIURETIC PEPTIDE 21941 PG/ML (0-125); BILIRUBIN,DIRECT 0.1 mg/dL (0.0-0.2); BILIRUBIN,TOTAL 0.3 mg/dL (0.2-1.0); CALCIUM, SERUM 11.7 mg/dL (8.5-10.1); TOTAL PROTEIN, SERUM 6.9 g/dL (6.4-8.2)
--- NOTE | 2017-02-11 11:27 | NUR ---
PLACED PT ON BIPAP ORDERED. BIPAP SETTIN/5, RR 14, FIO2 30%.
--- NOTE | 2017-02-11 12:00 | NUR ---
TRANSFERRED TO FLOOR VIA ACLS PROTOCOL
--- NOTE | 2017-02-11 12:06 | NUR ---
INITIAL ELECTRONIC EQUIPMENT REPAIRMEN NOTE RCVD PT AWAKE AND ALERT, SHOWING NO S/O DISTRESS OR VERBALIZING ANY C/O PAIN. A-PACING IN TELE. LEFT FA #22 C/D/I/PATENT. NO S/O INFILTRATION/PHLEBITIS OBSERVED. IRMA AV SHUNT BRUIT/THRILL PRESENT. ON SIMPLE MASK DURING TRANSPORT. BIPAP STARTED IN ROOM. WOUNDS PRESENT PICTURES TAKEN PER POLICY. PT'S DAUGHTER PROVIDED PT'S HX. WILL CONTINUE TO MONITOR PT FOR SAFETY AND COMFORT. CALL LIGHT WITHIN REACH. BED IN LOW AND LOCKED POSITION.
[2017-02-11] MEDS ORDERED: MAGNESIUM HYDROXIDE 30 ML UDC PO PRN (13:00)
[2017-02-11] MEDS: PRAMIPEXOLE DI-HCL 0.25 MG TABLET PO SCH ×2 (13:00→17:45)
[2017-02-11] MEDS ORDERED: ONDANSETRON HCL/PF 4 MG/2 ML VIAL IVP PRN (13:00)
[2017-02-11] MEDS ORDERED: MAG HYDROX/AL HYDROX/SIMETH 30 ML UDC PO PRN (13:00)
[2017-02-11] MEDS ORDERED: ENOXAPARIN SODIUM 40 MG/0.4 ML DISP.SYRIN SQ SCH (13:00)
[2017-02-11] MEDS ORDERED: ZOLPIDEM TARTRATE 5 MG TABLET PO PRN (13:00)
[2017-02-11] MEDS ORDERED: HYDROCODONE/APAP 5/325MG 1 EACH TABLET PO PRN (13:00)
[2017-02-11] MEDS ORDERED: Z GUARD REMEDY 2 OZ OINT TP PRN (13:00)
[2017-02-11] MEDS ORDERED: HEPARIN SODIUM, PORCINE 5000 UNITS/1 ML VIAL SQ SCH (13:02)
[2017-02-11] MEDS: SEVELAMER CARBONATE 800 MG TABLET PO SCH ×2 (13:43→17:44)
[2017-02-11] MEDS: CARBIDOPA/LEV CR 50/200 MG 1 UDTAB.SA PO SCH ×2 (13:44→17:44)
[2017-02-11] MEDS: ACETAMINOPHEN 325 MG TABLET PO PRN (14:12)
--- NOTE | 2017-02-11 15:52 | NUR ---
MEDICATION DOCUMENTATION SPEC NOTE MEDICATION DISPENSED LATE, TO CLOSE TO NEXT SCHEDULED ADMINISTRATION.
[2017-02-11] MEDS: CALCIUM CARBONATE (1250) 500 MG TABLET PO SCH (17:55)
--- NOTE | 2017-02-11 17:56 | NUR ---
MEDICATION RN NOTE CA 11.7 OS-YAMINI HELD
--- NOTE | 2017-02-11 18:18 | NUR ---
NURSE EXAMINER NOTE PT REMAINS STABLE, OFF BIPAP MOST OF THE AFTERNOON TOLERATING O2 VIA NC. PT'S DAUGHTER AT BEDSIDE. CONTINUES TO PACE. DIALYSIS IN PROGRESS WITH HD RN AT BEDSIDE. PT'S CARE WILL BE ENDORSED TO RUG SIZER RN AT CHANGE OF SHIFT. BED IN LOW AND LOCKED POSITION. CALL LIGHT WITHIN REACH.
[2017-02-11] MEDS: RENAL NOVASOURCE (8OZ) 1 EA BOX PO SCH (18:23)
--- NOTE | 2017-02-11 19:30 | NUR ---
RN INITIAL NOTES RECEIVED THE PATIENT AWAKE ON BED, A/O X3, DAUGHTER AT BEDSIDE. ON 3L NASAL CANNULA, SATURATING WELL, NO S/S OF RESP DISTRESS. HD CURRENTLY ONGOING. PT IS A-PACING ON THE MONITOR, HR 60'S. ON DIAPERS ONLY. RIGHT UPPER ARM SHUNT INTACT. RIGHT FOREARM 22G FLUSHED AND PATENT, NO S/S OF INFILTRATION/INFECTION, DRESSING INTACT. MIDLINE TO BE PLACED BY PICC RN IN AM. BED LOW AND LOCKED, SIDERAILS UP, CALL LIGHT WITHIN REACH. WILL MONITOR
--- NOTE | 2017-02-11 20:30 | NUR ---
RN NOTES HD DONE WITH 1.5L OUTPUT
[2017-02-11] MEDS ORDERED: APIXABAN 2.5 MG TABLET PO SCH (21:00)
[2017-02-11] MEDS: APIXABAN 2.5 MG TABLET PO SCH (22:59)
[2017-02-12] VITALS (19 sets, daily range): BP systolic 105–134; BP diastolic 36–85
--- NOTE | 2017-02-12 | NUR ---
RN NOTES PATIENT AND PT'S DAUGHTER ARE REFUSING BIPAP OF THE MOMENT. DIMINISHED LUNG SOUNDS UPON AUSCULTATION BUT SATURATING WELL AND NO S/S OF RESP DISTRESS. CURRENTLY REMAINS TO BE ON 3L NASAL CANNULA
[2017-02-12 04:58] LABS: BASOPHILS # (AUTO) 0.1 /CMM (0.0-0.2); BASOPHILS % (AUTO) 0.6 % (0.0-2.0); HEMATOCRIT 26 % (33-45); HEMOGLOBIN 8.4 g/dL (11.5-14.8); LYMPHOCYTES # (AUTO) 1.4 /CMM (0.8-4.8); LYMPHOCYTES % (AUTO) 14.7 % (20.0-44.0); MEAN CORPUSCULAR HEMOGLOBIN 30 PG (26.0-33.0); MEAN CORPUSCULAR HGB CONC 32 g/dl (31.0-36.0); MEAN CORPUSCULAR VOLUME 92 fL (82-100); MONOCYTES # (AUTO) 0.7 /CMM (0.1-1.30); MONOCYTES % (AUTO) 6.6 % (2.0-12.0); NEUTROPHILS # (AUTO) 7.7 /CMM (1.8-8.9); NEUTROPHILS % (AUTO) 78.1 % (43.0-81.0); PLATELET COUNT (AUTO) 289 /CMM (150-450); RDW COEFFICIENT OF VARIATION 19.2 (11.5-15.0); RED BLOOD CELL COUNT(AUTO) 2.82 MIL/uL (4.0-5.2); WHITE BLOOD COUNT (AUTO) 9.8 K/uL (4.3-11.0)
[2017-02-12 05:13] LABS: CALCIUM, SERUM 11.4 mg/dL (8.5-10.1); CARBON DIOXIDE 35 mmol/L (21-32); CHLORIDE 99 mmol/L (98-107); CREATININE 1.5 mg/dL (0.6-1.3); GLUCOSE 77 mg/dL (74-106); MAGNESIUM 2.3 mg/dL (1.8-2.4); POTASSIUM 3.3 mmol/L (3.5-5.1); SODIUM SERUM 136 mmol/L (136-145); UREA NITROGEN, BLOOD 28 mg/dL (7-18)
--- NOTE | 2017-02-12 06:30 | NUR ---
RN CLOSING NOTES PT REMAINS STABLE OF THE MOMENT. OFF BIPAP THE WHOLE NIGHT, CURRENTLY ON 2L NASAL CANNULA, SATURATING WELL. AM CARE PROVIDED, ALL NEEDS MET. WILL ENDORSE CONTINUITY OF CARE TO AM RN
--- NOTE | 2017-02-12 07:10 | NUR ---
ICU INITIAL NOTE RECEIVED REPORT FROM NANCY, PT WAS RECEIVED IN BED, AWAKE, ABLE TO FOLLOW COMMANDS, ABLE TO MOVE ALL EXTREMITIES, PT IS ON 2L NC, SATING WELL, NO S/S OF RESP. DISTRESS OR SOB NOTED AT THIS TIME, PT IS ON BEDSIDE MONITOR SHOWING A PACING IN 60'S, NO C/O OF CHEST PAIN OR DISCOMFORT NOTED AT THIS TIME, PT HAS IRMA AV SHUNT, DRESSING C/D/I, RFA #22G, SL, C/D/I/PATENT, FLUSHING WELL, NO S/S OF INFECTION/ INFILTRATION NOTED AT THIS TIME, PT IS NOTED WITH MULTIPLE SKIN ISSUES NOTED, HD RN AT BEDSIDE, PT IS NOTED WITH MULTIPLE SKIN ISSUES, ALL SAFETY MEASURES IN PLACE AT ALL TIMES, CALL LIGHT WITHIN EASY REACH, WILL MONITOR PT CLOSELY FOR CHANGES
--- NOTE | 2017-02-12 08:00 | NUR ---
ICU NOTE DAUGHTER AT BEDSIDE, ALL QUESTIONS AND CONCERNS ANSWERED, DR. BUTTERFIELD AT BEDSIDE, ALL NEW ORDERS ACK AND WILL BE CARRIED OUT
[2017-02-12] MEDS: ACIDOPHILUS/BULGARICUS 1 EACH TAB.CHEW PO SCH (08:58)
[2017-02-12] MEDS: CARBIDOPA/LEV CR 50/200 MG 1 UDTAB.SA PO SCH ×3 (08:58→17:19)
[2017-02-12] MEDS: PROSOURCE / PROSTAT (PYXIS) 30 ML UDC GT SCH (08:58)
[2017-02-12] MEDS: SEVELAMER CARBONATE 800 MG TABLET PO SCH ×3 (08:58→17:18)
[2017-02-12] MEDS: AMIODARONE HCL 200 MG TABLET PO SCH (08:59)
[2017-02-12] MEDS: RENAL NOVASOURCE (8OZ) 1 EA BOX PO SCH ×2 (08:59→17:18)
[2017-02-12] MEDS: VALSARTAN 80 MG TABLET PO SCH (09:00)
[2017-02-12] MEDS: APIXABAN 2.5 MG TABLET PO SCH ×2 (09:00→17:00)
--- NOTE | 2017-02-12 09:01 | NUR ---
ICU NOTE DAUGHTER REFUSES ELIQUIS, STATES PT HASNT BEEN TAKEN THE MEDICATION IN OVER A WEEK, EDUCATED DAUGHTER ON RISK, PT VERBALIZED UNDERSTANDING
--- NOTE | 2017-02-12 09:30 | NUR ---
ICU NOTE BP MEDICATIONS WERE HELD, PT IS CURRENTLY RECEIVING HD AT THIS TIME, BP 113/43, HR 60
[2017-02-12] MEDS: ACETAMINOPHEN 325 MG TABLET PO PRN (09:57)
[2017-02-12] MEDS ORDERED: POTASSIUM CHLORIDE 20 MEQ TAB.PRT.SR PO SCH (10:00)
--- NOTE | 2017-02-12 10:00 | NUR ---
ICU NOTE 20 MEQ POTASSIUM REPLACED PER MD ORDER
--- NOTE | 2017-02-12 10:06 | NUR ---
icu note hd completed, 1.5l removed, bp 130/54, hr 60
[2017-02-12] MEDS: PRAMIPEXOLE DI-HCL 0.25 MG TABLET PO SCH ×3 (10:39→17:19)
[2017-02-12 12:33] LABS: ABG BASE EXCESS 9.9 mmol/L; ABG OXYGEN SATURATION 87.5 % (92.0-98.5); ABG PCO2 67.2 mmHg (35.0-45.0); ABG PO2 52.7 mmHg (75.0-100.0); AaDO2 38.5 mmHg; COHb 0.7 % (0.5-1.5); MetHb 1.1 % (0.0-1.5); O2Hb 85.9 % (94.0-97.0); SITE, ABG Left Radial; VENT MODE, BG 1.5LPM N/C
--- NOTE | 2017-02-12 14:00 | NUR ---
ICU NOTE REPORT GIVEN TO SAROJ GONZALES FOR ANDRA
[2017-02-12] MEDS: CALCIUM CARBONATE (1250) 500 MG TABLET PO SCH ×2 (17:19→17:40)
--- NOTE | 2017-02-12 19:30 | NUR ---
RN INITIAL NOTES RECEIVED PATIENT IN BED, AWAKE, ALERT AND ORIENTED X2, WITH FAMILY MEMBERS AT BEDSIDE, DEEPLY INVOLVED IN THE PATIENT'S CARE, REQUESTING FOR RIVAS CHAIR SO THAT 1 FAMILY MEMBER CAN STAY WITH THE PATIENT THROUGHOUT THE NIGHT. CHARGE NURSE CHIKI MADE AWARE OF THE PATIENT'S REQUEST. ON O2 VIA NC @ 2LPM, TOLERATING WELL, FREE FROM ANY S/S OF RESPIRATORY DISTRESS. PER THE PATIENT'S FAMILY MEMBERS, THEY WOULD LIEK TO HAVE THE PATIENT PLACED ON BIPAP AT 2100. WILL COORDINATE WITH THE RT STAFF. IV SITE PATENT AND INTACT, FLUSHED WITH NS, FREE FROM ANY S/S OF INFILTRATION OR PHLEBITIS. CALL LIGHT LEFT WITHIN EASY REACH, BED IN LOWEST AND LOCKED POSITION. WILL CONTINUE TO CLOSELY MONITOR.
--- NOTE | 2017-02-12 22:00 | NUR ---
RN NOTES PATIENT PLACED ON BIPAP, TOLERATING WELL, SLEEPING AT THIS TIME. WILL CONTINUE TO CLOSELY MONITOR
[2017-02-13] VITALS: BP 116/35
[2017-02-13 04:00] VITALS: BP 125/35
[2017-02-13 07:52] LABS: CALCIUM, SERUM 12.5 mg/dL (8.5-10.1); CARBON DIOXIDE 32 mmol/L (21-32); CHLORIDE 100 mmol/L (98-107); CREATININE 2.3 mg/dL (0.6-1.3); GLUCOSE 72 mg/dL (74-106); POTASSIUM 4.1 mmol/L (3.5-5.1); SODIUM SERUM 137 mmol/L (136-145); UREA NITROGEN, BLOOD 52 mg/dL (7-18)
--- NOTE | 2017-02-13 07:58 | NUR ---
DEXIGRAPH OPERATOR OPENING NOTE RECEIVED BEDSIDE SBAR REPORT. PATIENT IS A/O X3, AWAKE ALERT AND RESPONSIVE. FAMILY AT THE BEDSIDE. PATIENT DENIED PAIN/DISCOMFORT AT THIS TIME. PATIENT IS IN BED, BED IS LOCKED, IN LOWEST POSITION, SIDE RAILS UP X2, BED ALARM IS ON. CALL LIGHT WITHIN REACH. PATIENT/FAMILY EDUCATED TO USE THE CALL LIGHT TO CALL FOR ASSISTANCE. PATIENT/FAMILY VERBALIZED UNDERSTANDING OF THE TEACHINGS. ALL NEEDS MET AT THIS TIME. WILL CONTINUE TO ASSESS/MONITOR THROUGHOUT THE SHIFT.
[2017-02-13 08:00] VITALS: BP 115/39
[2017-02-13 08:13] LABS: BASOPHILS # (AUTO) 0.1 /CMM (0.0-0.2); BASOPHILS % (AUTO) 0.8 % (0.0-2.0); EOSINOPHILS # (AUTO) 0.4 /CMM (0.0-0.7); EOSINOPHILS % (AUTO) 3.2 % (0.0-6.0); HEMATOCRIT 28 % (33-45); HEMOGLOBIN 8.8 g/dL (11.5-14.8); LYMPHOCYTES # (AUTO) 1.8 /CMM (0.8-4.8); MEAN CORPUSCULAR HEMOGLOBIN 29 PG (26.0-33.0); MEAN CORPUSCULAR HGB CONC 32 g/dl (31.0-36.0); MEAN CORPUSCULAR VOLUME 92 fL (82-100); MONOCYTES # (AUTO) 0.8 /CMM (0.1-1.30); MONOCYTES % (AUTO) 7.5 % (2.0-12.0); NEUTROPHILS # (AUTO) 8.2 /CMM (1.8-8.9); NEUTROPHILS % (AUTO) 72.5 % (43.0-81.0); PLATELET COUNT (AUTO) 276 /CMM (150-450); RDW COEFFICIENT OF VARIATION 18.6 (11.5-15.0); RED BLOOD CELL COUNT(AUTO) 3.01 MIL/uL (4.0-5.2); WHITE BLOOD COUNT (AUTO) 11.3 K/uL (4.3-11.0)
[2017-02-13] MEDS: CARBIDOPA/LEV CR 50/200 MG 1 UDTAB.SA PO SCH ×3 (08:53→18:51)
[2017-02-13] MEDS: PRAMIPEXOLE DI-HCL 0.25 MG TABLET PO SCH ×3 (08:53→18:51)
[2017-02-13] MEDS: SEVELAMER CARBONATE 800 MG TABLET PO SCH ×3 (08:53→18:51)
[2017-02-13] MEDS: CINACALCET HCL 30 MG TABLET PO SCH (08:54)
[2017-02-13] MEDS: ACIDOPHILUS/BULGARICUS 1 EACH TAB.CHEW PO SCH (08:56)
[2017-02-13] MEDS: PROSOURCE / PROSTAT (PYXIS) 30 ML UDC GT SCH (08:57)
[2017-02-13] MEDS: AMIODARONE HCL 200 MG TABLET PO SCH (08:59)
[2017-02-13] MEDS: VALSARTAN 80 MG TABLET PO SCH (09:00)
[2017-02-13] MEDS: APIXABAN 2.5 MG TABLET PO SCH ×2 (09:00→17:00)
[2017-02-13] MEDS: RENAL NOVASOURCE (8OZ) 1 EA BOX PO SCH ×2 (09:17→18:55)
[2017-02-13 12:00] VITALS: BP 96/49
[2017-02-13 16:00] VITALS: BP 103/32
--- NOTE | 2017-02-13 17:51 | NUR ---
[employer] VICE PRESIDENT NOTE CAME TO ADMINISTER MEDICATIONS. PATIENT'S DAUGHTER ASKED TO COME BACK IN 20 MINUTES. WILL RETURN
[2017-02-13] MEDS: CALCIUM CARBONATE (1250) 500 MG TABLET PO SCH (18:00)
--- NOTE | 2017-02-13 19:50 | NUR ---
RN MS INITIAL NOTE PT RECEIVED IN NO ACUTE DISTRESS AT THIS TIME. A/O X2 UNABLE TO MAKE NEEDS KNOWN DURING ASSESSMENT BUT COULD BE RELATED TO TIREDNESS. PT HAS PACEMAKER A-PACING TO 60-80. PT HAD DIALYSIS TODAY WITH 1.2L OUT. RFA 22G AND IRMA AV SHUNT ARE INTACT WITH BRUIT/THRILL PRESENT FOR AV SHUNT. COMFORT AND SAFETY MEASURES TO BE ENSURED DURING THE SHIFT. WILL CONTINUE TO MONITOR FOR ANY CHANGES.
[2017-02-13 20:00] VITALS: BP 119/53
--- NOTE | 2017-02-13 20:00 | NUR ---
DIRECTOR PERIOPERATIVE CLOSING NOTE GAVE BEDSIDE SBAR REPORTTO THE MIXER TENDER NURSE. PATIENT IS A/O X3, AWAKE ALERT AND RESPONSIVE. FAMILY AT THE BEDSIDE. PATIENT DENIED PAIN/DISCOMFORT AT THIS TIME. PATIENT IS IN BED, BED IS LOCKED, IN LOWEST POSITION, SIDE RAILS UP X2, BED ALARM IS ON. CALL LIGHT WITHIN REACH. PATIENT/FAMILY EDUCATED TO USE THE CALL LIGHT TO CALL FOR ASSISTANCE. PATIENT/FAMILY VERBALIZED UNDERSTANDING OF THE TEACHINGS. ENDORSED TO THE MIXER TENDER NURSE FOR ANDRA.
[2017-02-14] VITALS: BP 119/53
[2017-02-14 04:00] VITALS: BP 132/51
--- NOTE | 2017-02-14 05:52 | NUR ---
RN MS CLOSING NOTE PT REMAINS IN NO ACUTE DISTRESS AT THIS TIME. FAMILY AT BEDSIDE FOR WHOLE NIGHT. PATIENT TOLERATED CARE AND IS COMFORTABLE IN BED. VITALS STABLE. WILL ENDORSE CARE TO AM NURSE.
[2017-02-14 07:30] LABS: BASOPHILS % (AUTO) 0.2 % (0.0-2.0); HEMATOCRIT 27 % (33-45); HEMOGLOBIN 8.7 g/dL (11.5-14.8); LYMPHOCYTES # (AUTO) 1.6 /CMM (0.8-4.8); LYMPHOCYTES % (AUTO) 11.3 % (20.0-44.0); MEAN CORPUSCULAR HEMOGLOBIN 30 PG (26.0-33.0); MEAN CORPUSCULAR HGB CONC 32 g/dl (31.0-36.0); MEAN CORPUSCULAR VOLUME 93 fL (82-100); MONOCYTES % (AUTO) 6.8 % (2.0-12.0); NEUTROPHILS # (AUTO) 11.6 /CMM (1.8-8.9); NEUTROPHILS % (AUTO) 81.7 % (43.0-81.0); PLATELET COUNT (AUTO) 332 /CMM (150-450); RDW COEFFICIENT OF VARIATION 18.4 (11.5-15.0); RED BLOOD CELL COUNT(AUTO) 2.87 MIL/uL (4.0-5.2); WHITE BLOOD COUNT (AUTO) 14.2 K/uL (4.3-11.0)
--- NOTE | 2017-02-14 07:30 | NUR ---
RN NOTES RECEIVED PATIENT IN BED ASLEEP WITH BREATHING NORMAL, EVEN AND UNLABORED. NO SOB NOTED. NO ACUTE DISTRESS NOTED. ON 3L O2 VIA NC, SATURATING WELL. IV LFA IS PATENT AND INTACT. NO INFILTRATION NOTED. BOWEL SOUND PRESENT. PULSES PRESENT. KEPT CLEAN, DRY AND COMFORTABLE. ALL NEEDS ATTENDED. SAFETY MEASURE OBSERVED. CALL LIGHT WITH IN REACH. WILL CONT TO MONITOR.
[2017-02-14 07:55] LABS: CALCIUM, SERUM 12.2 mg/dL (8.5-10.1); CARBON DIOXIDE 34 mmol/L (21-32); CHLORIDE 100 mmol/L (98-107); CREATININE 2.1 mg/dL (0.6-1.3); GLUCOSE 99 mg/dL (74-106); POTASSIUM 4.3 mmol/L (3.5-5.1); SODIUM SERUM 137 mmol/L (136-145); UREA NITROGEN, BLOOD 45 mg/dL (7-18)
[2017-02-14 08:00] VITALS: BP 113/38
--- NOTE | 2017-02-14 08:20 | NUR ---
WOUND CARE CONSULT: PT SLEEPING AT THIS TIME WITH RELATIVE AT BEDSIDE. WILL SEE PT PT CONDITION PERMITS. PT FOLLOWED BY SURGICAL TEAM. WOUND AND SKIN RECOMMENDATIONS MADE BASED ON PHOTO AND NURSING DOCUMENTATION. FIRST STEP MATTRESS ORDERED. ALL SKIN PROTECTION MEASURES IN PLACE. MD IN AGREEMENT WITH PLAN OF CARE.
[2017-02-14] MEDS ORDERED: HYDROGEL DRESSING 90 GM TUBE TP PRN (08:30)
[2017-02-14] MEDS: RENAL NOVASOURCE (8OZ) 1 EA BOX PO SCH ×2 (08:43→17:21)
[2017-02-14] MEDS: PROSOURCE / PROSTAT (PYXIS) 30 ML UDC GT SCH (08:44)
[2017-02-14] MEDS: PRAMIPEXOLE DI-HCL 0.25 MG TABLET PO SCH ×3 (08:45→17:22)
[2017-02-14] MEDS: SEVELAMER CARBONATE 800 MG TABLET PO SCH ×3 (08:45→17:22)
[2017-02-14] MEDS: APIXABAN 2.5 MG TABLET PO SCH ×2 (08:45→17:00)
[2017-02-14] MEDS: VALSARTAN 80 MG TABLET PO SCH (08:45)
[2017-02-14] MEDS: ACIDOPHILUS/BULGARICUS 1 EACH TAB.CHEW PO SCH (08:46)
[2017-02-14] MEDS: CARBIDOPA/LEV CR 50/200 MG 1 UDTAB.SA PO SCH ×3 (08:46→17:22)
--- NOTE | 2017-02-14 08:46 | NUR ---
WOUND CARE CONSULT: PT NOW AWAKE. WOUND AND SKIN ASSESSMENT DONE. 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 FIRST STEP MATTRESS TO BE PLACED. ALL SKIN PROTECTION AND WOUND RECOMMENDATIONS DISCUSSED WITH NURSING STAFF AND SURGICAL NAbby HARRIS. ALL SKIN PROTECTION MEASURES IN PLACE. WILL SEE PRN. ANTONIO IN AGREEMENT WITH PLAN OF CARE. Addendum: 02/14/17 at 0848 by LYNNE ASHBY WNDNU Amended: Links added.
[2017-02-14] MEDS: AMIODARONE HCL 200 MG TABLET PO SCH (08:47)
[2017-02-14] MEDS: HYDROGEL DRESSING 90 GM TUBE TP SCH (13:13)
[2017-02-14] MEDS ORDERED: ALBUMIN 25% 25 GM in PREMIX 1 EA IV ONE (13:30)
[2017-02-14 16:00] VITALS: BP 99/61
[2017-02-14] MEDS: ACETAMINOPHEN 325 MG TABLET PO PRN (16:02)
[2017-02-14] MEDS: CALCIUM CARBONATE (1250) 500 MG TABLET PO SCH (17:22)
--- NOTE | 2017-02-14 18:45 | NUR ---
RN NOTES PATIENT ENDORSED TO NEXT SHIFT IN STABLE CONDITION WITH BREATHING NORMAL, EVEN AND UNLABORED, NO SOB NOTED. NO ACUTE DISTRESS NOTED. KEPT CLEAN, DRY AND COMFORTABLE. ALL NEEDS ATTENDED. SAFETY MEASURE OBSERVED. CALL LIGHT WITH IN REACH. WILL CONT TO MONITOR.
--- NOTE | 2017-02-14 20:00 | NUR ---
RECEIVED PATIENT IN BED WITH DAUGHTER AT THE BEDSIDE. PATIENT IS RELAXING, NO DISTRESS NOTED. EDUCATION/ INSTRUCTIONS GIVEN TO THE DAUGHTER, QUESTIONS ANSWERED. PATIENT TURNED, REPOSITIONED AT THIS TIME. SAFETY MEASURES IMPLEMENTED. CONTINUE TO MONITOR
[2017-02-14 21:00] VITALS: BP 97/36
[2017-02-15 05:00] VITALS: BP 116/47
--- NOTE | 2017-02-15 07:20 | NUR ---
RN NOTES RECEIVED PT FROM PHARMACY TECHNICIAN PER DIEM RESTING IN BED A&0X1, LETHARGIC, WITH DAUGHTER AT BEDSIDE. ON 3L NC NO SOB OR DISTRESS NOTED. LFA 22 GAUGE IV SITE DRY AND INTACT NO IVF. BED LOCKED AND IN LOWEST POSITION, SIDE RAILS UPX3, CALL LIGHT WITHIN REACH, WILL CONT TO MONITOR.
[2017-02-15 08:00] VITALS: BP 123/78
[2017-02-15 08:08] LABS: BASOPHILS % (AUTO) 0.4 % (0.0-2.0); EOSINOPHILS # (AUTO) 0.3 /CMM (0.0-0.7); EOSINOPHILS % (AUTO) 2.6 % (0.0-6.0); HEMATOCRIT 29 % (33-45); HEMOGLOBIN 9.1 g/dL (11.5-14.8); LYMPHOCYTES # (AUTO) 1.8 /CMM (0.8-4.8); LYMPHOCYTES % (AUTO) 16.2 % (20.0-44.0); MEAN CORPUSCULAR HEMOGLOBIN 30 PG (26.0-33.0); MEAN CORPUSCULAR HGB CONC 32 g/dl (31.0-36.0); MEAN CORPUSCULAR VOLUME 93 fL (82-100); MONOCYTES # (AUTO) 0.8 /CMM (0.1-1.30); MONOCYTES % (AUTO) 6.7 % (2.0-12.0); NEUTROPHILS # (AUTO) 8.4 /CMM (1.8-8.9); NEUTROPHILS % (AUTO) 74.1 % (43.0-81.0); PLATELET COUNT (AUTO) 298 /CMM (150-450); RDW COEFFICIENT OF VARIATION 18.1 (11.5-15.0); WHITE BLOOD COUNT (AUTO) 11.3 K/uL (4.3-11.0)
[2017-02-15 08:17] LABS: CARBON DIOXIDE 29 mmol/L (21-32); CHLORIDE 101 mmol/L (98-107); CREATININE 2.2 mg/dL (0.6-1.3); GLUCOSE 83 mg/dL (74-106); MAGNESIUM 2.7 mg/dL (1.8-2.4); PHOSPHORUS 5.2 mg/dL (2.5-4.9); POTASSIUM 4.7 mmol/L (3.5-5.1); SODIUM SERUM 139 mmol/L (136-145); UREA NITROGEN, BLOOD 50 mg/dL (7-18)
[2017-02-15 08:19] LABS: CALCIUM, SERUM 14.9 mg/dL (8.5-10.1)
[2017-02-15] MEDS: SEVELAMER CARBONATE 800 MG TABLET PO SCH ×3 (08:31→18:25)
[2017-02-15] MEDS: CARBIDOPA/LEV CR 50/200 MG 1 UDTAB.SA PO SCH ×3 (08:31→16:54)
[2017-02-15] MEDS: PROSOURCE / PROSTAT (PYXIS) 30 ML UDC GT SCH (08:31)
[2017-02-15] MEDS: PRAMIPEXOLE DI-HCL 0.25 MG TABLET PO SCH ×3 (08:32→16:54)
[2017-02-15] MEDS: ACIDOPHILUS/BULGARICUS 1 EACH TAB.CHEW PO SCH (08:32)
[2017-02-15] MEDS: CINACALCET HCL 30 MG TABLET PO SCH (08:32)
[2017-02-15] MEDS: AMIODARONE HCL 200 MG TABLET PO SCH (08:33)
[2017-02-15] MEDS: HYDROGEL DRESSING 90 GM TUBE TP SCH (08:34)
[2017-02-15] MEDS: RENAL NOVASOURCE (8OZ) 1 EA BOX PO SCH ×2 (08:35→16:55)
[2017-02-15] MEDS: APIXABAN 2.5 MG TABLET PO SCH ×2 (09:00→16:55)
[2017-02-15] MEDS: VALSARTAN 80 MG TABLET PO SCH (09:00)
[2017-02-15 09:11] VITALS: BP 131/76
[2017-02-15] MEDS ORDERED: ALBUMIN 25% 25 GM in PREMIX 1 EA IV ONE (12:30)
[2017-02-15 16:00] VITALS: BP_SYST 100; BP_SYST 123; BP_DIAS 27; BP_DIAS 78
[2017-02-15] MEDS: CALCIUM CARBONATE (1250) 500 MG TABLET PO SCH (17:23)
--- NOTE | 2017-02-15 18:32 | NUR ---
RN NOTES PT REMAINED IN STABLE CONDITION THROUGHOUT THE SHIFT, TOLERATED HD. ALL NEEDS MET, NO SIGNIFICANT CHANGES. TOLERATED MEDICATIONS. CALL LIGHT WITHIN REACH, SIDE RAILS UPX3, BED LOCKED AND IN LOWEST POSITION, DAUGHTER AT BEDSIDE. WILL ENDORSE TO ONCOMING SHIFT.
--- NOTE | 2017-02-15 19:45 | NUR ---
RN INITIAL NOTE RECEIVED PT IN NO ACUTE DISTRESS IN BED. PT IS A/O X 1 AND HAS FAMILY AT BEDSIDE. PT IS ON O2 VIA NC @ 3LPM AND TOLERATING WELL WITH O2 SAT @ 99%. PT NOT C/O ANY SOB, DIFFICULTY BREATHING OR PAIN AT THIS TIME. PT HAS LFA 22G THAT IS CLEAN DRY INTACT AND PATENT WITH SALINE FLUSH. IV IS SALINE LOCKED. PT HAS IRMA AV FISTULA THAT IS CLEAN DRY AND INTACT WITH POSITIVE BRUIT AND THRILL. BED IN LOW LOCK POSITION WITH RIALS UP X 2. CALL LIGHT WITHIN REACH AND ALL SAFETY MEASURES ENSURED AND CARRIED OUT. WILL CONTINUE TO MONITOR PT.
[2017-02-15 21:00] VITALS: BP 98/35
[2017-02-16] VITALS (14 sets, daily range): BP systolic 88–118; BP diastolic 32–42
[2017-02-16 05:04] LABS: APPEARANCE,URINE CLOUDY (CLEAR); BILIRUBIN,URINE NEGATIVE (NEGATIVE); BLOOD, URINE 2+ Ery/uL (NEGATIVE); COLOR,URINE YELLOW (YELLOW); KETONES,URINE NEGATIVE (NEGATIVE); LEUKOCYTE ESTERASE ,URINE 3+ (NEGATIVE); NITRITE, URINE NEGATIVE (NEGATIVE); PH,URINE 6.5 (5.0-8.0); PROTEIN,URINE 2+ mg/dl (NEGATIVE); UGLUCOSE NEGATIVE (NEGATIVE); UROBILINOGEN,URINE 0.2 EU/dL (0.2)
[2017-02-16 05:17] LABS: RBC,URINE 21-50 /HPF (0-2)
[2017-02-16 05:18] LABS: BACTERIA,URINE Many /HPF (None Seen); SQUAMOUS EPITHELIAL CELL,UR Moderate /HPF (None Seen); WBC,URINE 81-100 /HPF (0-3)
--- NOTE | 2017-02-16 06:35 | NUR ---
RN CLOSING NOTE PT REMAINS IN NO ACUTE DISTRESS IN BED. PT DID NOT HAVE ANY SIGNIFICANT CHANGE IN CONDITION DURING SHIFT. ALL NEEDS MET, ALL ORDERS CARRIED OUT. WILL ENDORSE CARE TO AM RN FOR CONTINUITY OF CARE.
[2017-02-16] MEDS ORDERED: ANESTHESIA TRAY IN PYXIS 1 EA TRAY MC ONE (07:33)
[2017-02-16 07:37] LABS: BASOPHILS % (AUTO) 0.2 % (0.0-2.0); EOSINOPHILS % (AUTO) 0.1 % (0.0-6.0); HEMATOCRIT 27 % (33-45); HEMOGLOBIN 8.6 g/dL (11.5-14.8); LYMPHOCYTES # (AUTO) 1.8 /CMM (0.8-4.8); LYMPHOCYTES % (AUTO) 12.5 % (20.0-44.0); MEAN CORPUSCULAR HEMOGLOBIN 30 PG (26.0-33.0); MEAN CORPUSCULAR HGB CONC 32 g/dl (31.0-36.0); MEAN CORPUSCULAR VOLUME 94 fL (82-100); MONOCYTES # (AUTO) 0.7 /CMM (0.1-1.30); MONOCYTES % (AUTO) 5.1 % (2.0-12.0); NEUTROPHILS % (AUTO) 82.1 % (43.0-81.0); PLATELET COUNT (AUTO) 337 /CMM (150-450); RDW COEFFICIENT OF VARIATION 18.1 (11.5-15.0); RED BLOOD CELL COUNT(AUTO) 2.91 MIL/uL (4.0-5.2); WHITE BLOOD COUNT (AUTO) 14.6 K/uL (4.3-11.0)
--- NOTE | 2017-02-16 07:45 | NUR ---
RN NOTES: PATIENT RECEIVED IN STABLE CONDITION ALERT AWAKE, LETHARGIC, NON VERBAL AT TIME OF INITIAL ASSESSMENT. OPEN EYES TO VERBAL & TACTILE STIMULI. DAUGHTER AT BEDSIDE. ON 3LPM OXYGEN VIA NC. IV SITE INTACT, DRESSING DRY & INTACT. SALINE LOCK. NOTED RIGHT UPPER ARM AV FISTULA. SAFETY MEASURES. CONTINUE TO MONITOR.
[2017-02-16] MEDS: RENAL NOVASOURCE (8OZ) 1 EA BOX PO SCH ×2 (08:00→17:00)
[2017-02-16] MEDS: SEVELAMER CARBONATE 800 MG TABLET PO SCH ×3 (08:00→17:35)
[2017-02-16 08:21] LABS: CARBON DIOXIDE 32 mmol/L (21-32); CHLORIDE 100 mmol/L (98-107); CREATININE 2.5 mg/dL (0.6-1.3); GLUCOSE 86 mg/dL (74-106); POTASSIUM 4.9 mmol/L (3.5-5.1); SODIUM SERUM 137 mmol/L (136-145); UREA NITROGEN, BLOOD 52 mg/dL (7-18)
[2017-02-16 08:26] LABS: CALCIUM, SERUM 14.2 mg/dL (8.5-10.1)
[2017-02-16] MEDS: PROSOURCE / PROSTAT (PYXIS) 30 ML UDC GT SCH (08:28)
[2017-02-16] MEDS: AMIODARONE HCL 200 MG TABLET PO SCH (08:28)
[2017-02-16] MEDS: VALSARTAN 80 MG TABLET PO SCH (08:28)
[2017-02-16] MEDS: PRAMIPEXOLE DI-HCL 0.25 MG TABLET PO SCH ×3 (08:29→17:00)
[2017-02-16] MEDS: CARBIDOPA/LEV CR 50/200 MG 1 UDTAB.SA PO SCH ×3 (08:29→17:00)
[2017-02-16] MEDS: APIXABAN 2.5 MG TABLET PO SCH ×2 (08:29→17:00)
[2017-02-16] MEDS: ACIDOPHILUS/BULGARICUS 1 EACH TAB.CHEW PO SCH (08:29)
[2017-02-16] MEDS: HYDROGEL DRESSING 90 GM TUBE TP SCH (08:29)
--- NOTE | 2017-02-16 12:00 | NUR ---
RN NOTES: PT CAME BACK FROM OR S/P RIGHT SIDE PLEUREX CATHETER, DRESSING INTACT. REMOVED 1 LITER OUT IN OR. SUPPLIES AT BEDSIDE. CONTINUE TO MONITOR.
[2017-02-16] MEDS ORDERED: MEROPENEM 1 G in IV NS 0.9% 100 ML IV SCH (13:00)
[2017-02-16] MEDS ORDERED: IV D5/ 0.9% NACL 1,000 ML IV PRN (13:58)
[2017-02-16] MEDS: MEROPENEM 500 MG in IV NS 0.9% 50 ML IV SCH (14:51)
--- NOTE | 2017-02-16 16:11 | NUR ---
RN NOTES: RESUMED PREVIOUS DIET PER DR. KINGSLEY'S ORDER.
[2017-02-16] MEDS ORDERED: HYDROMORPHONE 1 MG/1 ML DISP.SYRIN IV PRN (16:30)
--- NOTE | 2017-02-16 17:35 | NUR ---
RN NOTES; PT NOTED LETHARGIC. PER DAUGHTER HOLD ALL MEDICATION AT THIS TIME. & DAUGHTER REFUSED TO GET DIALYSIS HER MOTHER DUE TO, SHE DOES NOT LIKE RN (DIALYSIS) BEL. CHARGE NURSE AWARE, CALLED DIALYSIS DEPARTMENT & WILL DO TOMORROW.
--- NOTE | 2017-02-16 18:20 | NUR ---
RT PT APPEARS TO BE LETHARGIC, ABG DONE AND RESULTS NOTIFIED TO CALEB ROQUE NP. PT PLACED ON BIPAP WITH NOTED SETTINGS. ALARMS ARE SET AND AUDIBLE WITH BVM BY BEDSIDE. BIPAP IS PLUGGED INTO RED OUTLET. FAMILY AND CALEB ELECTRICAL SOLDERER BY BEDSIDE. ABG 1 HOUR AFTER BEING PLACED ON BIPAP. WILL ENDORSE TO ONCOMING SHIFT. Addendum: 02/16/17 at 1837 by JANAE HERRERA RT Amended: Links added.
--- NOTE | 2017-02-16 18:30 | NUR ---
RN NOTES: PT NOTED LETHARGIC, VITAL SIGNS STABLE O2 SAT 99-100%, ORDERED ABG, RESULTED PCO2 83.1, CALEB PIECE CUTTER AT BEDSIDE, RECEIVED ORDERS FOR BIPAP & TRANSFER TO ICU. DAUGHTER AT BEDSIDE. WILL CARRIED ORDERS.
--- NOTE | 2017-02-16 19:10 | NUR ---
RN NOTES: PT TRANSFER TO ICU WITH ACLS PROTOCOL, WITH RT, WITH STABLE VITAL SIGNS. REPORT GIVEN AT BEDSIDE TO LEORA KYLE FOR CONTINUITY OF CARE. DAUGHTER AT BEDSIDE.
--- NOTE | 2017-02-16 19:30 | NUR ---
OFFICE CORRESPONDENT: RECEIVED PT ON BIPAP MACHINE AND TOLERATING SETTINGS ORDERED. NO ACUTE DISTRESS. LETHARGIC, ABLE TO FOLLOW SIMPLE COMMANDS AT TIMES. A-PACING ON OPERATIONS BOARDMAN. LEFT FA IV INFUSING D5NS AT 60ML/HR. IRMA AV FISTULA WT BRUIT AND THRILL NOTED. DAUGHTER AT BEDSIDE. HOB AT 35 DEGREES. SAFETY PRECAUTION NOTED. WILL CONTINUE TO MONITOR.
--- NOTE | 2017-02-16 21:20 | NUR ---
FRUIT HARVESTER MACHINE OPERATOR: PT GETTING RESTLESS AND VERBALIZED SHE WANTED TO BE OFF BIPAP. DAUGHTER AT BEDSIDE REQUESTED RT TO GIVE PT A BREAK FROM BIPAP. PLACED ON 2L 02 VIA NC. NO ACUTE DISTRESS. WILL CONTINUE TO MONITOR.
--- NOTE | 2017-02-16 23:25 | NUR ---
GYMNASTIC TEACHER: PT'S DAUGHTER ASKED RT FOR PT TO BE PLACED BACK ON BIPAP MACHINE. NO ACUTE DISTRESS. NO C/O PAIN OR EVIDENCE OF DISCOMFORT. PT ABLE TO FOLLOW SIMPLE COMMANDS YET MORE DROWSY AT THIS TIME. WILL CONTINUE TO MONITOR.
[2017-02-17] VITALS (46 sets, daily range): BP systolic 73–137; BP diastolic 29–80
[2017-02-17] MEDS: MEROPENEM 500 MG in IV NS 0.9% 50 ML IV SCH ×2 (01:00→13:53)
--- NOTE | 2017-02-17 02:27 | NUR ---
STONE DRESSER: PER DAUGHTER, PT WANTS TO BE OFF BIPAP MACHINE. PLACED ON 2L 02 VIA NC. HOB ELEVATED AT 45 DEGREES. WILL CONTINUE TO MONITOR.
--- NOTE | 2017-02-17 03:30 | NUR ---
DELIVERY NURSE: PT AGITATED, CONFUSED AND WT RESTLESSNESS M/B TRYING TO PULL OUT IV. DAUGHTER AT BEDSIDE WAS TOLD THAT PT HAS TO BE PLACED BACK ON BIPAP MACHINE. DAUGHTER SAID NOT AT THIS TIME BECAUSE SHE WILL BE MORE AGITATED. EXPLAINED RISKS AND BENEFITS BUT SAID SHE WILL TRY TO TALK TO THE PT AND HOLD OFF BIPAP. QUINCY CHARGE NURSE MADE AWARE. REPOSITIONED FOR COMFORT. SAFETY PRECAUTION NOTED.
--- NOTE | 2017-02-17 06:15 | NUR ---
FAMILY DENTIST: PT SATURATING WELL WHEN OFF BIPAP AT ABOVE 96%. ORAL SUCTIONING DONE WT SMALL AMT. OF GARCIA SECRETIONS, TOLERATED WELL. NO LABORED BREATHING. NO ACUTE DISTRESS. PLACED ON 1L 02 VIA NC PER DAUGHTER'S REQUEST. PT IS MORE ALERT AT THIS TIME, VERBALLY RESPONSIVE WT INTERMITTENT CONFUSIONS. A-PACING ON ADMISSIONS COORDINATOR. REMAINED AFEBRILE. PLEURX CATHETER DRESSING REMAINED CLEAN, DRY AND INTACT. BRUIT AND THRILL NOTED ON IRMA AV FISTULA. CONTINUE ON D5NS IV INFUSION AT 60ML/HR WT NO S/S OF INFILTRATION ON LT. FA IV SITE. TURNED AND REPOSITIONED FOR COMFORT. GOOD SKIN CARE RENDERED. DAUGHTER CONTINUED TO REFUSE SCD PUMPS DESPITE EXPLANATION OF RISKS AND BENEFITS. ALL NEEDS MET. HOB AT 35 DEGREES. WILL CONTINUE TO MONITOR.
--- NOTE | 2017-02-17 06:30 | NUR ---
DIESEL INSPECTOR: SEEN AND EXAMINED BY DR. MOJICA. DAUGHTER AT BEDSIDE. AWAITING ORDERS.
[2017-02-17 07:21] LABS: SITE, ABG Left Radial
[2017-02-17 07:28] LABS: ABG BASE EXCESS 6.1 mmol/L; ABG OXYGEN SATURATION 90.3 % (92.0-98.5); ABG PCO2 67.1 mmHg (35.0-45.0); ABG PH 7.316 (7.350-7.450); ABG PO2 58.3 mmHg (75.0-100.0); AaDO2 40.3 mmHg; COHb 0.5 % (0.5-1.5); MetHb 1.3 % (0.0-1.5); O2Hb 88.7 % (94.0-97.0); VENT MODE, BG ST 15/5 40% BR 14
--- NOTE | 2017-02-17 07:36 | NUR ---
INSULATION BOARD CALENDER OPERATOR RECEIVED PATIENT FROM THE PREVIOUS SHIFT. PATIENT IS IN BED. RESTING COMFORTABLY. NO ACUTE DISTRESS NOTED. LETHARGIC, BUT AROUSABLE. ON 1L NASAL CANNULA. STABLE VITAL SINGS. TURNED AND REPOSITIONED FOR COMFORT AND WOUND PREVENTION. WILL CONTINUE TO MONITOR AND PROVIDE CARE.
[2017-02-17 07:37] LABS: EOSINOPHILS # (AUTO) 0.3 /CMM (0.0-0.7); HEMATOCRIT 26 % (33-45); HEMOGLOBIN 8.4 g/dL (11.5-14.8); LYMPHOCYTES # (AUTO) 1.5 /CMM (0.8-4.8); LYMPHOCYTES % (AUTO) 9.7 % (20.0-44.0); MEAN CORPUSCULAR HEMOGLOBIN 30 PG (26.0-33.0); MEAN CORPUSCULAR HGB CONC 32 g/dl (31.0-36.0); MEAN CORPUSCULAR VOLUME 93 fL (82-100); MONOCYTES # (AUTO) 0.5 /CMM (0.1-1.30); MONOCYTES % (AUTO) 3.1 % (2.0-12.0); NEUTROPHILS # (AUTO) 13.3 /CMM (1.8-8.9); NEUTROPHILS % (AUTO) 85.2 % (43.0-81.0); PLATELET COUNT (AUTO) 347 /CMM (150-450); RDW COEFFICIENT OF VARIATION 18.1 (11.5-15.0); WHITE BLOOD COUNT (AUTO) 15.6 K/uL (4.3-11.0)
[2017-02-17 07:54] LABS: ALANINE AMINOTRANSFERASE 9 U/L (12-78); ALBUMIN 2.7 g/dL (3.4-5.0); ALKALINE PHOSPHATASE 119 U/L (46-116); ASPARTATE AMINOTRANSFERASE 16 U/L (15-37); BILIRUBIN,TOTAL 0.3 mg/dL (0.2-1.0); CARBON DIOXIDE 29 mmol/L (21-32); CHLORIDE 104 mmol/L (98-107); CREATININE 3.3 mg/dL (0.6-1.3); GLUCOSE 91 mg/dL (74-106); MAGNESIUM 2.7 mg/dL (1.8-2.4); PHOSPHORUS 5.4 mg/dL (2.5-4.9); POTASSIUM 4.9 mmol/L (3.5-5.1); SODIUM SERUM 139 mmol/L (136-145); TOTAL PROTEIN, SERUM 7.1 g/dL (6.4-8.2); UREA NITROGEN, BLOOD 69 mg/dL (7-18)
[2017-02-17] MEDS: PRAMIPEXOLE DI-HCL 0.25 MG TABLET PO SCH ×3 (09:00→16:46)
[2017-02-17] MEDS: ACIDOPHILUS/BULGARICUS 1 EACH TAB.CHEW PO SCH (09:25)
[2017-02-17] MEDS: AMIODARONE HCL 200 MG TABLET PO SCH (09:25)
[2017-02-17] MEDS: PROSOURCE / PROSTAT (PYXIS) 30 ML UDC GT SCH (09:25)
[2017-02-17] MEDS: SEVELAMER CARBONATE 800 MG TABLET PO SCH ×3 (09:25→16:46)
[2017-02-17] MEDS: CARBIDOPA/LEV CR 50/200 MG 1 UDTAB.SA PO SCH ×3 (09:25→16:46)
[2017-02-17] MEDS: HYDROGEL DRESSING 90 GM TUBE TP SCH (09:27)
[2017-02-17] MEDS: RENAL NOVASOURCE (8OZ) 1 EA BOX PO SCH ×2 (09:28→16:46)
[2017-02-17] MEDS: APIXABAN 2.5 MG TABLET PO SCH ×2 (09:30→16:59)
[2017-02-17] MEDS: CINACALCET HCL 30 MG TABLET PO SCH (09:30)
--- NOTE | 2017-02-17 12:06 | NUR ---
CUSTODIAL SERVICES MANAGER PATIENT IS IN BED. PATIENT NOTED TO BE LETHARGIC. IT IS UNSAFE TO FEED OR GIVE MEDS PO AT THIS TIME. MEDS HELD. FAMILY AWARE.
[2017-02-17 13:54] LABS: ABG BASE EXCESS 11.3 mmol/L; ABG OXYGEN SATURATION 89.6 % (92.0-98.5); ABG PCO2 47.5 mmHg (35.0-45.0); ABG PH 7.495 (7.350-7.450); ABG PO2 51.9 mmHg (75.0-100.0); AaDO2 84.4 mmHg; COHb 1.1 % (0.5-1.5); MetHb 1.2 % (0.0-1.5); O2Hb 87.5 % (94.0-97.0); SITE, ABG Right Radial
[2017-02-17] MEDS ORDERED: ALBUMIN 25% 25 GM in PREMIX 1 EA IV ONE (14:00)
--- NOTE | 2017-02-17 14:06 | NUR ---
COPY ROOM TECHNICIAN PER DIALYSIS NURSE, PATIENT RECEIVED 300 ML FLUID DURING DIALYSIS TREATMENT.
[2017-02-17] MEDS: ACETAMINOPHEN 325 MG TABLET PO PRN (18:11)
--- NOTE | 2017-02-17 20:56 | NUR ---
ICU/BUMBOATER PT PLACED ON BIPAP PER DAUGHTER REQUEST.
--- NOTE | 2017-02-17 23:06 | NUR ---
ICU/TASSEL SNIPPER PT REQUEST TO BE TAKEN OFF BIPAP. PT PLACED ON 1.5L NC. PT HAD SMALL BM. ERIC CARE GIVEN PARTIAL LINEN CHANGE. PT TOLERATED WELL WILL CONTINUE TO MONITOR.
[2017-02-18] VITALS (28 sets, daily range): BP systolic 101–156; BP diastolic 35–95
[2017-02-18] MEDS: MEROPENEM 500 MG in IV NS 0.9% 50 ML IV SCH ×2 (01:33→12:14)
[2017-02-18 05:05] LABS: BASOPHILS % (AUTO) 0.1 % (0.0-2.0); EOSINOPHILS # (AUTO) 0.4 /CMM (0.0-0.7); EOSINOPHILS % (AUTO) 3.2 % (0.0-6.0); HEMATOCRIT 25 % (33-45); HEMOGLOBIN 7.9 g/dL (11.5-14.8); LYMPHOCYTES # (AUTO) 1.2 /CMM (0.8-4.8); LYMPHOCYTES % (AUTO) 10.5 % (20.0-44.0); MEAN CORPUSCULAR HEMOGLOBIN 30 PG (26.0-33.0); MEAN CORPUSCULAR HGB CONC 32 g/dl (31.0-36.0); MEAN CORPUSCULAR VOLUME 93 fL (82-100); MONOCYTES # (AUTO) 0.6 /CMM (0.1-1.30); MONOCYTES % (AUTO) 5.1 % (2.0-12.0); NEUTROPHILS # (AUTO) 9.3 /CMM (1.8-8.9); NEUTROPHILS % (AUTO) 81.1 % (43.0-81.0); PLATELET COUNT (AUTO) 319 /CMM (150-450); RDW COEFFICIENT OF VARIATION 18.4 (11.5-15.0); RED BLOOD CELL COUNT(AUTO) 2.64 MIL/uL (4.0-5.2); WHITE BLOOD COUNT (AUTO) 11.5 K/uL (4.3-11.0)
[2017-02-18 05:13] LABS: CALCIUM, SERUM 11.7 mg/dL (8.5-10.1); CARBON DIOXIDE 36 mmol/L (21-32); CHLORIDE 97 mmol/L (98-107); GLUCOSE 76 mg/dL (74-106); POTASSIUM 3.6 mmol/L (3.5-5.1); SODIUM SERUM 135 mmol/L (136-145); UREA NITROGEN, BLOOD 48 mg/dL (7-18)
[2017-02-18] MEDS: RENAL NOVASOURCE (8OZ) 1 EA BOX PO SCH ×2 (08:27→17:23)
[2017-02-18] MEDS: HYDROGEL DRESSING 90 GM TUBE TP SCH (08:27)
[2017-02-18] MEDS: PROSOURCE / PROSTAT (PYXIS) 30 ML UDC GT SCH (08:27)
[2017-02-18] MEDS: PRAMIPEXOLE DI-HCL 0.25 MG TABLET PO SCH ×3 (08:35→17:23)
[2017-02-18] MEDS: CARBIDOPA/LEV CR 50/200 MG 1 UDTAB.SA PO SCH ×3 (08:35→17:24)
[2017-02-18] MEDS: ACETAMINOPHEN 325 MG TABLET PO PRN ×2 (08:35→14:50)
[2017-02-18] MEDS: SEVELAMER CARBONATE 800 MG TABLET PO SCH ×3 (08:35→17:24)
[2017-02-18] MEDS: AMIODARONE HCL 200 MG TABLET PO SCH (08:36)
[2017-02-18] MEDS: ACIDOPHILUS/BULGARICUS 1 EACH TAB.CHEW PO SCH (08:36)
[2017-02-18] MEDS: APIXABAN 2.5 MG TABLET PO SCH ×2 (08:38→17:24)
--- NOTE | 2017-02-18 14:40 | NUR ---
RN NOTES RECEIVED PT FROM ICU WITH DAUGHTER AT BEDSIDE. PT ON 1.5 L O2 VIA NASAL CANNULA. ALYSSA MIDLINE INTACT AND PATENT. SAFETY MEASURES ARE IN PLACE, CALL LIGHT IS IN REACH. WILL CONTINUE TO MONITOR
--- NOTE | 2017-02-18 14:43 | NUR ---
COMMERCIAL LEASING AGENT TRANSFERRED THE PATIENT TO [facility] LEVEL OF CARE ON STABLE CONDITIONS.
--- NOTE | 2017-02-18 18:44 | NUR ---
RN NOTES PT IS SITTING UP COMFORTABLY IN BED, WITH FAMILY AT BEDSIDE. PT IS ON 1.5L O2 VIA NASAL CANNULA, RESPIRATIONS ARE EVEN AND UNLABORED. ALYSSA MIDLINE INTACT AND PATENT. SKIN CARE AND WOUND CARE PROVIDED FOR PT. ALL MEDS WERE GIVEN ORDERED. SAFETY MEASURES ARE IN PLACE, CALL LIGHT IS IN REACH. WILL ENDORSE TO ENGRAVING SUPERVISOR RN FOR CONTINUITY OF CARE.
--- NOTE | 2017-02-18 19:30 | NUR ---
RN NOTES RECEIVED PATIENT IN BED ASLEEP, EASILY AROUSABLE. AO X 2, ABLE TO MAKE NEEDS KNOWN. NO ACUTE DISTRESS NOTED. DENIES ANY PAIN AT THIS TIME. IV SITE PATENT, INTACT; FLUSHED. IRMA AV SHUNT INTACT; WITH BRUIT/THRILL. RIGHT LATERAL LOWER CHEST PLEURX CATHETER UNDER DRESSING; INTACT; NOT DRAINING. SAFETY REMINDERS GIVEN. ON CONTACT ISOLATION FOR K. PNE ESBL POS IN URINE. ON LOW BED WITH BILATERAL UPPER SIDE RAIL UP. CALL LIGHT WITHIN EASY REACH. DAUGHTER AT BEDSIDE. WILL CONTINUE TO MONITOR.
[2017-02-19] MEDS: MEROPENEM 500 MG in IV NS 0.9% 50 ML IV SCH ×2 (01:22→13:36)
[2017-02-19] MEDS: ACETAMINOPHEN 325 MG TABLET PO PRN ×2 (02:18→16:08)
--- NOTE | 2017-02-19 06:04 | NUR ---
RN NOTES PATIENT AWAKE, RESPIRATIONS EVEN. DENIES ANY PAIN AT THIS TIME. DUE MED GIVEN WITH NO ASE NOTED. NEEDS ATTENDED. SAFETY PRECAUTIONS AND COMFORT MEASURES IN PLACE. WILL GIVE REPORT TO DAY SHIFT FOR CONTINUITY OF CARE.
[2017-02-19 06:48] LABS: CARBON DIOXIDE 33 mmol/L (21-32); CHLORIDE 99 mmol/L (98-107); CREATININE 1.9 mg/dL (0.6-1.3); GLUCOSE 87 mg/dL (74-106); POTASSIUM 4.2 mmol/L (3.5-5.1); SODIUM SERUM 138 mmol/L (136-145); UREA NITROGEN, BLOOD 53 mg/dL (7-18)
[2017-02-19 06:50] LABS: BASOPHILS % (AUTO) 0.1 % (0.0-2.0); EOSINOPHILS # (AUTO) 0.6 /CMM (0.0-0.7); EOSINOPHILS % (AUTO) 5.2 % (0.0-6.0); HEMATOCRIT 26 % (33-45); HEMOGLOBIN 8.3 g/dL (11.5-14.8); LYMPHOCYTES # (AUTO) 1.9 /CMM (0.8-4.8); LYMPHOCYTES % (AUTO) 15.9 % (20.0-44.0); MEAN CORPUSCULAR HEMOGLOBIN 30 PG (26.0-33.0); MEAN CORPUSCULAR HGB CONC 32 g/dl (31.0-36.0); MEAN CORPUSCULAR VOLUME 93 fL (82-100); MONOCYTES # (AUTO) 0.6 /CMM (0.1-1.30); MONOCYTES % (AUTO) 5.3 % (2.0-12.0); NEUTROPHILS # (AUTO) 8.7 /CMM (1.8-8.9); NEUTROPHILS % (AUTO) 73.5 % (43.0-81.0); PLATELET COUNT (AUTO) 353 /CMM (150-450); RDW COEFFICIENT OF VARIATION 18.5 (11.5-15.0); RED BLOOD CELL COUNT(AUTO) 2.79 MIL/uL (4.0-5.2); WHITE BLOOD COUNT (AUTO) 11.9 K/uL (4.3-11.0)
--- NOTE | 2017-02-19 07:58 | NUR ---
MS RN NOTES RECEIVED PATIENT IN BED, AWAKE. A/O X3. ON OXYGEN AT 2L NC, TOLERATING WELL. NO SOB. RIGHT PLEURX CATH INTACT, DRESSING IN PLACE. APPEARS COMFORTABLE IN BED, DENIES ANY DISCOMFORT. ALYSSA MIDLINE PATENT AND INTACT, FLUSHES WELL. CALL LIGHT WITHIN REACH. ON LIVIER MATTRESS FOR SKIN/WOUND MANAGEMENT. WILL CONT TO MONITOR.
[2017-02-19 08:00] VITALS: BP 140/56
[2017-02-19] MEDS: AMIODARONE HCL 200 MG TABLET PO SCH (08:40)
[2017-02-19] MEDS: SEVELAMER CARBONATE 800 MG TABLET PO SCH ×3 (08:40→17:17)
[2017-02-19] MEDS: PRAMIPEXOLE DI-HCL 0.25 MG TABLET PO SCH ×3 (08:40→17:16)
[2017-02-19] MEDS: PROSOURCE / PROSTAT (PYXIS) 30 ML UDC GT SCH (08:40)
[2017-02-19] MEDS: ACIDOPHILUS/BULGARICUS 1 EACH TAB.CHEW PO SCH (08:41)
[2017-02-19] MEDS: CARBIDOPA/LEV CR 50/200 MG 1 UDTAB.SA PO SCH ×3 (08:41→17:14)
[2017-02-19] MEDS: RENAL NOVASOURCE (8OZ) 1 EA BOX PO SCH ×2 (08:41→17:30)
--- NOTE | 2017-02-19 10:20 | NUR ---
ELIQUIS STILL NOT AVAILABLE AT THIS TIME, PHARMACY INFORMED X3, WILL FOLLOW UP.
[2017-02-19] MEDS: HYDROGEL DRESSING 90 GM TUBE TP SCH (10:32)
[2017-02-19] MEDS: APIXABAN 2.5 MG TABLET PO SCH ×2 (10:32→17:14)
[2017-02-19] MEDS ORDERED: APIX2.5T PO (10:37)
--- NOTE | 2017-02-19 10:50 | NUR ---
PATIENT TO BE DISCHARGED HOME WITH HOME HEALTH ORDERED.
--- NOTE | 2017-02-19 11:53 | NUR ---
DR. BERNAL/HEENA INFORMED PATIENT TO BE DISCHARGED HOME TODAY, PER MD LUCY FRANKLIN TO DRAIN EVERY 3 DAYS. PATIENTS DAUGHTER MADE AWARE. Addendum: 02/19/17 at 1317 by LUPE KRAMER RN DISREGARD ABOVE NOTES. CLARIFICATION ORDERS GIVEN BY DR. REMA AUGUSTINE
--- NOTE | 2017-02-19 13:02 | NUR ---
REVIEWED VACCINATION STATUS WITH THE PATIENT, DAUGHTERASAD REFUSING VACCINE TO BE GIVEN, EDUCATE AND EXPLAINED RISK AND BENEFITS OF THE VACCINES, DAUGHTERASAD STATED NOT AT THIS TIME.
--- NOTE | 2017-02-19 13:17 | NUR ---
PATIENT TO BE DISCHARGED HOME TODAY, PLEURX DRAINAGE AT HOME Q [address] REMA AUGUSTINE
[2017-02-19 16:00] VITALS: BP 136/54
--- NOTE | 2017-02-19 18:00 | NUR ---
PATIENT TO BE DISCHARGED HOME TODAY, AWAITING FOR ID FOR ANTIBIOTIC ORDERS. NOTIFIED DR. GREER HARRIS ORDERED TO CONTINUE MERREM 500MG IV Q 12 X 1 WEEK. CHARGE NURSE MADE AWARE, CM INFORMED.
--- NOTE | 2017-02-19 18:20 | NUR ---
WHILE GIVING DISCHARGE INSTRUCTION, TOD PUGH ARRIVED STATED PATIENT WILL BE GETTING GENTAMICIN IV ANTIBIOTIC AT THE DIALYSIS CENTER UPON DISCHARGE HOME. CHARGE NURSE IS AWARE.
--- NOTE | 2017-02-19 19:04 | NUR ---
MS RN CLOSING NOTES PATIENT HAS BEEN CLEARED FOR DISCHARGED HOME BY . VS REMAINS STABLE, BREATHING EVEN AND NON LABORED, NO SOB. MIDLINE ALYSSA REMOVED, GAUZE APPLIED, NO BLEEDING NOTED. RIGHT PLEURX CATH DRESSING CHANGED TODAY, PATIENT TOLERATED WELL, NO LEAKING, NO S/S OF INFECTION ON THE SITE. DISCHARGE INSTRUCTION GIVEN TO THE PATIENTS DAUGHTER-TYRESE WHO VERBALIZED UNDERSTANDING. BELONGINGS CHECKED UPON DC. PATIENT LEFT HOSP IN STABLE CONDITION VIA PRIVATE CAR, ACCOMPANIED BY DAUGHTER-TYRESE.
== END 2017-02-19 19:04 | disposition home health service (06) | DRG 871 ==
LOC: ER 09:36 → ICU 11:33 → TELE1 02-12 15:27 → MEDSG1 02-13 13:50 → ICU 02-16 18:47 → MED 02-18 14:33
PROC: 5A09357 Assistance with Respiratory Ventilation, Less than 24 Consecutive Hours, Continuous Positive Airway Pressure (ICD-10-PCS; principal; 2017-02-11)
PROC: 5A1D70Z Performance of Urinary Filtration, Intermittent, Less than 6 Hours Per Day (ICD-10-PCS; 2017-02-11)
PROC: 05H633Z Insertion of Infusion Device into Left Subclavian Vein, Percutaneous Approach (ICD-10-PCS; 2017-02-11)
PROC: B547ZZA Ultrasonography of Left Subclavian Vein, Guidance (ICD-10-PCS; 2017-02-11)
PROC: 0W9900Z Drainage of Right Pleural Cavity with Drainage Device, Open Approach (ICD-10-PCS; 2017-02-16)
DX: A41.9 Sepsis, unspecified organism (principal); I50.33 Acute on chronic diastolic (congestive) heart failure; J96.21 Acute and chronic respiratory failure with hypoxia; E43 Unspecified severe protein-calorie malnutrition; I13.2 Hypertensive heart and chronic kidney disease with heart failure and with stage 5 chronic kidney disease, or end stage renal disease; G93.40 Encephalopathy, unspecified; J90 Pleural effusion, not elsewhere classified; J18.9 Pneumonia, unspecified organism; D68.59 Other primary thrombophilia; G20 Parkinson's disease; N18.6 End stage renal disease; J96.22 Acute and chronic respiratory failure with hypercapnia; N39.0 Urinary tract infection, site not specified; J98.11 Atelectasis; I48.91 Unspecified atrial fibrillation; I05.2 Rheumatic mitral stenosis with insufficiency; L89.609 Pressure ulcer of unspecified heel, unspecified stage; Z79.01 Long term (current) use of anticoagulants; Z99.2 Dependence on renal dialysis; Z87.440 Personal history of urinary (tract) infections; Z88.2 Allergy status to sulfonamides; Z91.048 Other nonmedicinal substance allergy status; Z79.899 Other long term (current) drug therapy; M41.9 Scoliosis, unspecified; E83.52 Hypercalcemia; E87.6 Hypokalemia; I70.0 Atherosclerosis of aorta; B96.89 Other specified bacterial agents as the cause of diseases classified elsewhere; D64.9 Anemia, unspecified
CPT/HCPCS: 36415; 36600; 71010-TC; 80048-TC; 80053-TC; 80076-TC; 81000-TC; 82803-TC; 82962-TC; 83735-TC; 83880; 83970; 84100-TC; 84484-TC; 85025-TC; 85730-TC; 86850-TC; 87040-TC; 87081-TC; 87086-TC; 87186-TC; 90935-TC; 94660; 94799-TC; 97110-TC; 97530-TC; 99082-TC; A4216; A4606; A6248; A6253; A6402; A6403; J0690; J1644; J1940; J2185; J2405; J7030; J7050; P9047; Z7610

== ENCOUNTER 2017-03-05 14:11 | Outpatient (CLI) | payer MEDICARE, MEDICAID ==
[~2017-03-05 14:11] MED LIST changes: +APIX2.5T PO; -BUME1TAB16 PO; +BUME1TAB5 PO; -CALC500T52 PO; -CINA30TA PO; +CINA30TA2 PO; -RXGEN XX
== END 2017-03-05 23:59 | disposition home or self-care (01) ==
LOC: WOU 14:11
PROVIDERS: ATTEND Surgery
DX: L89.154 Pressure ulcer of sacral region, stage 4 (principal); Z87.891 Personal history of nicotine dependence; I11.0 Hypertensive heart disease with heart failure; I50.9 Heart failure, unspecified; Z79.01 Long term (current) use of anticoagulants; Z95.810 Presence of automatic (implantable) cardiac defibrillator; D64.9 Anemia, unspecified
CPT/HCPCS: 11043; A6402 ×2; J3490